=== PATIENT | male | born 1970 | race Caucasian/White ===

== ENCOUNTER → 2016-09-08 | Outpatient (CLI) | payer OTHER, MEDICARE ==
[2016-09-08 13:57] VITALS: BP 166/99; PULSE 93; RESP 20; TEMP 98.1
--- NOTE | 2016-09-08 14:33 | P.PN ---
Subjective This is follow-up visit for this patient with a history of severe and chronic left lower extremity pain, due to crush injury, and subsequent the patient had multiple surgical interventions, and later on he developed complex regional pain syndrome type I, patient had multiple interventional pain management injection, and he did not have any success for long-term relief, patient concerned about spinal cord stimulator because of his ongoing infection and his poorly controlled diabetes, and is currently on pain medications 1- methadone 10 mg 3 times a day 2- [place] 10/325 every 6 hours 3- Lyrica 75 mg 3 times a day Patient denies any side effects of the medication, denies excessive drowsiness or sleepiness, denies suicidal ideation, and reports that the current pain medication is helping To control the pain and improve activity of daily living Physical Examinations : 1-Constitutiona : Cooperative , not in acute distress . 2-HEENT : nech ; supple , no Lymphadenopathy , no Thyromegaly , normal thyroid size . eyes : no ptosis , no icterus, no photophobia . ENT : normal of hearing , normal oropharynx , no Thrush . 3- Respiratory : Chest clear to auscultations Bilaterally , no wheezing , no Rhonchi . 4- Cardiovascular : regular rate and rhythem , S1 , S2 , no S3 , no S4. 5- Gastrointestinal : abdomen soft no tenderness , bowel sounds positive all four quadrents , no organomegally . 6- Genitourinary : Defferred . 7- neurologic : Cranial nerve II to XII intact , no focal neurological deffecit . 8-psychatric : alert , oriented X 3 , appropriate affect , intact judgment and insight . 9-Lymphatic : no Lymphadenopathy . 10- musculoskeltal : exams of the cervical spine = motor strength normal bilateral upper extremities exams of the Lumber spine = motor strength lower extremities ,thigh and legs .5/5 There is significant swelling, and discoloration, and listhesis in the left lower extremity below the knee. There is dysesthesia and allodynia in the left lower extremity below the knee Assessment and plan = Chronic and severe left lower extremity pain, status post crush injury with multiple surgical interventions and patient developed symptoms of RSD Left Lower Extremity, currently patient had swelling in his left leg and possible infection, patient will follow up with his orthopedic surgeon at [facility], and he already has established relationship with her orthopedic surgeon, -chronic and current use of high-risk medication (Opioids). The patient was counseled about risk of opioid use, psychological risk associated with opioids and was orally counseled to not overuse , abuse , divert ,or sell dictations to take medications as prescribed only , and to restore medication in safe location , and patient counseled against driving while using narcotic medications, and also not to use alcohol or any illicit recreational drugs the patient's verbalized understanding that the lack of compliance will result in failure to renew narcotic prescription and possible discharge from the clinic - diagnoses, prognosis, and treatment options including but not limited to physical therapy, surgical interventions, interventional therapies and medication management including narcotics and adjuvant medication were discussed with the patient and all questions answered to the patient's satisfaction. -medication refile =1-methadone 10 mg every 8 hours dispense 90 with 2 refills , 2-[place] 10/325 every 6 hours dispense 120 2 refills 3-Lyrica 75 mg 3 times a day dispense 90 with 2 refills , next visit we will do a urine drug screen , and also next visit and EKG to check his QT intervals because patient use methadone -procedure=none
== END | disposition home or self-care (01) ==
LOC: PNWHC3 13:07
PROVIDERS: ATTEND Specialist
DX: G90.522 Complex regional pain syndrome I of left lower limb (principal); M79.89 Other specified soft tissue disorders; Z98.890 Other specified postprocedural states; Z79.891 Long term (current) use of opiate analgesic; Z79.899 Other long term (current) drug therapy
CPT/HCPCS: 99211

== ENCOUNTER → 2016-12-15 | Outpatient (CLI) | payer OTHER, MEDICARE ==
[2016-12-15 12:09] VITALS: BP 176/114; PULSE 81; RESP 18; TEMP 98
--- NOTE | 2016-12-16 15:10 | P.PN ---
Subjective This is from visits for this 46 years old male with a chronic history of left lower extremity pain, and retool crush injury and subsequently patient had multiple surgical intervention and tone a developed complex regional pain syndrome type I left lower extremity, he had multiple pain management interventions but he never had long-term benefit from it, is currently, methadone 10 mg to 8 hours, [place] 10/325 every 6 hours and Lyrica 75 mg 3 times a day and Lidoderm patch 5% to be applied to the left lower extremity 12 hours on 12 h off , denies any side effect of the medication he denies any excessive drowsiness or sleepiness and he denies any suicidal ideation, he reported that the current pain medication helping him to control his pain, Physical Examinations : 1-Constitutiona : Cooperative , not in acute distress . 2-HEENT : nech ; supple , no Lymphadenopathy , normal thyroid size . eyes : no ptosis , no icterus, no photophobia . ENT : normal of hearing , normal oropharynx , no Thrush . 3- Respiratory : Chest clear to auscultations Bilaterally , no wheezing , no Rhonchi . 4- Cardiovascular : regular rate and rhythem , S1 , S2 , no S3 , no S4. 5- Gastrointestinal : abdomen soft no tenderness , bowel sounds positive all four quadrents , no organomegally . 6- Genitourinary : Defferred . 7- neurologic : Cranial nerve II to XII intact , no focal neurological deffecit . 8-psychatric : alert , oriented X 3 , appropriate affect , intact judgment and insight . 9-Lymphatic : no Lymphadenopathy . 10- musculoskeltal : there is swelling and discoloration, and allodynia and dysesthesia, lower extremity below the knee, Assessment and plan= comples regional pain syndrome type one left lower extremity , stable on the current medication continue the current medication and he will follow up in 2 months , Objective - Vital Signs Vital signs: Vital Signs Temp 98.0 F 12/15/16 11:59 Pulse 81 12/15/16 11:59 Resp 18 12/15/16 11:59 BP 176/114 12/15/16 11:59 Pulse Ox Intake & Output 12/15/16 12/16/16 12/16/16 18:59 06:59 18:59 Weight 145.15 kg
== END | disposition home or self-care (01) ==
LOC: PNWHC3 11:43
PROVIDERS: ATTEND Specialist
DX: G90.522 Complex regional pain syndrome I of left lower limb (principal); Z79.899 Other long term (current) drug therapy
CPT/HCPCS: 99211

== ENCOUNTER → 2017-02-09 | Outpatient (CLI) | payer OTHER, MEDICARE ==
[2017-02-09 13:28] VITALS: BP 156/100; PULSE 74; RESP 16; TEMP 97.5
--- NOTE | 2017-02-09 14:02 | P.PN ---
Progress Note - Text Patient returns for followup for chronic left lower extremity pain worst in the ankle and lower leg due to crush injury, subsequent surgery, and development of complex regional pain syndrome. Patient has not undergone any interventional procedures with our clinic, but has tried lumbar sympathetic blocks in the past with different pain physicians without significant relief and is concerned about spinal cord stimulator implant from a previous opinion from Dr. Manuel as he has tendency to get infections secondary to his weight and poorly controlled DM. Patient continues on methadone and [place] medications for pain with decent relief. Patient denies adverse drug effects from medications. Today, pt denies new-onset weakness, bowel/bladder incontinence, or any other signs or symptoms of cauda equina syndrome. Patient is requesting Lyrica script today. In addition to above, 13-point review of systems is also negative for chest pain , shortness of breath, changes in vision, changes in hearing, new onset weakness , abdominal pain, diarrhea, extreme fatigue, malaise, fever, skin changes, homicidal or suicidal ideation, or bowel or bladder incontinence. Gen: WDWN, AAOx3, NAD, uses cane HEENT: NCAT, EOMI, hearing grossly normal Pulm: resp unlabored Abd: soft, NT, ND Neck: supple, trachea midline Lower extremity: +allodynia, + hyperalgesia along LLE worst in ankle; significant deformity in LLE with swelling. Decreased ROM dorsiflexion/ plantarflexion and decreased strength; decreased ROM and strength in knee flexion/extension Neuro: CN II-XII grossly intact, muscle strength lower extremities 3+/5 LLE in ankle, 5/5 RLE ankle Assessment: 1. complex regional pain syndrome type II left lower extremity 2. chronic pain syndrome 3. morbid obesity Plan: 1. Explanation: Opioid and psychological risk scores were reviewed. Diagnoses , prognoses, and multiple treatment options including but not limited to physical therapy, interventional therapies, adjuvant medical therapies, narcotic medication therapies, and surgery were discussed with the patient and all questions were answered to the patient's satisfaction. 2. Opioid agreement: Patient signed narcotic agreement previously, and was orally counseled to not overuse, abuse, divert, or cell medications, and to take them as prescribed by only 1 healthcare provider. The patient was also counseled to take medications as prescribed by only 1 healthcare provider and to store opioid medications in the safe and preferably locked location. Patient was also counseled against driving while using narcotic medications and also to not use alcohol or any illicit or recreational drugs. The patient verbalized understanding that lack of compliance with any of the above and likely result in failure to renew narcotic prescriptions, possible discharge from the clinic, and possible legal ramifications thereafter if indicated. 3. Counseling: The patient was counseled extensively on BODY MASS INDEX, EXERCISE. Specifically, the patient was instructed regarding the importance of obesity and exercise in the context of both chronic pain and overall health. 4. Procedures: None 5. Consultations: None 6. Investigations: none 7. Medications: Methadone 10 mg #90 with one refill, [place] decreased to 10/ 325 #90 with one refill; increased Lyrica to 100 mg po TID PQRS measures: 1-Patient's medications are documented in the chart. 2-Tobacco use is negative. 3-Patient has not had a pneumococcal vaccine. 4-Advanced care planning discussed, patient cannot give. 5-Opioid contract signed with the patient. 6-Pain positive, follow-up visit or procedure scheduled 7-Patient's blood pressure measured and documented, and patient will follow up with the primary care due to hypertension. 8-Patient's weight was measured, and body mass index ABOVE the normal limits, and counseling was done. Patient instructed to follow up with PCP for weight loss techniques and possible pharmacologic management. 9-Patient WAS NOT identified as an unhealthy alcohol user.
== END | disposition home or self-care (01) ==
LOC: PNWHC3 13:06
PROVIDERS: ATTEND Anesthesiology
DX: G57.72 Causalgia of left lower limb (principal); G89.4 Chronic pain syndrome; E66.01 Morbid (severe) obesity due to excess calories
CPT/HCPCS: 80307; 80356; 80358; 80364; 99211

== ENCOUNTER → 2017-04-06 | Outpatient (CLI) | payer OTHER, MEDICARE ==
--- NOTE | 2017-04-06 15:41 | P.PN ---
Progress Note - Text This is a 46-year-old male with left lower extremity complex regional pain syndrome due to trauma. The patient has severe swelling in the left calf and ankle. His pain has been well-controlled with a combination of methadone 30 mg a day [place] 10 mg 3 times a day , and Lyrica 100 mg 3 times a day. We will continue with these medications and I will repeat the EKG to rule out any prolongation of the QT interval on his next visit. He denies any heart palpitations. He is alert oriented 3 in no apparent distress he does not show any signs of increased sedation or any drug-seeking behavior. He denies any suicidal ideation. We will see the patient 3 months from now.
[2017-04-06 15:47] VITALS: BP 189/95; PULSE 89; RESP 14
== END ==
LOC: PNWHC3 14:27
PROVIDERS: ATTEND Anesthesiology
DX: M79.605 Pain in left leg (principal)
CPT/HCPCS: 99211

== ENCOUNTER → 2017-06-29 | Outpatient (CLI) | payer MEDICARE, OTHER ==
[2017-06-29 13:00] VITALS: RESP 16
--- NOTE | 2017-06-29 13:21 | P.PN ---
Progress Note - Text Progress Note Date: 06/29/17 This is a 46-year-old male with history of complex regional pain syndrome in the left lower extremity due to a job injury. The patient is on disability. His been on a stable dose of methadone 30 mg a day and [place] 3 times a day. He also uses TENS unit to help with this pain. He does not show any drug-seeking behavior and he denies any suicidal or homicidal thoughts. Today I will refill his prescriptions for 3 months I will give him prescription for TENS unit also I will send him to have an EKG to rule out any QT prolongation even though the risk of this happening with the such a small dose of methadone at 30 mg a day is low but just to be extra cautious. PQRS measures: 1-Patient's medications are documented in the chart. 2-Tobacco use is negative, counseling given 3-Patient has had no pneumococcal vaccine. 4-Advanced care planning discussed, patient unable to give 5-Opioid contract signed with the patient. 6-Pain positive, follow-up visit or procedure scheduled 7-Patient's blood pressure measured and documented .BP is elevated. Patient will follow up with his primary care physician about that.. 8-Patient's weight was measured, and body mass index ABOVE the normal limits, and counseling was done. Patient instructed to follow up with PCP. 9-Patient WAS NOT identified as an unhealthy alcohol user.
[2017-06-29 13:44] VITALS: BP 171/100; PULSE 89
== END | disposition home or self-care (01) ==
LOC: PNWHC3 12:16
PROVIDERS: ATTEND Anesthesiology
DX: M79.605 Pain in left leg (principal); Z79.891 Long term (current) use of opiate analgesic
CPT/HCPCS: 93005; 99211

== ENCOUNTER → 2017-09-21 | Outpatient (CLI) | payer OTHER, MEDICARE ==
[2017-09-21 14:16] VITALS: BP 150/93; PULSE 87; RESP 18; TEMP 98.7
--- NOTE | 2017-09-21 14:28 | P.PN ---
Subjective Progress Note Date: 09/21/17 This is follow-up visit for this patient with a history of severe and chronic left lower extremity pain secondary to crush injury to his left lower extremity, patient had multiple surgical intervention and later on he developed complex regional pain syndrome type I left lower extremity, he had multiple pain intervention is procedure, and he never get long-term benefit , Currently she is on methadone 10 mg every 8 hours and [place] 10/325 every 8 hours , Lyrica 100 mg 3 times a day Patient denies any side effects of the medication, denies excessive drowsiness or sleepiness, denies suicidal ideation, and reports that the current pain medication is helping To control the pain and improve activity of daily living Patient denies any motor or sensory deficit , patient denies any fever or night sweats, denies any change in the bowel movements or urination Physical Examinations : 1-Constitutiona : Cooperative , not in acute distress . 2-HEENT : nech ; supple , no Lymphadenopathy , no Thyromegaly , normal thyroid size . eyes : no ptosis , no icterus, no photophobia . ENT : normal of hearing , normal oropharynx , no Thrush . 3- Respiratory : Chest clear to auscultations Bilaterally , no wheezing , no Rhonchi . 4- Cardiovascular : regular rate and rhythem , S1 , S2 , no S3 , no S4. 5- Gastrointestinal : abdomen soft no tenderness , bowel sounds positive all four quadrents , no organomegally . 6- Genitourinary : Defferred . 7- neurologic : Cranial nerve II to XII intact , no focal neurological deffecit . 8-psychatric : alert , oriented X 3 , appropriate affect , intact judgment and insight . 9-Lymphatic : no Lymphadenopathy . 10- musculoskeltal : There is swelling and discoloration and anadenia and dysesthesia in the left lower extremity below the knee Assessment and plan = Complex regional pain syndrome type I left lower extremity Patient had no benefit from interventional pain management procedures, he denies any side effects of the medication continue the current medication, MAPS reviewed, prescription refill for 3 months for methadone 10 mg 3 times a day dispense 90 with 2 refills, [place] 10/ 325 every 8 hours dispense 90 with 2 refills, Lyrica 100 mg 3 times a day dispense 90 with 2 refills , next visit consider UDS Objective - Vital Signs Vital signs: Vital Signs Temp 98.7 F 09/21/17 14:05 Pulse 87 09/21/17 14:05 Resp 18 09/21/17 14:05 BP 150/93 09/21/17 14:05 Pulse Ox 97 09/21/17 14:05 Intake & Output 09/20/17 09/21/17 09/21/17 18:59 06:59 18:59 Weight 131.542 kg
== END | disposition home or self-care (01) ==
LOC: PNWHC3 13:15
PROVIDERS: ATTEND Specialist
DX: G90.522 Complex regional pain syndrome I of left lower limb (principal); Z79.891 Long term (current) use of opiate analgesic; Z79.899 Other long term (current) drug therapy
CPT/HCPCS: 99211

== ENCOUNTER → 2017-12-27 | Outpatient (CLI) | payer OTHER, MEDICARE ==
[2017-12-27 13:27] VITALS: BP 205/115; PULSE 94; RESP 16
--- NOTE | 2017-12-27 20:04 | P.PN ---
Subjective Progress Note Date: 12/27/17 This is a follow-up visit for this 47 years old male with a chronic history of severe left lower extremity pain, is very close with complex regional pain syndrome type I left lower extremity, we have done multiple pain intervention is procedure, and patient with only short-term benefit from it, and he is currently on pain medication methadone 10 mg 3 times a day, [place] 10/325 every 8 hours when necessary, and Lyrica 100 mg 3 times a day, he denies any side effects of the medication he denies any excessive drowsiness or sleepiness, and he reported the current medication helping him to control the pain and electrical activity of daily livings Objective - Vital Signs Vital signs: Vital Signs Temp Pulse 94 12/27/17 13:16 Resp 16 12/27/17 13:16 BP 205/115 12/27/17 13:16 Pulse Ox 97 12/27/17 13:16 Intake & Output 12/27/17 12/27/17 12/28/17 06:59 18:59 06:59 Weight 135.171 kg - Exam Physical Examinations : 1-Constitutiona : Cooperative , not in acute distress . 2-HEENT : nech ; supple , no Lymphadenopathy , normal thyroid size . eyes : no ptosis , no icterus, no photophobia . ENT : normal of hearing , normal oropharynx , no Thrush . 3- Respiratory : Chest clear to auscultations Bilaterally , no wheezing , no Rhonchi . 4- Cardiovascular : regular rate and rhythem , S1 , S2 , no S3 , no S4. 5- Gastrointestinal : abdomen soft no tenderness , bowel sounds , no organomegally . 6- Genitourinary : Defferred . 7- neurologic : Cranial nerve II to XII intact , no focal neurological deffecit . 8-psychatric : alert , oriented X 3 , appropriate affect , intact judgment and insight . 9-Lymphatic : no Lymphadenopathy . 10- musculoskeltal : Left lower extremity discoloration and swelling , positive allodynia left lower extremity below the knee area Assessment and Plan Plan: Assessment and plan=1-complex regional pain syndrome type I left lower extremity. Patient had no benefit from interventional pain management, 2-chronic and current use of high-risk medication specifically opiate, patient currently on methadone 10 mg 3 times a day, [place] 10/325 Every 8 hours when necessary, and Lyrica 100 mg 3 times a day, he denies any side effects of the medication, the prescription refill 2 months is given , urine drug screen ordered today. 3-blood pressure was extremely high and I explained to the patient that he had hypertension emergency and he needs to go to the In the emergency room, for management of his blood pressure, I explained to the patient the risk of not treating high blood pressure which could cause, stroke heart attack liver and kidney damage Time with Patient: Less than 30
== END | disposition home or self-care (01) ==
LOC: PNWHC3 13:01
PROVIDERS: ATTEND Specialist
DX: G90.522 Complex regional pain syndrome I of left lower limb (principal); M79.605 Pain in left leg; I10 Essential (primary) hypertension; Z79.891 Long term (current) use of opiate analgesic
CPT/HCPCS: 80356; 99211

== ENCOUNTER → 2018-02-21 | Outpatient (CLI) | payer MEDICARE, OTHER ==
[2018-02-21 13:29] VITALS: BP 138/97; PULSE 91; RESP 18
--- NOTE | 2018-02-21 14:13 | P.PN ---
Subjective Progress Note Date: 02/21/18 Principal diagnosis: Complex regional pain syndrome in the left leg. This is a 47-year-old male with history of work injury which crashed his left leg. The patient has constant pain in the left upper extremity with severe swelling and the formation of the left calf area. The pain gets worse by weight -bearing activities. The patient has been using methadone 30 mg per day and [place] 10 mg 3 times a day. His last QT interval was 421 ms. Objective - Vital Signs Vital signs: Vital Signs Temp Pulse 91 02/21/18 13:20 Resp 18 02/21/18 13:20 BP 138/97 02/21/18 13:20 Pulse Ox 97 02/21/18 13:20 Intake & Output 02/20/18 02/21/18 02/21/18 18:59 06:59 18:59 Weight 127.006 kg - Constitutional General appearance: Present: morbidly obese - EENT Eyes: Present: PERRLA - Respiratory Respiratory: bilateral: CTA - Cardiovascular Heart sounds: normal: S1, S2 - Neurologic Neurologic Comment(s): The patient has hyperactive left knee reflex and absent left ankle reflex. He has no allodynia to touch in the deformed area of his left leg. His left calf is huge because of his injury. Neurologic: Present: CNII-XII intact - Psychiatric Psychiatric: Present: A&O x's 3, appropriate affect Assessment and Plan Plan: This is a 47-year-old gentleman with a combination of mechanical and neuropathic pain and possible complex regional pain syndrome in the left leg. There is no allodynia to touch in the injected area. The patient is on a daily dose of 30 mg of methadone and usually at this dose he don't see QT interval changes, however to be on the safe side I would order a 12-lead EKG. I will refill his methadone and [place]. We will see him in 2 months.
== END | disposition home or self-care (01) ==
LOC: PNWHC3 12:54
PROVIDERS: ATTEND Anesthesiology
DX: G89.4 Chronic pain syndrome (principal); I45.81 Long QT syndrome
CPT/HCPCS: 93005; 99211

== ENCOUNTER → 2018-08-14 | Outpatient (CLI) | payer MEDICARE, OTHER ==
[2018-08-14 13:24] VITALS: BP 203/104; PULSE 117; RESP 16
--- NOTE | 2018-08-15 10:41 | P.PN ---
Subjective Progress Note Date: 08/14/18 This is a follow-up visit for this 47 years old male with a chronic history of severe left lower extremity pain, started after he had traumatic injury to his left lower extremity, he is Diagnosed with complex regional pain syndrome type I left lower extremity, we have done multiple pain intervention is procedure, and patient with only short-term benefit from it, and he is currently on pain medication methadone 10 mg 3 times a day, [place] 10/325 every 8 hours when necessary, he denies any side effects of the medication he denies any excessive drowsiness or sleepiness, and he reported the current medication helping him to control the pain and electrical activity of daily livings Physical Examinations : 1-Constitutiona : Cooperative , not in acute distress . 2-HEENT : nech ; supple , no Lymphadenopathy , normal thyroid size . eyes : no ptosis , no icterus, no photophobia . ENT : normal of hearing , normal oropharynx , no Thrush . 3- Respiratory : Chest clear to auscultations Bilaterally , no wheezing , no Rhonchi . 4- Cardiovascular : regular rate and rhythem , S1 , S2 , no S3 , no S4. 5- Gastrointestinal : abdomen soft no tenderness , bowel sounds , no organomegally . 6- Genitourinary : Defferred . 7- neurologic : Cranial nerve II to XII intact , no focal neurological deffecit . 8-psychatric : alert , oriented X 3 , appropriate affect , intact judgment and insight . 9-Lymphatic : no Lymphadenopathy . 10- musculoskeltal : Left lower extremity discoloration and swelling , positive allodynia left lower extremity below the knee area Assessment and plan=1-complex regional pain syndrome type I left lower extremity. Patient had no benefit from interventional pain management, 2-chronic and current use of high-risk medication specifically opiate, patient currently on methadone 10 mg 3 times a day, [place] 10/325 every 8 hours dispense 90 with 1 refill he denies any side effects of the medication, the prescription refill 2 months is given , MAPS reviewed and it was ok Patient will follow up with his trauma surgeon for reevaluation . Blood pressure was extremely elevated and I discussed with the patient and the risk of not treating blood pressure, patient reported that he already taking blood pressure medication and is following up with his primary care And I explained to the patient that he has a blood pressure emergency and need to be treated FERNANDO PQRS Measure Charge Sheet Measure #130: Documentation of Current Meds in Medical Chart: Patient's medications documented in chart Measure #226: Tobacco Use: Screen & Cessation Intervention: Pt not a tobacco user Measure #111: Pneumonia Vaccination: Pneumococcal vaccine NOT administered or previously given Measure #47: Advance Care Plan: Advance care planning discussed & documented, pt chose/unable to give Measure #412: Opioid Treatment Agreement: Documented signed opioid trtmnt agreemnt min once during opioid trtmnt Measure #408: Opioid Therapy Follow-up Evaluation: Patient had f/u eval minimum every 3 months during opioid therapy Measure #317: Preventitive Care & Scrn High Bld Press & F/U: Blood pressure elevated he will follow up with his primary care Measure #128: Body Mass Index (BMI) Screening & Follow-up: BMI documented ABOVE normal parameters - f/u documented Measure #131: Pain Assessment & Follow-up: Pain positive & plan documented, Follow-up scheduled Measure #431: Unhealthy Alcohol Use Preventative Care & Scrn: Patient not identified as an unhealthy alcohol user PQRS Narrative: - Controlled Substance Measures Is patient prescribed a controlled substance at discharge?: Yes When asked, does pt state using other controlled substances?: No If prescribed controlled substance>3 days was MAPS reviewed?: Yes If Rx opioid, was Start Talking consent form obtained?: No If opioid is for acute pain is fill amount 7 days or less?: No Was information provided regarding opioid addiction?: Yes Objective - Vital Signs Vital signs: Vital Signs Temp Pulse 117 H 08/14/18 13:19 Resp 16 08/14/18 13:19 BP 203/104 08/14/18 13:19 Pulse Ox 94 L 08/14/18 13:19 Intake & Output 08/14/18 08/15/18 08/15/18 18:59 06:59 18:59 Weight 111.13 kg
== END ==
LOC: PNWHC3 12:50
PROVIDERS: ATTEND Specialist
DX: G90.522 Complex regional pain syndrome I of left lower limb (principal); Z79.891 Long term (current) use of opiate analgesic; Z79.899 Other long term (current) drug therapy
CPT/HCPCS: 99211

== ENCOUNTER → 2018-10-09 | Outpatient (CLI) | payer MEDICARE, OTHER ==
[2018-10-09 13:26] VITALS: BP 149/89; PULSE 81; RESP 16
--- NOTE | 2018-10-10 09:55 | P.PN ---
Subjective Progress Note Date: 10/09/18 This is a follow-up visit for this 48 years old male with a chronic history of severe left lower extremity pain, started after he had traumatic injury to his left lower extremity, he is Diagnosed with complex regional pain syndrome type I left lower extremity, we have done multiple pain intervention is procedure, and patient with only short-term benefit from it, and he is currently on pain medication methadone 10 mg 3 times a day, [place] 10/325 every 8 hours when necessary, he denies any side effects of the medication he denies any excessive drowsiness or sleepiness, and he reported the current medication helping him to control the pain and electrical activity of daily livings Physical Examinations : -Constitutiona : Cooperative , not in acute distress . -HEENT : nech ; supple , no Lymphadenopathy , normal thyroid size . eyes : no ptosis , no icterus, no photophobia . . - musculoskeltal : Left lower extremity discoloration and swelling, positive allodynia left lower extremity below the knee area Assessment and plan=1-complex regional pain syndrome type I left lower extremity. Patient had no benefit from interventional pain management, 2-chronic and current use of high-risk medication specifically opiate, patient currently on methadone 10 mg 3 times a day, [place] 10/325 every 8 hours dispense 90 with 1 refill he denies any side effects of the medication, the prescription refil MAPS reviewed and it was ok Patient will follow up with his trauma surgeon for reevaluation . Blood pressure elevated and I discussed with the patient and the risk of not treating blood pressure, patient reported that he already taking blood pressure medication and is following up with his primary care PQRS Measure Charge Sheet Measure #130: Documentation of Current Meds in Medical Chart: Patient's medications documented in chart Measure #226: Tobacco Use: Screen & Cessation Intervention: Pt not a tobacco user Measure #111: Pneumonia Vaccination: Pneumococcal vaccine NOT administered or previously given Measure #47: Advance Care Plan: Advance care planning discussed & documented, pt chose/unable to give Measure #412: Opioid Treatment Agreement: Documented signed opioid trtmnt agreemnt min once during opioid trtmnt Measure #408: Opioid Therapy Follow-up Evaluation: Patient had f/u eval minimum every 3 months during opioid therapy Measure #317: Preventitive Care & Scrn High Bld Press & F/U: Blood pressure elevated he will follow up with his primary care Measure #128: Body Mass Index (BMI) Screening & Follow-up: BMI documented ABOVE normal parameters - f/u documented Measure #131: Pain Assessment & Follow-up: Pain positive & plan documented, Follow-up scheduled Measure #431: Unhealthy Alcohol Use Preventative Care & Scrn: Patient not identified as an unhealthy alcohol user PQRS Narrative: - Controlled Substance Measures Is patient prescribed a controlled substance at discharge?: Yes When asked, does pt state using other controlled substances?: No If prescribed controlled substance>3 days was MAPS reviewed?: Yes If Rx opioid, was Start Talking consent form obtained?: No If opioid is for acute pain is fill amount 7 days or less?: No Was information provided regarding opioid addiction?: Yes Objective - Vital Signs Vital signs: Vital Signs Temp Pulse 81 10/09/18 13:15 Resp 16 10/09/18 13:15 BP 149/89 10/09/18 13:15 Pulse Ox 98 10/09/18 13:15 Intake & Output 10/09/18 10/10/18 10/10/18 18:59 06:59 18:59 Weight 131.542 kg
== END ==
LOC: PNWHC3 12:45
PROVIDERS: ATTEND Specialist
DX: G90.522 Complex regional pain syndrome I of left lower limb (principal); Z79.891 Long term (current) use of opiate analgesic; Z79.899 Other long term (current) drug therapy
CPT/HCPCS: 99211

== ENCOUNTER → 2018-12-04 | Outpatient (CLI) | payer MEDICARE, OTHER ==
--- NOTE | 2018-12-04 12:39 | P.PN ---
Subjective Progress Note Date: 12/04/18 This is a 48-year-old gentleman with history of complex regional pain syndrome in the left leg status post work injury. The patient's pain has been relatively well controlled with methadone and [place]. He failed to respond to interventional pain procedures with prolonged relief of pain. His orthopedic garcía rgeon is going to put him in a special type of socks as he states. The last time he felt his prescriptions was on 11/15/2018. Today, pt denies new-onset weakness, bowel/bladder incontinence, or any other signs or symptoms of cauda equina syndrome. There are no signs of acute intoxication, and no indications of medication diversion or overuse. In addition to above, 13-point review of systems is also negative for chest pain, shortness of breath, changes in vision, changes in hearing, new onset weakness, abdominal pain, diarrhea, extreme fatigue, malaise, fever, skin changes, homicidal or suicidal ideation, or bowel or bladder incontinence. Vital Signs: Reviewed in EMR Gen: AAOx3, NAD HEENT: PERRLA,hearing grossly normal Pulm: resp unlabored,CTA Heart:S1,S2, No [place] Neck: supple, trachea midline Positive allodynia to touch in the left leg below the knee level. Swelling and the formation of the left leg beneath the knee level. Neuro: CN II-XII grossly intact, Imaging: Reviewed in EMR/chart Assessment: CRPS 1 in the left leg Morbid obesity Opioid dependence Plan: 1. Explanation: Opioid and psychological risk scores were reviewed. Diagnoses, prognoses, and multiple treatment options including but not limited to physical therapy, interventional therapies, adjuvant medical therapies, narcotic medication therapies, and surgery were discussed with the patient and all questions were answered to the patient's satisfaction. 2. Opioid agreement: Signed with the patient and the patient is warned not to use opioids while driving or before driving and not to combine opioids with benzodiazepines or alcohol. 3. Counseling: The patient was counseled extensively on SMOKING CESSATION, BODY MASS INDEX, EXERCISE. Specifically, the patient was instructed regarding the importance of smoking cessation, obesity, and exercise in the context of both chronic pain and overall health. 4. Procedures: None 5. Consultations: None 6. Investigations: None 7. Medications: Continue methadone 30 mg a day and [place] 10 mg 3 times a day 8. Disposition: Return to clinic in 6 weeks 9. Maps were reviewed and were appropriate. PQRS measures: 1-Patient's medications are documented in the chart. 2-Tobacco use is negative, counseling given 3-Patient has not had a pneumococcal vaccine. 4-Advanced care planning discussed, patient unable to give 5-Opioid contract signed with the patient. 6-Pain positive, follow-up visit or procedure scheduled 7-Patient's blood pressure measured and documented above normal limits. The patient will follow up with his primary care physician. 8-Patient's weight was measured, and body mass index ABOVE the normal limits, and counseling was done. Patient instructed to follow up with PCP. 9-Patient WAS NOT identified as an unhealthy alcohol user. Controlled Substance Measures Is patient prescribed a controlled substance at discharge?: Yes When asked, does pt state using other controlled substances?: No If prescribed controlled substance>3 days was MAPS reviewed?: Yes If Rx opioid, was Start Talking consent form obtained?: Yes If opioid is for acute pain is fill amount 7 days or less?: No Was information provided regarding opioid addiction?: Yes Objective - Vital Signs Vital signs: Intake & Output 12/03/18 12/04/18 12/04/18 18:59 06:59 18:59 Weight 131.542 kg
[2018-12-04 12:41] VITALS: BP 189/97; PULSE 78; RESP 18
== END ==
LOC: PNWHC3 12:14
PROVIDERS: ATTEND Anesthesiology
DX: G90.522 Complex regional pain syndrome I of left lower limb (principal); E66.01 Morbid (severe) obesity due to excess calories; F11.20 Opioid dependence, uncomplicated; Z79.899 Other long term (current) drug therapy; Z79.891 Long term (current) use of opiate analgesic
CPT/HCPCS: 99211

== ENCOUNTER → 2019-01-22 | Outpatient (CLI) | payer MEDICARE, OTHER ==
[2019-01-22 14:09] VITALS: BP 181/105; PULSE 93; RESP 18
--- NOTE | 2019-01-22 14:18 | P.PN ---
Subjective Progress Note Date: 01/22/19 This is a 48-year-old gentleman with history of complex regional pain syndrome in the left leg status post work injury. The patient's pain has been relatively well controlled with methadone and [place]. He failed to respond to interventional pain procedures with prolonged relief of pain. He is still await ing on the brace that his orthopedic surgeon was going to design for his left leg. The patient had good response to usage of TENS unit previously. Today, pt denies new-onset weakness, bowel/bladder incontinence, or any other signs or symptoms of cauda equina syndrome. There are no signs of acute intoxication, and no indications of medication diversion or overuse. In addition to above, 13-point review of systems is also negative for chest pain, shortness of breath, changes in vision, changes in hearing, new onset weakness, abdominal pain, diarrhea, extreme fatigue, malaise, fever, skin changes, homicidal or suicidal ideation, or bowel or bladder incontinence. Vital Signs: Reviewed in EMR Gen: AAOx3, NAD HEENT: PERRLA,hearing grossly normal Pulm: resp unlabored,CTA Heart: Regular Neck: supple, trachea midline Positive allodynia to touch in a few patches in the left leg below the knee level. Swelling of the left leg beneath the knee level. Neuro: CN II-XII grossly intact, Imaging: Reviewed in EMR/chart Assessment: CRPS 1 in the left leg Morbid obesity Opioid dependence Plan: 1. Explanation: Opioid and psychological risk scores were reviewed. Diagnoses, prognoses, and multiple treatment options including but not limited to physical therapy, interventional therapies, adjuvant medical therapies, narcotic medication therapies, and surgery were discussed with the patient and all questions were answered to the patient's satisfaction. 2. Opioid agreement: Signed with the patient and the patient is warned not to use opioids while driving or before driving and not to combine opioids with benzodiazepines or alcohol. 3. Counseling: The patient was counseled extensively on SMOKING CESSATION, BODY MASS INDEX, EXERCISE. Specifically, the patient was instructed regarding the importance of smoking cessation, obesity, and exercise in the context of both chronic pain and overall health. 4. Procedures: None 5. Consultations: The patient had good response to TENS unit previously Mike will give him prescription for that today 6. Investigations: None 7. Medications: Continue methadone 30 mg a day and [place] 10 mg 3 times a day 8. Disposition: Return to clinic in 8 weeks 9. Maps were reviewed and were appropriate. PQRS measures: 1-Patient's medications are documented in the chart. 2-Tobacco use is negative, counseling given 3-Patient has not had a pneumococcal vaccine. 4-Advanced care planning discussed, patient unable to give 5-Opioid contract signed with the patient. 6-Pain positive, follow-up visit or procedure scheduled 7-Patient's blood pressure measured and documented above normal limits. The patient will follow up with his primary care physician. 8-Patient's weight was measured, and body mass index ABOVE the normal limits, and counseling was done. Patient instructed to follow up with PCP. 9-Patient WAS NOT identified as an unhealthy alcohol user. Objective - Vital Signs Vital signs: Vital Signs Temp Pulse 93 01/22/19 14:05 Resp 18 01/22/19 14:05 BP 181/105 01/22/19 14:05 Pulse Ox 96 01/22/19 14:05 Intake & Output 01/21/19 01/22/19 01/22/19 18:59 06:59 18:59 Weight 127.006 kg
== END | disposition home or self-care (01) ==
LOC: PNWHC3 13:50
PROVIDERS: ATTEND Anesthesiology
DX: G90.522 Complex regional pain syndrome I of left lower limb (principal); F11.20 Opioid dependence, uncomplicated; E66.01 Morbid (severe) obesity due to excess calories; Z68.38 Body mass index [BMI] 38.0-38.9, adult; Z79.899 Other long term (current) drug therapy; Z79.891 Long term (current) use of opiate analgesic
CPT/HCPCS: 99211

== ENCOUNTER → 2019-04-02 | Outpatient (CLI) | payer OTHER, MEDICARE ==
[2019-04-02 13:38] VITALS: BP 155/93; PULSE 93; RESP 18
--- NOTE | 2019-04-02 14:14 | P.PN ---
Subjective Progress Note Date: 04/02/19 This is a follow-up visit for this 48 years old male with a chronic history of severe left lower extremity pain,he is Diagnosed with complex regional pain syndrome type I left lower extremity, we have done multiple pain intervention is procedure, and patient with only short-term benefit from it, and he is currently on pain medication methadone 10 mg 3 times a day, [place] 10/325 every 8 hours when necessary, he denies any side effects of the medication he denies any excessive drowsiness or sleepiness, and he reported the current medication helping him to control the pain and electrical activity of daily livings Physical Examinations : -Constitutiona : Cooperative , not in acute distress . -HEENT nech : supple , no Lymphadenopathy , normal thyroid size . eyes : no ptosis , no icterus, no photophobia . ENT : normal of hearing , normal oropharynx , no Thrush . - neurologic : Cranial nerve II to XII intact , no focal neurological deffecit . -psychatric : alert , oriented X 3 , appropriate affect , intact judgment and insight . -Lymphatic : no Lymphadenopathy . - musculoskeltal : Left lower extremity discoloration and swelling, positive allodynia left lower extremity below the knee area Assessment and plan=1-complex regional pain syndrome type I left lower extremity. Patient had no benefit from interventional pain management, 2-chronic and current use of high-risk medication specifically opiate, patient currently on methadone 10 mg 3 times a day, [place] 10/325 every 8 hours dispense 90 with 1 refill he denies any side effects of the medication, the prescription refill for 2 months MAPS reviewed and it was ok PQRS Measure Charge Sheet Measure #130: Documentation of Current Meds in Medical Chart: Patient's medications documented in chart Measure #226: Tobacco Use: Screen & Cessation Intervention: Pt not a tobacco user Measure #111: Pneumonia Vaccination: Pneumococcal vaccine NOT administered or previously given Measure #47: Advance Care Plan: Advance care planning discussed & documented, pt chose/unable to give Measure #412: Opioid Treatment Agreement: Documented signed opioid trtmnt agreemnt min once during opioid trtmnt Measure #408: Opioid Therapy Follow-up Evaluation: Patient had f/u eval minimum every 3 months during opioid therapy Measure #317: Preventitive Care & Scrn High Bld Press & F/U: Blood pressure is 155 over history elevated and he will follow up with the primary care Measure #128: Body Mass Index (BMI) Screening & Follow-up: BMI documented ABOVE normal parameters - f/u documented Measure #131: Pain Assessment & Follow-up: Pain positive & plan documented, Follow-up scheduled Measure #431: Unhealthy Alcohol Use Preventative Care & Scrn: Patient not identified as an unhealthy alcohol user PQRS Narrative: - Controlled Substance Measures Is patient prescribed a controlled substance at discharge?: Yes When asked, does pt state using other controlled substances?: No If prescribed controlled substance>3 days was MAPS reviewed?: Yes If Rx opioid, was Start Talking consent form obtained?: No If opioid is for acute pain is fill amount 7 days or less?: No Was information provided regarding opioid addiction?: Yes Objective - Vital Signs Vital signs: Vital Signs Temp Pulse 93 04/02/19 13:27 Resp 18 04/02/19 13:27 BP 155/93 04/02/19 13:27 Pulse Ox 97 04/02/19 13:27 Intake & Output 04/01/19 04/02/19 04/02/19 18:59 06:59 18:59 Weight 129.274 kg Assessment and Plan Time with Patient: Less than 30
== END | disposition home or self-care (01) ==
LOC: PNWHC3 13:02
PROVIDERS: ATTEND Specialist
DX: G90.522 Complex regional pain syndrome I of left lower limb (principal); Z79.891 Long term (current) use of opiate analgesic; Z79.899 Other long term (current) drug therapy
CPT/HCPCS: 99211

== ENCOUNTER → 2019-05-28 | Outpatient (CLI) | payer OTHER, MEDICARE ==
[2019-05-28 12:40] VITALS: BP 160/99; PULSE 91; RESP 16
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
== END | disposition home or self-care (01) ==
LOC: PNWHC3 12:14
PROVIDERS: ATTEND Anesthesiology
DX: G89.4 Chronic pain syndrome (principal); G57.72 Causalgia of left lower limb; E66.01 Morbid (severe) obesity due to excess calories; Z68.38 Body mass index [BMI] 38.0-38.9, adult; Z79.891 Long term (current) use of opiate analgesic
CPT/HCPCS: 80307; 99211; G0482

== ENCOUNTER → 2019-07-24 | Outpatient (CLI) | payer OTHER, MEDICARE ==
[2019-07-24 13:42] VITALS: BP 162/90; PULSE 80; RESP 18
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
== END | disposition home or self-care (01) ==
LOC: PNWHC3 12:16
PROVIDERS: ATTEND Specialist
DX: G90.522 Complex regional pain syndrome I of left lower limb (principal); Z79.891 Long term (current) use of opiate analgesic; Z79.899 Other long term (current) drug therapy
CPT/HCPCS: 99211

== ENCOUNTER → 2019-09-18 | Outpatient (CLI) | payer OTHER, MEDICARE ==
[2019-09-18 12:27] VITALS: BP 175/110; PULSE 102; RESP 18
--- NOTE | 2019-09-18 12:54 | P.PN ---
Subjective Progress Note Date: 09/18/19 This is a 48-year-old gentleman with history of crush injury to the left leg at work. The patient had multiple surgeries afterwards on the left leg. Right now he complains of pain mostly in the left foot with tingling and numbness in the toes and also numbness on the lateral aspect of the left leg beneath the knee level. His pain has been well-controlled with a combination of methadone and [place]. She takes 30 mg of methadone a day and 30 mg of [place] a day as needed. With this dose he is able to do his daily activities .he failed to respond to Lyrica and Neurontin previously due to side effects. Patient denies new-onset weakness, bowel/bladder incontinence, or any other signs or symptoms of cauda equina syndrome. There are no signs of acute intoxication, and no indications of medication diversion or overuse. In addition to above, 13-point review of systems is also negative for chest pain, shortness of breath, changes in vision, changes in hearing, new onset weakness, abdominal pain, diarrhea, extreme fatigue, malaise, fever, skin changes, homicidal or suicidal ideation, or bowel or bladder incontinence. Vital Signs: Reviewed in EMR Gen: AAOx3, NAD HEENT: PERRLA,hearing grossly normal Pulm: resp unlabored Heart: Regular Neck: supple, trachea midline Neuro exam of the lower extremities: The patient has significant enlargement of the left calf muscles with multiple scars from his previous surgeries. He does not have allodynia to touch in these areas however. Neuro: CN II-XII grossly intact, Imaging: Reviewed in EMR/chart Assessment: Left lower extremity complex regional pain syndrome type I Opioid dependence Obesity Plan: 1. Explanation: Opioid and psychological risk scores were reviewed. Diagnoses, prognoses, and multiple treatment options including but not limited to physical therapy, interventional therapies, adjuvant medical therapies, narcotic medication therapies, and surgery were discussed with the patient and all questions were answered to the patient's satisfaction. 2. Opioid agreement: Signed with the patient and the patient is warned not to use opioids while driving or before driving and not to combine opioids with benzodiazepines or alcohol. 3. Counseling: The patient was counseled extensively on SMOKING CESSATION, BODY MASS INDEX, EXERCISE. Specifically, the patient was instructed regarding the importance of smoking cessation, obesity, and exercise in the context of both chronic pain and overall health. 4. Procedures: None 5. Consultations: None 6. Investigations: None 7. Medications: Continue methadone and [place]. We will repeat his EKG today 8. Disposition: Return to clinic in 8 weeks 9. Maps were reviewed and were appropriate. Controlled Substance Measures Is patient prescribed a controlled substance at discharge?: Yes When asked, does pt state using other controlled substances?: No If prescribed controlled substance>3 days was MAPS reviewed?: Yes If Rx opioid, was Start Talking consent form obtained?: Yes If opioid is for acute pain is fill amount 7 days or less?: No Was information provided regarding opioid addiction?: Yes Objective - Vital Signs Vital signs: Vital Signs Temp Pulse 102 H 09/18/19 12:21 Resp 18 09/18/19 12:21 BP 175/110 09/18/19 12:21 Pulse Ox 97 09/18/19 12:21
== END | disposition home or self-care (01) ==
LOC: PNWHC3 12:04
PROVIDERS: ATTEND Anesthesiology
DX: G90.522 Complex regional pain syndrome I of left lower limb (principal); F11.20 Opioid dependence, uncomplicated; E66.9 Obesity, unspecified; Z68.33 Body mass index [BMI] 33.0-33.9, adult
CPT/HCPCS: 99211

== ENCOUNTER → 2020-01-02 | Outpatient (CLI) | payer OTHER, MEDICARE ==
--- NOTE | 2020-01-02 12:24 | P.PN ---
Subjective Progress Note Date: 01/02/20 THIS ENCOUNTER WAS PERFORMED A TELEMEDICINE VISIT VIA SECURE TWO-WAY VIDEO AND AUDIO TO MINIMIZE RISK AND TRANSMISSION OF COVID-19. This is a 49-year-old gentleman with history of crush injury to the left leg at work. The patient had multiple surgeries afterwards on the left leg. Right now he complains of pain mostly in the left foot with tingling and numbness in the toes and also numbness on the lateral aspect of the left leg beneath the knee level. Pain rated as 7/10, described as constant and dull, stabbing in heel of left foot, worse with walking, better with rest, medications. He continues to exercise. His pain has been well-controlled with a combination of methadone and [place]. He takes 30 mg of methadone a day and 10 mg of [place] three times a day as needed. With this dose he is able to do his daily activities .he failed to respond to Lyrica and Neurontin previously due to side effects. He does endorse constipation and is taking a daily stool softner. he has undergone pain procedures in the past including lumbar sympathetic block, with no long lasting and affect. He is not a candidate for spinal cord stimulation, as he has a history of chronic infections, and is on vancomycin periodically. Patient denies new-onset weakness, bowel/bladder incontinence, or any other signs or symptoms of cauda equina syndrome. There are no signs of acute intoxication, and no indications of medication diversion or overuse. In addition to above, 13-point review of systems is also negative for chest pain, shortness of breath, changes in vision, changes in hearing, new onset weakness, abdominal pain, diarrhea, extreme fatigue, malaise, fever, skin changes, homicidal or suicidal ideation, or bowel or bladder incontinence. Physical exam: Constitutional: Healthy appearing, well developed, alert, in no acute distress Psychiatric: Judgement and insight intact, alert and oriented Mood and Affect: mood normal, affect appropriate Head and Face: Inspection: normocephalic atraumatic, extraocular movement intact Respiratory: Breathing non-labored nondyspneic Skin: Head and Neck: skin with no lesions or rash Gait: able to ambulate without assistance, walks with a limp Neurologic: dysesthesia in left lower extremity per patient MSK: redness with scab on medial aspect of left knee Assessment: Left lower extremity complex regional pain syndrome type I Opioid dependence Obesity Plan: 1. Opioid agreement: Signed with the patient and is on file 2. Procedures: None 3. Medications: the patient's written for methadone 10 mg 3 times a day #90 and [place] 10/325 mg 3 times a day #90. Both with one refill. 4. Disposition: Return to clinic in 8 weeks 5. Maps were reviewed and were appropriate. EKG done on 09/18/2019 shows QTC of 398ms.
== END | disposition home or self-care (01) ==
LOC: PNWHC3 07:19
PROVIDERS: ATTEND Anesthesiology
DX: Z53.9 Procedure and treatment not carried out, unspecified reason (principal)

== ENCOUNTER → 2020-02-27 | Outpatient (CLI) | payer MEDICARE, OTHER ==
[2020-02-27 13:09] VITALS: BP 174/97; PULSE 94; RESP 16
--- NOTE | 2020-02-28 07:28 | P.PAINPG ---
Subjective Progress Note Date: 02/27/20 This is a 49-year-old gentleman with history of crush injury to the left leg at work. The patient had multiple surgeries afterwards on the left leg. Right now he complains of pain mostly in the left foot with tingling and numbness in the toes and also numbness on the lateral aspect of the left leg beneath the knee level. Pain rated as 5-8/10, described as constant and dull, radiating, worse with walking, better with rest, medications. His pain has been managed with a combination of methadone and [place]. He takes 30 mg of methadone a day and 10 mg of [place] three times a day as needed. He thinks he was getting better benefit from [place] early on, the effects seem to have worn off. He failed to respond to Lyrica and Neurontin previously due to side effects. He does endorse constipation and is taking a daily stool softner. he has undergone pain procedures in the past including lumbar sympathetic block, with no long lasting benefit. He is not a candidate for spinal cord stimulation, as he has a history of chronic infections, and is on vancomycin periodically. Patient denies new-onset weakness, bowel/bladder incontinence, or any other signs or symptoms of cauda equina syndrome. There are no signs of acute intoxication, and no indications of medication diversion or overuse. In addition to above, 13-point review of systems is also negative for chest pain, shortness of breath, changes in vision, changes in hearing, new onset weakness, abdominal pain, diarrhea, extreme fatigue, malaise, fever, skin changes, homicidal or suicidal ideation, or bowel or bladder incontinence. Physical exam: Vitals: Reviewed in EMR GENERAL: Well appearing, in no acute distress, obese PSYCH: Mood and affect is appropriate. Awake, alert, and oriented SKIN: Skin color, texture, turgor normal, no rashes or lesions in upper extremities HEENT: Normocephalic, atraumatic. EOM intact RESP: Respirations are unlabored, no audible wheezing GI: Abdomen non-distended MUSCULOSKELETAL: Left lower extremity discoloration and swelling, surgical scars well-healed, red papular rash visible in bilateral lower extremities, at the level of [place]. Varicosities noted in bilateral lower legs. Extremities: Limited range of motion in left ankle Gait: Gait is slow, antalgic, he walks with a cane NEUR: Cranial nerves are grossly intact Assessment: Left lower extremity complex regional pain syndrome type I Opioid dependence Obesity Plan: 1. Opioid agreement: Signed with the patient and is on file 2. Procedures: None 3. Medications: He is interested in opioid rotation. I switched him from [place] 10/325 3 times a day to Percocet 10/325 3 times a day, 90 tablets with one refill. If he does not respond to this or develops side effects, we discussed reverting to [place]. He is amenable to this plan. I also filled methadone 10 mg 3 times a day #90 with one refill. 4. Disposition: Return to clinic in 8 weeks 5. Maps were reviewed and were appropriate. EKG done on 09/18/2019 shows QTC of 398ms. urine drug screen sent today. 6. I advised him to wear compression stockings on right lower extremity for varicosities PQRS Measure Charge Sheet Measure #130: Documentation of Current Meds in Medical Chart: Patient's medications documented in chart Measure #226: Tobacco Use: Screen & Cessation Intervention: Pt not a tobacco user Measure #111: Pneumonia Vaccination: Pneumococcal vaccine NOT administered or previously given Measure #47: Advance Care Plan: Advance care planning discussed & documented, pt chose/unable to give Measure #412: Opioid Treatment Agreement: Documented signed opioid trtmnt agreemnt min once during opioid trtmnt Measure #408: Opioid Therapy Follow-up Evaluation: Patient had f/u eval minimum every 3 months during opioid therapy Measure #317: Preventitive Care & Scrn High Bld Press & F/U: Pre-hypertensive or hypertensive BP documented, pt will f/u with PCP Measure #128: Body Mass Index (BMI) Screening & Follow-up: BMI documented ABOVE normal parameters - f/u documented Measure #131: Pain Assessment & Follow-up: Pain positive & plan documented, Follow-up scheduled Measure #431: Unhealthy Alcohol Use Preventative Care & Scrn: Patient not identified as an unhealthy alcohol user PQRS Narrative: Smoking Status Never smoker Narcotic Agreement Date Signed 10/09/18 Pain Intensity [Left Lower Leg 8 ] Hx Alcohol Use (MH) No Home Medications: Ambulatory Orders HYDROcodone/APAP 10-325MG [[place] 10-325] 1 tab PO Q8HR PRN 30 Days #90 tab 01/02/20 Lidocaine 5% Patch [Lidoderm] 1 patch TOPICAL DAILY PRN 02/25/20 Docusate [Colace] 100 mg PO DAILY PRN #30 cap 02/27/20 Methadone [Dolophine] 10 mg PO Q8H PRN 30 Days #90 tab 02/27/20 Methadone [Dolophine] 10 mg PO Q8HR PRN 30 Days #90 tab 02/27/20 oxyCODONE-APAP 10-325MG [Percocet 10-325 mg] 1 tab PO Q8HR PRN #90 tab 02/27/20 oxyCODONE-APAP 10-325MG [Percocet 10-325 mg] 1 tab PO Q8HR PRN 30 Days #90 tab 02/27/20 Controlled Substance Measures - Controlled Substance Measures Is patient prescribed a controlled substance at discharge?: Yes When asked, does pt state using other controlled substances?: No If prescribed controlled substance>3 days was MAPS reviewed?: Yes If Rx opioid, was Start Talking consent form obtained?: Yes If opioid is for acute pain is fill amount 7 days or less?: No Was information provided regarding opioid addiction?: Yes
== END | disposition home or self-care (01) ==
LOC: PNWHC3 12:34
PROVIDERS: ATTEND Anesthesiology
DX: G90.522 Complex regional pain syndrome I of left lower limb (principal); F19.20 Other psychoactive substance dependence, uncomplicated; E66.9 Obesity, unspecified; Z79.891 Long term (current) use of opiate analgesic; Z79.899 Other long term (current) drug therapy
CPT/HCPCS: 80307; 99211; G0482

== ENCOUNTER → 2020-04-23 | Outpatient (CLI) | payer MEDICARE, OTHER ==
[2020-04-23 13:15] VITALS: BP 151/98; PULSE 67; RESP 20; TEMP 98.6
--- NOTE | 2020-04-23 13:34 | P.PN ---
Subjective Progress Note Date: 04/23/20 This is a 49-year-old gentleman with history of complex regional pain syndrome in the left lower extremity status post work injury. The patient has enlarged muscular left calf with malformation due to his work injury. He feels allodynia from the left ankle down to the toes. He has been using methadone 30 mg a day and recently was switched to Percocet from [place] 10 mg 3 times a day. The patient's pain is under control. His last EKG showed a corrected QTc interval of less than 400 ms. Patient denies new-onset weakness, bowel/bladder incontinence, or any other signs or symptoms of cauda equina syndrome. There are no signs of acute intoxication, and no indications of medication diversion or overuse. In addition to above, 13-point review of systems is also negative for chest pain, shortness of breath, changes in vision, changes in hearing, new onset weak ness, abdominal pain, diarrhea, extreme fatigue, malaise, fever, skin changes, homicidal or suicidal ideation, or bowel or bladder incontinence. Vital Signs: Reviewed in EMR Gen: AAOx3, NAD HEENT: PERRLA,hearing grossly normal Pulm: resp unlabored Heart: Regular Neck: supple, trachea midline Neuro: CN II-XII grossly intact, Imaging: Reviewed in EMR/chart Assessment: Left lower extremity complex regional pain syndrome type I Opioid dependence Obesity Prediabetes Plan: 1. Explanation: Opioid and psychological risk scores were reviewed. Diagnoses, prognoses, and multiple treatment options including but not limited to physical therapy, interventional therapies, adjuvant medical therapies, narcotic medication therapies, and surgery were discussed with the patient and all que stions were answered to the patient's satisfaction. 2. Opioid agreement: Signed with the patient and the patient is warned not to use opioids while driving or before driving and not to combine opioids with benzodiazepines or alcohol. 3. Counseling: The patient was counseled extensively on SMOKING CESSATION, BODY MASS INDEX, EXERCISE. Specifically, the patient was instructed regarding the importance of smoking cessation, obesity, and exercise in the context of both chronic pain and overall health. 4. Procedures: None 5. Consultations: None 6. Investigations: None 7. Medications: Continue Percocet 10 mg 3 times a day and methadone 10 mg 3 times a day 8. Disposition: Return to clinic in 8 weeks 9. Maps were reviewed and were appropriate. Controlled Substance Measures Is patient prescribed a controlled substance at discharge?: Yes When asked, does pt state using other controlled substances?: No If prescribed controlled substance>3 days was MAPS reviewed?: Yes If Rx opioid, was Start Talking consent form obtained?: Yes If opioid is for acute pain is fill amount 7 days or less?: No Was information provided regarding opioid addiction?: Yes Objective - Vital Signs Vital signs: Vital Signs Temp 98.6 F 04/23/20 13:08 Pulse 67 04/23/20 13:08 Resp 20 04/23/20 13:08 BP 151/98 04/23/20 13:08 Pulse Ox 98 04/23/20 13:08
== END | disposition home or self-care (01) ==
LOC: PNWHC3 12:45
PROVIDERS: ATTEND Anesthesiology
DX: G90.522 Complex regional pain syndrome I of left lower limb (principal); E66.9 Obesity, unspecified; F11.20 Opioid dependence, uncomplicated; R73.03 Prediabetes
CPT/HCPCS: 99211

== ENCOUNTER → 2020-06-30 | Outpatient (CLI) | payer OTHER ==
[2020-06-30 08:48] VITALS: BP 165/103; PULSE 81; RESP 16; TEMP 98
--- NOTE | 2020-06-30 09:14 | P.PN ---
Subjective Progress Note Date: 06/30/20 This is a follow-up visit for this 49 years old male with a chronic history of severe left lower extremity pain,he is Diagnosed with complex regional pain syndrome type I left lower extremity,patient had multiple surgical interventions on his left lower extremity we have done multiple pain intervention is procedure, and patient with only short-term benefit from it, and he is currently on pain medication methadone 10 mg 3 times a day, percocet 10/325 every 8 hours when necessary, he denies any side effects of the medication he denies any excessive drowsiness or sleepiness, he reported that he used to have a better benefit from the [place] 10/325 was giving to him before and he is wondering if we can put him back on [place] instead of the Percocet ,he tried Neurontin and Lyrica in the past, and he had side effects from both of them, currently is complaining of some pounding pain in his left lower extremity, he denies any fever he denies any discharge Objective - Vital Signs Vital signs: Vital Signs Temp 98 F 06/30/20 08:36 Pulse 81 06/30/20 08:36 Resp 16 06/30/20 08:36 BP 165/103 06/30/20 08:36 Pulse Ox 97 06/30/20 08:36 Intake & Output 06/29/20 06/30/20 06/30/20 18:59 06:59 18:59 Weight 140.16 kg - Exam Physical Examinations : -Constitutiona : Cooperative , not in acute distress . -HEENT nech : supple , no Lymphadenopathy , normal thyroid size . eyes : no ptosis , no icterus, no photophobia . ENT : normal of hearing , normal oropharynx , no Thrush . - neurologic : Cranial nerve II to XII intact , no focal neurological deffecit . -psychatric : alert , oriented X 3 , appropriate affect , intact judgment and insight . -Lymphatic : no Lymphadenopathy . - musculoskeltal : Left lower extremity discoloration and swelling, positive allodynia left lower extremity below the knee area Assessment and Plan Plan: Assessment and plan=1-complex regional pain syndrome type I left lower extremity. Patient had no benefit from interventional pain management, 2-chronic and current use of high-risk medication specifically opiate, patient currently on methadone 10 mg 3 times a day, discontinue Percocet. Will start patient on [place] 10/325 every 8 hours dispense 90 with 1 refill Patient advised to use ibuprofen 200 mg 4 tablet 3 times a day (over the counter ) MAPS reviewed and it was ok PQRS Measure Charge Sheet Measure #130: Documentation of Current Meds in Medical Chart: Patient's medications documented in chart Measure #226: Tobacco Use: Screen & Cessation Intervention: Pt not a tobacco user Measure #111: Pneumonia Vaccination: Pneumococcal vaccine NOT administered or previously given Measure #47: Advance Care Plan: Advance care planning discussed & documented, pt chose/unable to give Measure #412: Opioid Treatment Agreement: Documented signed opioid trtmnt agreemnt min once during opioid trtmnt Measure #408: Opioid Therapy Follow-up Evaluation: Patient had f/u eval minimum every 3 months during opioid therapy Measure #317: Preventitive Care & Scrn High Bld Press & F/U: Pre-hypertensive or hypertensive BP documented, pt will f/u with PCP Measure #128: Body Mass Index (BMI) Screening & Follow-up: BMI documented ABOVE normal parameters - f/u documented Measure #131: Pain Assessment & Follow-up: Pain positive & plan documented, Follow-up scheduled Measure #431: Unhealthy Alcohol Use Preventative Care & Scrn: Patient not identified as an unhealthy alcohol user PQRS Narrative: Time with Patient: Less than 30
== END | disposition home or self-care (01) ==
LOC: PNWHC3 08:25
PROVIDERS: ATTEND Specialist
DX: G90.522 Complex regional pain syndrome I of left lower limb (principal); Z79.899 Other long term (current) drug therapy
CPT/HCPCS: 99211

== ENCOUNTER → 2020-08-25 | Outpatient (CLI) | payer MEDICARE, OTHER ==
[2020-08-25 13:42] VITALS: BP 180/112; PULSE 99; RESP 18; TEMP 97.9
--- NOTE | 2020-08-25 14:15 | P.PN ---
Progress Note - Text Progress Note Date: 08/25/20 Patient returns for follow-up visit and evaluation for chronic left lower pain. Injury occurred over 13 years ago in a work-related incident. Sustained severe injury to his left lower extremity resulting in 20+ surgeries. He's been on his chronic pain regimen for over 10 years. It provides him with relief, ability to perform ADLs and care for his kids. He denies any negative side effects from the medication with the exception of fatigue. He also has complaints of short- term memory loss that is being evaluated by neurologist. Otherwise patient is doing well. Past medical, social, surgical histories reviewed and unchanged from previous visit. In addition to above, 13-point review of systems is also negative for chest pain, shortness of breath, changes in vision, changes in hearing, new onset weakness, abdominal pain, diarrhea, extreme fatigue, malaise, fever, skin changes, homicidal or suicidal ideation, or bowel or bladder incontinence. Gen: WDWN, AAOx3, NAD, uses cane HEENT: NCAT, EOMI, hearing grossly normal Pulm: resp unlabored Abd: soft, NT, ND Neck: supple, trachea midline Lower extremity: +allodynia, + hyperalgesia along LLE worst in ankle; significant deformity in LLE with swelling. Decreased ROM dorsiflexion/plantarflexion and decreased strength; decreased ROM and strength in knee flexion/extension Neuro: CN II-XII grossly intact, muscle strength lower extremities 3+/5 LLE in ankle, 5/5 RLE ankle Assessment: 1. complex regional pain syndrome type II left lower extremity 2. chronic pain syndrome 3. morbid obesity Plan: 1. Explanation: Opioid and psychological risk scores were reviewed. Diagnoses, prognoses, and multiple treatment options including but not limited to physical therapy, interventional therapies, adjuvant medical therapies, narcotic medication therapies, and surgery were discussed with the patient and all questions were answered to the patient's satisfaction. 2. Opioid agreement: Patient signed narcotic agreement previously, and was orally counseled to not overuse, abuse, divert, or cell medications, and to take them as prescribed by only 1 healthcare provider. The patient was also counseled to take medications as prescribed by only 1 healthcare provider and to store opioid medications in the safe and preferably locked location. Patient was also counseled against driving while using narcotic medications and also to not use alcohol or any illicit or recreational drugs. The patient verbalized understanding that lack of compliance with any of the above and likely result in failure to renew narcotic prescriptions, possible discharge from the clinic, and possible legal ramifications thereafter if indicated. 3. Counseling: The patient was counseled extensively on BODY MASS INDEX, EXERCISE. Specifically, the patient was instructed regarding the importance of obesity and exercise in the context of both chronic pain and overall health. 4. Procedures: None 5. Consultations: None 6. Investigations: Maps was queried and appropriate with patient's history. UDS will be done on this visit (08/25/2020) please follow-up with final results in 2 months. 7. Medications: Methadone 10 mg #84 with one refill, [place] decreased to 10/325 #84 with one refill
== END | disposition home or self-care (01) ==
LOC: PNWHC3 13:27
PROVIDERS: ATTEND Anesthesiology
DX: G89.4 Chronic pain syndrome (principal); E66.01 Morbid (severe) obesity due to excess calories; G57.72 Causalgia of left lower limb; Z79.891 Long term (current) use of opiate analgesic
CPT/HCPCS: 80307; 99212; G0482

== ENCOUNTER → 2020-10-20 | Outpatient (CLI) | payer OTHER ==
[2020-10-20 13:56] VITALS: BP 164/115; PULSE 95; RESP 16; TEMP 98.6
--- NOTE | 2020-10-20 14:42 | P.PAINPG ---
Subjective Progress Note Date: 10/20/20 Principal diagnosis: Left leg pain Mr. Ash is a 50-year-old pleasant male came to the [facility] pain management clinic for prescription refill. Patient has ongoing chronic left leg pain secondary to crush injury many 30 years ago. Patient is taking current pain medications for more than 10 years. With the help of pain medication he can able to perform his activities of daily living. Pain medications helping him in relieving his pain. Denied any side effects with the pain medications. He rated his pain 6 out of 10 in severity. He describes his pain is aching, throbbing type of pain sometimes burning. Activities making his pain worse. Resting, and pain medications helping his pain. Sometimes is experiencing constipation with the pain medications but he is managing with MiraLAX, and senna. He denied any problems with sleeping. There are no signs of narcotic diversion, misuse, overdose. No new onset of weakness, bowel/bladder incontinence/red flag symptoms. 13 point review of symptoms negative except as mentioned in the history of present illness. Objective - Vital Signs Vital signs: Vital Signs Temp 98.6 F 10/20/20 13:43 Pulse 95 10/20/20 13:43 Resp 16 10/20/20 13:43 BP 164/115 10/20/20 13:43 Pulse Ox 96 10/20/20 13:43 - Exam General: well-developed, well-nourished, no acute distress. HEENT: Normocephalic, atraumatic. Neurologic: No noticeable focal neurological deficits. Psychiatric: Appropriate mood and affect. Musculoskeletal: Upper extremity : Normal strength and range of motion, and sensation grossly intact.. Lower extremity: Normal strength and decreased range of motion secondary to pain. Left lower extremity swelling, hyperalgesia. Assessment and Plan Assessment: Left lower extremity complex regional pain syndrome type II Chronic pain syndrome Morbid obesity Plan: 1. Opioid and psychological risk tools and scores were reviewed. Diagnoses, prognoses, and multiple treatment options including but not limited to physical therapy, interventional therapies, adjunct medical therapies were discussed with the patient and all questions were answered to the patients satisfaction. 2. Opioid agreement: Patient was discussed regarding the medication side effects, and complications associated with narcotic use. Also counsels against driving while using narcotic medications, and also against using any alcohol or illicit or recreational drugs in conjunction with opioids. Patient understood the consequences. Patient has signed narcotic agreement, and was again asked to re-read this document and will be given a copy to take home if requested. This document outlines the policies of the [facility]. It specifically counsels the patient to not misuse, overuse, abuse, divert, or sell medications, and to take them as prescribed by only one healthcare provider and store the medications in a safe and preferably locked location. This document also counsels against driving while using narcotic medications and also against using any alcohol or illicit or recreational drugs in conjunction with opioids. The patient verbalized understanding to staff that lack of compliance with any of the above will likely result in failure to renew narcotic prescriptions, possible discharge from the clinic, and possible legal ramifications thereafter. 3. The patient was counseled on importance of regular exercise and other relaxation / meditation techniques in controlling chronic pain as well as in terms of overall well-being. Patient also counseled regarding weight control roll in controlling chronic pain and overall other health issues, by losing weight, altering diet habits, and regular exercise, and eliminating/minimizing inflammation worsening foods. The patient was given information regarding intermittent fasting for weight loss and, overall health. 4. Consultations: Continue physical therapy exercises at home 5. Investigations: MAPS- appropriate , and urine drug test-done today, reviewed her previous reports. 6. Diagnostic studies: None. 7. Interventional procedures: Patient appears 8. Medications: #1 methadone 10 mg by mouth every 8 hours dispense 90 with no refill \ #2 [place] 10/325 by mouth every 8 hours as needed dispense 90 with no refills #3 Lidoderm patch 5% applied over the affected area every 12 hours on and every 12 hours off dispense 30 with no refills #4 naloxone 4 mg intranasal for respiratory depression dispense #2 9. Morphine milligram equivalent (MME) doses: 103 10. Durable Medical Equipment (DME) : TENS units. 11. Disposition: Scheduled for follow-up in 4 weeks duration. I have spent greater than 30 minutes with this patient. Including but not limited to: [id number] time, on physical examination, electronic medical record review, counseling, and documentation The QRS measure charge sheet done in separate paper note. PQRS Measure Charge Sheet PQRS Narrative: Smoking Status Never smoker Narcotic Agreement Date Signed 02/27/20 Blood Pressure 164/115 Pain Intensity [Left Lower Leg 6 ] Scale Used Numeric (1 - 10) Hx Alcohol Use (MH) No Home Medications: Ambulatory Orders Docusate [Colace] 100 mg PO DAILY PRN #30 cap 02/27/20 HYDROcodone/APAP 10-325MG [[place] 10-325] 1 tab PO Q8HR PRN 30 Days #90 tab 06/30/20 Methadone [Dolophine] 10 mg PO Q8HR PRN 30 Days #90 tab 06/30/20 metFORMIN HCL 500 mg PO BID 06/30/20 lisinopriL [Zestril] 10 mg PO BID 10/17/20 Naloxone HCl [Narcan] 4 mg INTRANASAL DIRECTED PRN 10/20/20 Controlled Substance Measures - Controlled Substance Measures Is patient prescribed a controlled substance at discharge?: Yes When asked, does pt state using other controlled substances?: No If prescribed controlled substance>3 days was MAPS reviewed?: Yes If Rx opioid, was Start Talking consent form obtained?: Yes If opioid is for acute pain is fill amount 7 days or less?: Yes Was information provided regarding opioid addiction?: Yes
== END ==
LOC: PNWHC3 13:24
DX: G57.72 Causalgia of left lower limb (principal); G89.4 Chronic pain syndrome; E66.01 Morbid (severe) obesity due to excess calories
CPT/HCPCS: 80307; 99212; G0482; 99211

== ENCOUNTER → 2020-11-17 | Outpatient (CLI) | payer MEDICARE, OTHER ==
--- NOTE | 2020-11-17 13:07 | P.PN ---
Subjective Progress Note Date: 11/17/20 This is a follow-up visit for this 50 years old male with a chronic history of severe left lower extremity pain,he is Diagnosed with, complex regional pain syndrome type I left lower extremity,patient had multiple surgical interventions on his left lower extremity,and previously we have done multiple pain intervention procedures, and patient with only short-term benefit from it, and he is currently on pain medication methadone 10 mg 3 times a day, Nor[place]10/325 every 8 hours when necessary, he denies any side effects of the medication ,he denies any excessive drowsiness or sleepiness,he tried Neurontin and Lyrica in the past, and he had side effects from both of them , he denies any fever Physical Examinations : -Constitutiona : Cooperative , not in acute distress . -HEENT nech : supple , no Lymphadenopathy , normal thyroid size . eyes : no ptosis , no icterus, no photophobia . ENT : normal of hearing , normal oropharynx , no Thrush . - neurologic : Cranial nerve II to XII intact , no focal neurological deffecit . -psychatric : alert , oriented X 3 , appropriate affect , intact judgment and insight . -Lymphatic : no Lymphadenopathy . - musculoskeltal : Left lower extremity discoloration and swelling, positive allodynia left lower extremity below the knee area Assessment and Plan Plan: Assessment and plan=1-complex regional pain syndrome type I left lower extremity. Patient had no benefit from interventional pain management, 2-chronic and current use of high-risk medication specifically opiate, patient currently on methadone 10 mg 3 times a day, [place] 10/325 every 8 hours dispense 90 with 1 refill . Colace 100 mg twice a day Patient already had a prescription for Lovenox and 4 mg intranasally when necessary MAPS reviewed and it was ok PQRS Measure Charge Sheet Measure #130: Documentation of Current Meds in Medical Chart: Patient's medications documented in chart Measure #226: Tobacco Use: Screen & Cessation Intervention: Pt not a tobacco user Measure #111: Pneumonia Vaccination: Pneumococcal vaccine NOT administered or pr eviously given Measure #47: Advance Care Plan: Advance care planning discussed & documented, pt chose/unable to give Measure #412: Opioid Treatment Agreement: Documented signed opioid trtmnt agreemnt min once during opioid trtmnt Measure #408: Opioid Therapy Follow-up Evaluation: Patient had f/u eval minimum every 3 months during opioid therapy Measure #317: Preventitive Care & Scrn High Bld Press & F/U: Pre-hypertensive or hypertensive BP documented, pt will f/u with PCP Measure #128: Body Mass Index (BMI) Screening & Follow-up: BMI documented ABOVE normal parameters - f/u documented Measure #131: Pain Assessment & Follow-up: Pain positive & plan documented, Follow-up scheduled Measure #431: Unhealthy Alcohol Use Preventative Care & Scrn: Objective - Vital Signs Vital signs: Vital Signs Temp 97.9 F 11/17/20 12:46 Pulse 91 11/17/20 12:46 Resp 16 11/17/20 12:46 BP 179/110 11/17/20 12:46 Pulse Ox 97 11/17/20 12:46
== END ==
CPT/HCPCS: 99211

== ENCOUNTER → 2021-01-12 | Outpatient (CLI) | payer OTHER ==
[2021-01-12 12:45] VITALS: BP 138/95; PULSE 100; RESP 16; TEMP 97.8
--- NOTE | 2021-01-12 13:01 | P.PN ---
Subjective Progress Note Date: 01/12/21 This is a follow-up visit for this 50 years old male with a chronic history of severe left lower extremity pain,he is Diagnosed with complex regional pain syndrome type I left lower extremity,patient had multiple surgical interventions on his left lower extremity,and previously we have done multiple pain intervention procedures, and patient with only short-term benefit from it, and he is currently on pain medication methadone 10 mg 3 times a day, Norco10/325 every 8 hours when necessary, he denies any side effects of the medication ,he denies any excessive drowsiness or sleepiness,he tried Neurontin and Lyrica in the past, and he had side effects from both of them , he denies any fever , currently patient reported that he had increased intensity of the pain and he has difficulty walking secondary to the pain in his left lower extremity, he has difficulty sleeping at night because of the intensity of the pain, patient uses Colace when necessary for constipation Physical Examinations : -Constitutiona : Cooperative , not in acute distress . -HEENT nech : supple , no Lymphadenopathy , normal thyroid size . eyes : no ptosis , no icterus, no photophobia . ENT : normal of hearing , normal oropharynx , no Thrush . - neurologic : Cranial nerve II to XII intact , no focal neurological deffecit . -psychatric : alert , oriented X 3 , appropriate affect , intact judgment and insight . -Lymphatic : no Lymphadenopathy . - musculoskeltal : Left lower extremity discoloration and swelling, positive allodynia left lower extremity below the knee area Assessment and plan=1-complex regional pain syndrome type I left lower extremity. Patient had no benefit from interventional pain management, 2-chronic and current use of high-risk medication specifically opiate, patient currently on methadone 10 mg 3 times a day, [place] 10/325 every 8 hours dispense 90 with 1 refill . Patient could benefit from amitriptyline 25 mg daily at bedtime to help sleep, and as an adjuvant for pain Colace 100 mg twice a day when necessary for constipation Patient already had a prescription for naloxone 4 mg intranasally when necessary MAPS reviewed and it was ok PQRS Measure Charge Sheet Measure #130: Documentation of Current Meds in Medical Chart: Patient's medications documented in chart Measure #226: Tobacco Use: Screen & Cessation Intervention: Pt not a tobacco user Measure #111: Pneumonia Vaccination: Pneumococcal vaccine NOT administered or previously given Measure #47: Advance Care Plan: Advance care planning discussed & documented, pt chose/unable to give Measure #412: Opioid Treatment Agreement: Documented signed opioid trtmnt agreemnt min once during opioid trtmnt Measure #408: Opioid Therapy Follow-up Evaluation: Patient had f/u eval minimum every 3 months during opioid therapy Measure #317: Preventitive Care & Scrn High Bld Press & F/U: Pre-hypertensive or hypertensive BP documented, pt will f/u with PCP Measure #128: Body Mass Index (BMI) Screening & Follow-up: BMI documented ABOVE normal parameters - f/u documented Measure #131: Pain Assessment & Follow-up: Pain positive & plan documented, Fol low-up scheduled Measure #431: Unhealthy Alcohol Use Preventative Care & Scrn: Objective - Vital Signs Vital signs: Vital Signs Temp 97.8 F 01/12/21 12:44 Pulse 100 01/12/21 12:44 Resp 16 01/12/21 12:44 BP 138/95 01/12/21 12:44 Pulse Ox 96 01/12/21 12:44
== END ==
LOC: PNWHC3 12:31
PROVIDERS: ATTEND Specialist
DX: G90.522 Complex regional pain syndrome I of left lower limb (principal); F11.90 Opioid use, unspecified, uncomplicated; Z88.4 Allergy status to anesthetic agent; Z88.8 Allergy status to other drugs, medicaments and biological substances
CPT/HCPCS: 99211

== ENCOUNTER → 2021-03-09 | Outpatient (CLI) | payer MEDICARE ==
[2021-03-09 12:56] VITALS: BP 163/93; PULSE 85; RESP 18; TEMP 98.1
--- NOTE | 2021-03-09 13:06 | P.PN ---
Subjective Progress Note Date: 03/09/21 This is a follow-up visit for this 50 years old male with a chronic history of severe left lower extremity pain,he is Diagnosed with complex regional pain syndrome type I left lower extremity,patient had multiple surgical interventions on his left lower extremity,and previously we have done multiple pain intervention procedures, and patient with only short-term benefit from it, and he is currently on pain medication, methadone 10 mg 3 times a day, Norco10/325 every 8 hours when necessary, he denies any side effects of the medication ,he denies any excessive drowsiness or sleepiness,he tried Neurontin and Lyrica in the past, and he had side effects from both of them , last visit we started him on amitriptyline and adjuvant for pain and also to help him for sleep tonight because he has difficulty sleeping , he reported that he had side effects from amitriptyline he had hallucination, and very bad dream for this reason I will discontinue amitriptyline he denies any fever , currently patient reported that he had increased intensity of the pain and he has difficulty walking secondary to the pain in his left lower extremity, patient uses Colace when necessary for constipation Physical Examinations : -Constitutiona : Cooperative , not in acute distress . -HEENT nech : supple , no Lymphadenopathy , normal thyroid size . eyes : no ptosis , no icterus, no photophobia . ENT : normal of hearing , normal oropharynx , no Thrush . - neurologic : Cranial nerve II to XII intact , no focal neurological deffecit . -psychatric : alert , oriented X 3 , appropriate affect , intact judgment and insight . -Lymphatic : no Lymphadenopathy . - musculoskeltal : Left lower extremity discoloration and swelling, positive allodynia left lower extremity below the knee area Assessment and plan=1-complex regional pain syndrome type I left lower extremity. Patient had no benefit from interventional pain management, 2-chronic and current use of high-risk medication specifically opiate, patient currently on methadone 10 mg 3 times a day, [place] 10/325 every 8 hours dispense 90 with 1 refill . Discontinue amitriptyline (she had hallucination and bad dreams as a side effect of amitriptyline) Colace 100 mg twice a day when necessary for constipation Patient already had a prescription for naloxone 4 mg intranasally when necessary MAPS reviewed and it was ok PQRS Measure Charge Sheet Measure #130: Documentation of Current Meds in Medical Chart: Patient's medications documented in chart Measure #226: Tobacco Use: Screen & Cessation Intervention: Pt not a tobacco user Measure #111: Pneumonia Vaccination: Pneumococcal vaccine NOT administered or previously given Measure #47: Advance Care Plan: Advance care planning discussed & documented, pt chose/unable to give Measure #412: Opioid Treatment Agreement: Documented signed opioid trtmnt agreemnt min once during opioid trtmnt Measure #408: Opioid Therapy Follow-up Evaluation: Patient had f/u eval minimum every 3 months during opioid therapy Measure #317: Preventitive Care & Scrn High Bld Press & F/U: Pre-hypertensive or hypertensive BP documented, pt will f/u with PCP Measure #128: Body Mass Index (BMI) Screening & Follow-up: BMI documented ABOVE normal parameters - f/u documented Measure #131: Pain Assessment & Follow-up: Pain positive & plan documented, Follow-up scheduled Measure #431: Unhealthy Alcohol Use Preventative Care & Scrn: Objective - Vital Signs Vital signs: Vital Signs Temp 98.1 F 03/09/21 12:51 Pulse 85 03/09/21 12:51 Resp 18 03/09/21 12:51 BP 163/93 03/09/21 12:51 Pulse Ox 96 03/09/21 12:51
== END ==
LOC: PNWHC3 12:32
PROVIDERS: ATTEND Specialist
DX: G90.522 Complex regional pain syndrome I of left lower limb (principal); Z79.891 Long term (current) use of opiate analgesic; Z88.4 Allergy status to anesthetic agent; Z88.8 Allergy status to other drugs, medicaments and biological substances
CPT/HCPCS: 99211

== ENCOUNTER → 2021-05-04 | Outpatient (CLI) | payer MEDICARE, OTHER ==
[2021-05-04 12:55] VITALS: BP 159/102; PULSE 67; RESP 18; TEMP 97
--- NOTE | 2021-05-04 13:09 | P.PN ---
Subjective Progress Note Date: 05/04/21 This is a follow-up visit for this 50 years old male with a chronic history of severe left lower extremity pain,he is Diagnosed with complex regional pain syndrome type I left lower extremity,patient had multiple surgical interventions ,on his left lower extremity,and previously we have done multiple pain intervention procedures, and patient with only short-term benefit from it, and he is currently on pain medication, methadone 10 mg 3 times a day, Norco10/325 every 8 hours when necessary, he denies any side effects of the medication ,he denies any excessive drowsiness or sleepiness,he tried Neurontin and Lyrica ,amitriptylin , and he had side effects from them , currently patient reported that he had left foot pain ,and ingroin toe nail ,left foot Physical Examinations : -Constitutiona : Cooperative , not in acute distress . -HEENT nech : supple , no Lymphadenopathy , normal thyroid size . eyes : no ptosis , no icterus, no photophobia . ENT : normal of hearing , normal oropharynx , no Thrush . - neurologic : Cranial nerve II to XII intact , no focal neurological deffecit . -psychatric : alert , oriented X 3 , appropriate affect , intact judgment and insight . -Lymphatic : no Lymphadenopathy . - musculoskeltal : Left lower extremity discoloration and swelling, positive allodynia left lower extremity below the knee area Assessment and plan=1-complex regional pain syndrome type I left lower extremity. Patient had no benefit from interventional pain management, 2-chronic and current use of high-risk medication specifically opiate, patient currently on methadone 10 mg 3 times a day, [place] 10/325 every 8 hours dispense 90 with 1 refill . Colace 100 mg twice a day when necessary for constipation Patient already had a prescription for naloxone 4 mg intranasally when necessary MAPS reviewed and it was ok PQRS Measure Charge Sheet Measure #130: Documentation of Current Meds in Medical Chart: Patient's medications documented in chart Measure #226: Tobacco Use: Screen & Cessation Intervention: Pt not a tobacco user Measure #111: Pneumonia Vaccination: Pneumococcal vaccine NOT administered or previously given Measure #47: Advance Care Plan: Advance care planning discussed & documented, pt chose/unable to give Measure #412: Opioid Treatment Agreement: Documented signed opioid trtmnt agreemnt min once during opioid trtmnt Measure #408: Opioid Therapy Follow-up Evaluation: Patient had f/u eval minimum every 3 months during opioid therapy Measure #317: Preventitive Care & Scrn High Bld Press & F/U: Pre-hypertensive or hypertensive BP documented, pt will f/u with PCP Measure #128: Body Mass Index (BMI) Screening & Follow-up: BMI documented ABOVE normal parameters - f/u documented Measure #131: Pain Assessment & Follow-up: Pain positive & plan documented, Follow-up scheduled Measure #431: Unhealthy Alcohol Use Preventative Care & Scrn: Objective Objective - Vital Signs Vital signs: Vital Signs Temp 97.0 F L 05/04/21 12:45 Pulse 67 05/04/21 12:45 Resp 18 05/04/21 12:45 BP 159/102 05/04/21 12:45 Pulse Ox 100 05/04/21 12:45 Intake & Output 05/03/21 05/04/21 05/04/21 18:59 06:59 18:59 Weight 127.139 kg
== END ==
LOC: PNWHC3 12:31
PROVIDERS: ATTEND Specialist
DX: G90.522 Complex regional pain syndrome I of left lower limb (principal); Z79.891 Long term (current) use of opiate analgesic; Z88.4 Allergy status to anesthetic agent; Z88.8 Allergy status to other drugs, medicaments and biological substances
CPT/HCPCS: 99211

== ENCOUNTER 2021-06-14 18:49 | Emergency (ER) | payer MEDICARE ==
[2021-06-14] MEDS ORDERED: SODIUM CHLORIDE 0.9% 1,000 ML IV STA (20:41)
[2021-06-14] MEDS ORDERED: IBUPROFEN 600 MG TAB PO STA (20:41)
[2021-06-14] MEDS ORDERED: ONDANSETRON 4 MG/2 ML VIAL IVP STA (20:41)
[2021-06-14] MEDS ORDERED: ACETAMINOPHEN TAB 325 MG TAB PO STA (20:41)
[2021-06-14 21:31] LABS: Basophils % (A) 1 %; Eosinophils % (A) 0 %; HCT 41.4 % (39.0-53.0); Lymphocytes # (A) 0.6 k/uL (1.0-4.8); Lymphocytes % (A) 11 %; MCH 29.3 pg (25.0-35.0); MCHC 33.9 g/dL (31.0-37.0); MCV 86.2 fL (80.0-100.0); Mean Platelet Volume 7.8; Monocytes # (A) 0.3 k/uL (0-1.0); Monocytes % (A) 7 %; Neutrophils # (A) 4.2 k/uL (1.3-7.7); Neutrophils % (A) 80 %; Platelet Count 128 k/uL (150-450); RDW 12.9 % (11.5-15.5); WBC 5.2 k/uL (3.8-10.6)
[2021-06-14 21:38] LABS: Appearance,Urine Cloudy (Clear); Bacteria,Urine Rare /hpf; Bilirubin,Urine Negative (Negative); Blood,Urine Large (Negative); Budding Yeast,Urine Occasional /hpf; Color,Urine Yellow; Glucose,Urine (UA) 4+ (Negative); Ketones,Urine Negative (Negative); Leukocyte Esterase,Urine Negative (Negative); Mucus,Urine Few /hpf; Nitrite,Urine Negative (Negative); PH, Urine 5.5 (5.0-8.0); Protein,Urine 1+ (Negative); RBC,Urine 15 /hpf (0-5); Specific Gravity,Urine 1.025 (1.001-1.035); Squamous Epithelial Cell,Urine <1 /hpf (0-4); Urobilinogen,Urine <2.0 mg/dL (<2.0); WBC,Urine 2 /hpf (0-5)
[2021-06-14 21:51] LABS: ALT 26 U/L (4-49); AST 41 U/L (17-59); African American GFR (CKD) >90 (>60 ml/min/1.73 sqM); Albumin 4.2 g/dL (3.5-5.0); Alkaline Phosphatase 47 U/L (38-126); Amylase 84 U/L (30-110); Anion Gap 8 mmol/L; Blood Urea Nitrogen 16 mg/dL (9-20); Carbon Dioxide 24 mmol/L (22-30); Chloride 102 mmol/L (98-107); Glucose 142 mg/dL (74-99); Lipase 104 U/L (23-300); Non-African American GFR(CKD) 90 (>60 ml/min/1.73 sqM); Potassium 3.7 mmol/L (3.5-5.1); Sodium 134 mmol/L (137-145); Total Bilirubin 0.7 mg/dL (0.2-1.3); Total Protein 8.1 g/dL (6.3-8.2)
[2021-06-14 22:01] VITALS: BP 125/79; PULSE 85; RESP 18; TEMP 101.1
--- NOTE | 2021-06-14 22:59 | CT ---
EXAMINATION TYPE: CT abdomen pelvis w con DATE OF EXAM: 06/14/2021 COMPARISON: 08/14/2012 HISTORY: LLQ pain with fever and possible fall CT DLP: 2349.1 mGycm Automated exposure control for dose reduction was used. CONTRAST: Performed with IV Contrast, patient injected with 100 mL of Isovue 300. Lung bases are clear. There is no pleural effusion. Heart size is normal. There is no pericardial eff usion. Liver spleen stomach pancreas gallbladder appear normal. The bile ducts are not dilated. There is no adrenal mass. Kidneys show satisfactory contrast opacification. There is no hydronephrosi s. Delayed images show normal renal excretion. There are bilateral 1.5 cm renal cortical cysts. There is no retroperitoneal adenopathy. Bladder distends smoothly. There is no inguinal hernia. There is n o free fluid in the pelvis. There is no evidence of a pelvic mass. There are surgical clips at the cecum. There is a mild lumbar levoscoliosis. There is mild thoracic dextroscoliosis. There is multilevel mild spondylotic changes in the lumbar spine. Bony pelvis is intact. Hip joints a re intact. There is no mesenteric edema. There is no ascites or free air. There is no sign of a bowel obstructio n. IMPRESSION: No acute abnormality of the abdomen pelvis. No adverse change compared to old exam.
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
== END 2021-06-15 00:02 | disposition home or self-care (01) ==
LOC: EC 18:49
DX: N20.0 Calculus of kidney (principal); E11.9 Type 2 diabetes mellitus without complications; I10 Essential (primary) hypertension
CPT/HCPCS: 36415; 80053; 82150; 83690; 85025; 81001; 74177; 99284; 96374; 96361; J2405; Q9967

== ENCOUNTER 2021-06-21 11:15 | Inpatient (IN) | payer MEDICARE ==
[2021-06-21] MEDS ORDERED: SODIUM CHLORIDE 0.9% 1,000 ML IV STA (12:58)
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
[2021-06-21 14:05] LABS: ALT 25 U/L (4-49); AST 29 U/L (17-59); African American GFR (CKD) >90 (>60 ml/min/1.73 sqM); Alkaline Phosphatase 59 U/L (38-126); Anion Gap 12 mmol/L; Basophils % (A) 0 %; Blood Urea Nitrogen 19 mg/dL (9-20); Calcium 9.2 mg/dL (8.4-10.2); Carbon Dioxide 26 mmol/L (22-30); Chloride 100 mmol/L (98-107); Eosinophils # (A) 0.1 k/uL (0-0.7); Eosinophils % (A) 1 %; Glucose 193 mg/dL (74-99); HCT 41.1 % (39.0-53.0); HGB 14.1 gm/dL (13.0-17.5); Lymphocytes # (A) 0.8 k/uL (1.0-4.8); Lymphocytes % (A) 9 %; MCH 29.5 pg (25.0-35.0); MCHC 34.3 g/dL (31.0-37.0); MCV 86.1 fL (80.0-100.0); Magnesium 2.3 mg/dL (1.6-2.3); Mean Platelet Volume 7.7; Monocytes # (A) 0.5 k/uL (0-1.0); Monocytes % (A) 6 %; Neutrophils # (A) 7.1 k/uL (1.3-7.7); Neutrophils % (A) 82 %; Non-African American GFR(CKD) >90 (>60 ml/min/1.73 sqM); Platelet Count 212 k/uL (150-450); Potassium 3.8 mmol/L (3.5-5.1); RBC 4.77 m/uL (4.30-5.90); RDW 12.9 % (11.5-15.5); Sodium 138 mmol/L (137-145); Total Bilirubin 0.7 mg/dL (0.2-1.3); Total Protein 8.3 g/dL (6.3-8.2); WBC 8.6 k/uL (3.8-10.6)
[2021-06-21 14:09] LABS: INR 1.2 (<1.2); Partial Thromboplastin Time 23.2 sec (22.0-30.0); Prothrombin Time 12.1 sec (9.0-12.0)
[2021-06-21 14:17] LABS: Appearance,Urine Clear (Clear); Bacteria,Urine Rare /hpf; Bilirubin,Urine Negative (Negative); Blood,Urine Large (Negative); Budding Yeast,Urine Few /hpf; Color,Urine Yellow; Glucose,Urine (UA) 4+ (Negative); Ketones,Urine Negative (Negative); Leukocyte Esterase,Urine Negative (Negative); Mucus,Urine Rare /hpf; Nitrite,Urine Negative (Negative); PH, Urine 5.5 (5.0-8.0); Protein,Urine 1+ (Negative); RBC,Urine 110 /hpf (0-5); Specific Gravity,Urine 1.037 (1.001-1.035); Urobilinogen,Urine <2.0 mg/dL (<2.0); WBC,Urine 4 /hpf (0-5)
--- NOTE | 2021-06-21 14:24 | XR ---
EXAMINATION TYPE: XR chest 2V DATE OF EXAM: 06/21/2021 COMPARISON: Chest radiograph 04/14/2013 HISTORY: Fever TECHNIQUE: Frontal and lateral views of the chest are obtained. FINDINGS: There is no focal air space opacity, pleural effusion, or pneumothorax seen. The cardiac silhouette size is within normal limits. The osseous structures are intact. IMPRESSION: No acute cardiopulmonary process.
[2021-06-21] MEDS ORDERED: cefTRIAXone IN SWFI 1,000 MG/10 ML SYRINGE IVP STA (14:25)
[2021-06-21] MEDS ORDERED: MORPHINE SULFATE 4 MG/ML SYRINGE IVP STA (14:32)
[2021-06-21] MEDS ORDERED: LORazepam 2 MG/ML INJ IV STA (14:33)
[2021-06-21] MEDS ORDERED: HYDROmorphone 0.5 MG/0.5 ML SYRINGE IVP PRN (15:56)
[2021-06-21] MEDS ORDERED: LORazepam 2 MG/ML INJ IV PRN (15:56)
[2021-06-21] MEDS ORDERED: NALOXONE 0.4 MG/ML 1 ML VIAL IV PRN (15:56)
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
[2021-06-21] MEDS: ACETAMINOPHEN TAB 325 MG TAB PO PRN (18:12)
[2021-06-21] MEDS: METHADONE 10 MG TAB PO SCH ×2 (19:01→22:00)
[2021-06-21] MEDS: SODIUM CHLORIDE 0.9% 1,000 ML IV SCH (20:08)
[2021-06-21] MEDS: INSULIN ASPART (NovoLOG) 100 UNIT/ML VIAL SQ SCH ×2 (20:09→20:52)
[2021-06-21 20:35] LABS: Glucose,Whole Blood 183 mg/dL (75-99)
[2021-06-21] MEDS: HYDROcodone/APAP 10-325MG 1 EACH TAB PO PRN (20:35)
[2021-06-21] MEDS: IBUPROFEN 400 MG TAB PO PRN (20:36)
[2021-06-22] MEDS: IBUPROFEN 400 MG TAB PO PRN ×4 (04:36→22:48)
[2021-06-22] MEDS: HYDROcodone/APAP 10-325MG 1 EACH TAB PO PRN ×3 (04:37→21:27)
[2021-06-22] MEDS: SODIUM CHLORIDE 0.9% 1,000 ML IV SCH ×2 (05:42→21:28)
[2021-06-22 07:56] LABS: Glucose,Whole Blood 115 mg/dL (75-99)
[2021-06-22] MEDS: INSULIN ASPART (NovoLOG) 100 UNIT/ML VIAL SQ SCH ×4 (09:07→21:27)
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
[2021-06-22] MEDS: METHADONE 10 MG TAB PO SCH ×3 (09:13→22:48)
[2021-06-22] MEDS: amLODIPine 5 MG TAB PO SCH (09:14)
[2021-06-22] MEDS: lisinopriL 10 MG TAB PO SCH (09:14)
[2021-06-22] MEDS ORDERED: VANCOMYCIN IV PER PHARMACY 1 EACH MISC MISCELLANE PRN (09:56)
[2021-06-22] MEDS: IOPAMIDOL CONTRAST (ORAL USE) VIAL PO PRN ×2 (10:02→10:48)
[2021-06-22] MEDS ORDERED: VANCOMYCIN 2,000 MG in SODIUM CHLORIDE 0.9% 500 ML 500 ML IVPB ONE (10:30)
[2021-06-22 11:00] LABS: Glucose,Whole Blood 162 mg/dL (75-99)
[2021-06-22 12:40] LABS: Appearance,Urine Clear (Clear); Bilirubin,Urine Negative (Negative); Blood,Urine Large (Negative); Budding Yeast,Urine Rare /hpf; Color,Urine Yellow; Glucose,Urine (UA) 3+ (Negative); Ketones,Urine Negative (Negative); Leukocyte Esterase,Urine Negative (Negative); Mucus,Urine Rare /hpf; Nitrite,Urine Negative (Negative); Protein,Urine 1+ (Negative); RBC,Urine >182 /hpf (0-5); Squamous Epithelial Cell,Urine <1 /hpf (0-4); Urobilinogen,Urine <2.0 mg/dL (<2.0); WBC,Urine 1 /hpf (0-5)
[2021-06-22 12:42] LABS: Specific Gravity,Urine >1.050 (1.001-1.035)
--- NOTE | 2021-06-22 12:42 | CT ---
EXAMINATION TYPE: CT abdomen pelvis w con DATE OF EXAM: 06/22/2021 COMPARISON: 06/14/2021 INDICATION: Fever. DLP: 2098.1 mGycm, Automated exposure control for dose reduction was used. CONTRAST: 100 mL of Isovue M300. Study performed with Oral Contrast TECHNIQUE: Axial images were obtained from above the diaphragm to the pubic rami in the axial plane a t 5 mm thick sections. Reconstructed images are reviewed on the computer in the coronal plane. FINDINGS: Limited CT sections are obtained the lung bases. The lung bases are clear. CT ABDOMEN: Liver: Normal Spleen: Normal Pancreas: Normal Adrenal glands: The adrenal glands are normal. Gallbladder: Normal Kidneys: No masses are evident. No hydronephrosis is present. Small cortical renal cysts are presen t bilaterally. Delayed images were obtained through the kidneys, which remain unremarkable. Aorta: Normal Inferior vena cava: Normal. CT PELVIS: Loops of bowel within the abdomen and pelvis are normal. There are loops of bowel which are incom pletely distended or lack oral contrast limiting their evaluation. Appendix: History of prior appendectomy Urinary bladder: Normal. Genitourinary structures: Prostate is unremarkable Osseous structures: No suspicious lytic or sclerotic lesions. IMPRESSIONS: 1. No suspicious abnormality to account for fever. 2. Scattered small cortical renal cysts, present previously.
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
[2021-06-22] MEDS ORDERED: VANCOMYCIN 2,000 MG in SODIUM CHLORIDE 0.9% 500 ML 500 ML IVPB SCH (14:00)
[2021-06-22] MEDS: DOCUSATE 100 MG CAP PO PRN (15:54)
[2021-06-22 16:58] LABS: Glucose,Whole Blood 259 mg/dL (75-99)
[2021-06-22] MEDS: VANCOMYCIN 2,000 MG in SODIUM CHLORIDE 0.9% 500 ML 500 ML IVPB SCH (18:10)
--- NOTE | 2021-06-22 19:51 | PN ---
PROGRESS NOTE DATE OF SERVICE: 06/21/2021 REASON FOR FOLLOWUP: 1. Fever. 2. Bacteremia. INTERVAL HISTORY: The patient is afebrile today. The patient is breathing comfortably, currently on room air. Denies any chest pain, shortness of breath or cough. Abdominal discomfort is currently resolved. No vomiting and no diarrhea PHYSICAL EXAMINATION: Blood pressure 154/84, pulse of 109, temperature 99. He is 98% on room air. General description is a middle-aged male up in the chair in no distress. Respiratory system: Unlabored breathing, decreased breath sounds in the bases. No wheeze. Heart S1, S2. Regular rate and rhythm. Abdomen soft, no tenderness. LABS: Blood culture is currently positive with Gram-positive cocci. White count is normal. Repeat CT did not show any acute abdominal pathology. DIAGNOSTIC IMPRESSION AND PLAN: Patient admitted to hospital with fever, now with evidence of Gram-positive bacteremia. We will wait for the final ID of this pathogen to determine further workup. Vancomycin has been added. Blood cultures will be repeated to document clearance of his bacteremia. Continue with supportive care. MMODL / IJN: [id number] /
[2021-06-22 20:07] LABS: Glucose,Whole Blood 160 mg/dL (75-99)
[2021-06-23] MEDS: VANCOMYCIN 2,000 MG in SODIUM CHLORIDE 0.9% 500 ML 500 ML IVPB SCH ×2 (02:33→09:34)
[2021-06-23] MEDS: ACETAMINOPHEN TAB 325 MG TAB PO PRN (02:33)
[2021-06-23] MEDS: HYDROcodone/APAP 10-325MG 1 EACH TAB PO PRN ×3 (05:34→21:19)
[2021-06-23] MEDS: IBUPROFEN 400 MG TAB PO PRN ×3 (05:35→17:57)
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
[2021-06-23 07:30] LABS: Glucose,Whole Blood 106 mg/dL (75-99)
[2021-06-23] MEDS: INSULIN ASPART (NovoLOG) 100 UNIT/ML VIAL SQ SCH ×4 (07:52→20:43)
[2021-06-23] MEDS: METHADONE 10 MG TAB PO SCH ×3 (08:05→20:44)
[2021-06-23] MEDS: DOCUSATE 100 MG CAP PO PRN ×2 (08:06→20:44)
[2021-06-23] MEDS: lisinopriL 10 MG TAB PO SCH (08:06)
[2021-06-23] MEDS: amLODIPine 5 MG TAB PO SCH (08:06)
[2021-06-23 08:07] LABS: ALT 29 U/L (4-49); AST 34 U/L (17-59); African American GFR (CKD) >90 (>60 ml/min/1.73 sqM); Albumin 3.4 g/dL (3.5-5.0); Albumin/Globulin Ratio 0.9; Alkaline Phosphatase 61 U/L (38-126); Anion Gap 8 mmol/L; Blood Urea Nitrogen 15 mg/dL (9-20); Calcium 8.5 mg/dL (8.4-10.2); Carbon Dioxide 24 mmol/L (22-30); Chloride 104 mmol/L (98-107); Globulin 3.7 g/dL; Glucose 121 mg/dL (74-99); Non-African American GFR(CKD) >90 (>60 ml/min/1.73 sqM); Sodium 136 mmol/L (137-145); Total Bilirubin 0.6 mg/dL (0.2-1.3); Total Protein 7.1 g/dL (6.3-8.2)
[2021-06-23] MEDS: SODIUM CHLORIDE 0.9% 1,000 ML IV SCH (08:07)
[2021-06-23 08:37] LABS: C Reactive Protein 15.6 mg/dL (<1.0)
[2021-06-23 12:39] LABS: Glucose,Whole Blood 149 mg/dL (75-99)
--- NOTE | 2021-06-23 12:41 | ECHOF ---
Referral Reason:G+ bacteremia MEASUREMENTS -------- HEIGHT: 180.3 cm WEIGHT: 122.5 kg BP: RVIDd: 2.6 cm (< 3.3) IVSd: 1.7 cm (0.6 - 1.1) LVIDd: 5.2 cm (3.9 - 5.3) LVPWd: 1.7 cm (0.6 - 1.1) IVSs: 2.0 cm LVIDs: 3.5 cm LVPWs: 2.0 cm LAESV Index (A-L): 29.07 ml/m Ao Diam: 3.8 cm (2.0 - 3.7) AV Cusp: 2.6 cm (1.5 - 2.6) LA Diam: 3.5 cm (2.7 - 3.8) MV EXCURSION: 18.959 mm (> 18.000) MV EF SLOPE: 210 mm/s (70 - 150) EPSS: 0.8 cm RAP: 5.00 mmHg RVSP: 8.33 mmHg FINDINGS -------- This was a technically difficult study with suboptimal views. The left ventricular size is normal. There is moderate concentric left ventricular hypertrophy. O verall left ventricular systolic function is normal with, an EF between 55 - 60 %. The diastolic fi lling pattern is normal for the age of the patient {E/E'}. The right ventricle is normal in size. The left atrial size is normal. Normal LA size by volume 22+/-6 ml/m2. The right atrial size is normal. xx ml of Lumason was utilized for enhancement of images. The aortic valve is trileaflet and appears structurally normal. The mitral valve is normal. There is trace mitral regurgitation. The tricuspid valve appears structurally normal. Trace tricuspid regurgitation present. Right sarah tricular systolic pressure is normal at < 35 mmHg. The pulmonic valve was not well visualized. The aortic root size is normal. IVC Not well visulized. There is no pericardial effusion. CONCLUSIONS -------- 1. The left ventricular size is normal. 2. There is moderate concentric left ventricular hypertrophy. 3. Overall left ventricular systolic function is normal with, an EF between 55 - 60 %. 4. The diastolic filling pattern is normal for the age of the patient {E/E'} 5. There is trace mitral regurgitation. 6. Trace tricuspid regurgitation present. 7. There is no pericardial effusion. NATURAL RESOURCE TECHNICIAN: Parris Muñoz RDCS
[2021-06-23 17:38] LABS: Glucose,Whole Blood 152 mg/dL (75-99)
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
[2021-06-23 19:40] LABS: Glucose,Whole Blood 210 mg/dL (75-99)
--- NOTE | 2021-06-23 22:18 | PN ---
PROGRESS NOTE DATE OF SERVICE: 06/23/2021 REASON FOR FOLLOWUP: MSSA bacteremia. INTERVAL HISTORY: Patient is currently afebrile. Patient is breathing comfortably. Denies any chest pain, shortness of breath or cough. No nausea, vomiting. No abdominal pain. No diarrhea. PHYSICAL EXAMINATION: Blood pressure 138/86, pulse of 95, temperature 98.7. He is 98% on room air. General description is a middle-aged male lying in bed in no distress. Respiratory system: Unlabored breathing, clear to auscultation anteriorly. Heart S1, S2. Regular rate and rhythm. Abdomen soft, no tenderness. Left leg did have some swelling and deformity, but no redness, open wound or any drainage. Spine with no tenderness. LABS: Creatinine 0.64. Blood culture with MSSA. DIAGNOSTIC IMPRESSION AND PLAN: Patient with persistent MSSA bacteremia in this patient the hospital with fever and did have some hematuria. A CT of abdomen and pelvis was negative. Echocardiogram did not show any vegetation source being the left lower extremity, he did have multiple surgeries. CT will be ordered to further evaluate the left leg. Blood cultures will be repeated daily to document clearance of bacteremia. Antibiotic has been adjusted to cefazolin. Family at the bedside. Their questions and concerns were answered. MMODL / IJN: [id number] /
[2021-06-24] MEDS ORDERED: VANCOMYCIN TROUGH DUE 1 EACH MISC MISCELLANE ONE (01:00)
[2021-06-24] MEDS: IBUPROFEN 400 MG TAB PO PRN ×3 (01:18→14:54)
[2021-06-24] MEDS: ACETAMINOPHEN TAB 325 MG TAB PO PRN (04:11)
[2021-06-24] MEDS: HYDROcodone/APAP 10-325MG 1 EACH TAB PO PRN ×3 (06:17→23:06)
[2021-06-24 07:25] LABS: Glucose,Whole Blood 144 mg/dL (75-99)
[2021-06-24] MEDS: INSULIN ASPART (NovoLOG) 100 UNIT/ML VIAL SQ SCH ×4 (08:17→20:43)
[2021-06-24] MEDS: METHADONE 10 MG TAB PO SCH ×3 (08:19→20:43)
[2021-06-24] MEDS: lisinopriL 10 MG TAB PO SCH (08:20)
[2021-06-24] MEDS: amLODIPine 5 MG TAB PO SCH (08:20)
--- NOTE | 2021-06-24 08:36 | CT ---
EXAMINATION TYPE: CT lower extremity LT w con DATE OF EXAM: 06/24/2021 COMPARISON: MRI left leg April 17, 2013. Left leg x-ray April 14, 2013 HISTORY: Fever, Bacteremia CT DLP: 1466.7 mGycm Automated exposure control for dose reduction was used. CONTRAST: Performed with IV Contrast, patient injected with 100 mL of Isovue 300. FINDINGS: There is chronic lateral bowing to the proximal fibular diaphysis. There is heterotopic soft tissue o ssification or bony bridging from peak of curvature extending anteriorly to the lateral aspect of the proximal tibial diaphysis. This is unchanged in appearance from 2013 studies. Close approximation of the proximal tibia and fibular head redemonstrated with mild to moderate spurring at this level. The re is no new suspicious bony destruction. There is fairly moderate generalized muscular atrophy throu ghout the visualized left leg redemonstrated. No new concerning rim-enhancing focal fluid collection is seen. Mild subcutaneous edema distally is redemonstrated. Asymmetric enlargement of the left leg i s redemonstrated. Small vessel arterial calcification noted. Proximal Superficial varicose veins rede monstrated. IMPRESSION: No new suspicious bony destruction to suggest osteomyelitis or rim-enhancing fluid collec tion to suggest abscess. No significant change from the 2013 MRI.
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
[2021-06-24] MEDS ORDERED: HYDROcodone/APAP 7.5-325MG 1 EACH TAB PO PRN (12:08)
[2021-06-24 12:11] LABS: Glucose,Whole Blood 189 mg/dL (75-99)
[2021-06-24] MEDS ORDERED: LORazepam 2 MG/ML INJ IV PRN (12:16)
[2021-06-24] MEDS ORDERED: HYDROmorphone 1 MG/ML 1 ML SYRINGE IVP PRN (12:21)
[2021-06-24] MEDS ORDERED: HYDROmorphone 0.5 MG/0.5 ML SYRINGE IVP PRN (12:24)
[2021-06-24 17:32] LABS: Glucose,Whole Blood 232 mg/dL (75-99)
[2021-06-24 20:23] LABS: Glucose,Whole Blood 230 mg/dL (75-99)
[2021-06-25] MEDS: ACETAMINOPHEN TAB 325 MG TAB PO PRN ×3 (02:13→22:45)
[2021-06-25] MEDS: IBUPROFEN 400 MG TAB PO PRN ×3 (04:52→19:43)
[2021-06-25 07:34] LABS: Glucose,Whole Blood 276 mg/dL (75-99)
[2021-06-25] MEDS: HYDROcodone/APAP 10-325MG 1 EACH TAB PO PRN ×3 (08:21→23:24)
[2021-06-25] MEDS: amLODIPine 5 MG TAB PO SCH (08:21)
[2021-06-25] MEDS: DOCUSATE 100 MG CAP PO PRN (08:21)
[2021-06-25] MEDS: METHADONE 10 MG TAB PO SCH ×2 (08:21→17:25)
[2021-06-25] MEDS: lisinopriL 10 MG TAB PO SCH (08:21)
[2021-06-25] MEDS: INSULIN ASPART (NovoLOG) 100 UNIT/ML VIAL SQ SCH ×4 (08:23→20:35)
--- NOTE | 2021-06-25 08:23 | CDI ---
Documentation Clarification Form Date: 06/25/2021 07:59:59 AM From: Rizwana Womack RN CCDS Admit Date: 06/22/2021 01:54:00 PM Patient Name: Suman Ash Visit Number: [id number] Discharge Date: ATTENTION: The Clinical Documentation Specialists (CDI) and [facility] Coding Staff appreciate your assistance in clarifying documentation. Please respond to the clarification below the line at the bottom and electronically sign. The CDI & [facility] Coding staff will review the response and follow-up if needed. Please note: Queries are made part of the Legal Health Record. If you have any questions, please contact the author of this message via ITS. Dr. Candido Calvert There is documentation of Gram-positive bacteremia 06/22 through 06-24, medicine progress notes. location]. Bacteremia is considered a lab finding. Additional clarification regarding bacteremia is requested. Patient history/risk factors: 50-year-old male presents to the ED for intermittent fevers and chills with nonspecific pain all over the body. The patient has had fevers up to 103 F at home. Medical History: Chronic pain on methadone and [place] at home, DM, HTN and Musculoskeletal Disorder. Clinical Indicators: WBC: 06/22 8.6 Blood Culture: 06/21 Staphylococcus aureus ID Progress Note: 06/22 Patient admitted with fever, now with evidence of Gram- positive bacteremia. Blood Cultures will be repeated to document clearance of his bacteremia. Treatment: 06/21 0.9NS 1L bolus x1 Antibiotics: 06/21 Rocephin 1,000 mg x1, 06/22 06/23 Ceftriaxone 2gm IVPB Q24HR, 06/22 x1 Vancomycin 2,000mg IVPB x1, 06/22 06/23 Vancomycin 2,000mg IVPB Q8HR, 06/23 to current Cefazolin 2gm IVPB Q8HR, Please provide additional clarification regarding the etiology/cause and/or clinical significance of the bacteremia: [ ] Bacteremia is related to sepsis [ ] Bacteremia is due to infectious process, please specify: [ ] Other, please specify [ X ] Unable to determine (Template Last Revised: October 2020) Documented in my progress note every day that source of bacteremia is unknown MTDD
[2021-06-25 09:18] LABS: Basophils # (A) 0.02 X 10*3/uL (0.00-0.10); Basophils % (A) 0.3 %; Eosinophils % (A) 1.3 %; HCT 35.6 % (39.6-50.0); HGB 11.2 g/dL (13.0-17.0); Lymphocytes # (A) 1.27 X 10*3/uL (0.90-5.00); Lymphocytes % (A) 16.1 %; MCH 27.5 pg (27.0-32.0); MCHC 31.5 g/dL (32.0-37.0); MCV 87.5 fL (80.0-97.0); Mean Platelet Volume 9.9 fL (9.5-12.2); Monocytes # (A) 0.61 X 10*3/uL (0.20-1.00); Monocytes % (A) 7.8 %; Neutrophils # (A) 5.83 X 10*3/uL (1.80-7.70); Platelet Count 240 X 10*3/uL (140-440); RBC 4.07 X 10*6/uL (4.40-5.60); RDW 12.7 % (11.5-14.5); WBC 7.87 X 10*3/uL (4.50-10.00)
--- NOTE | 2021-06-25 10:08 | PN ---
PROGRESS NOTE DATE OF SERVICE: 06/24/2021 REASON FOR FOLLOWUP: MSSA bacteremia. INTERVAL HISTORY: The patient is afebrile. The patient is currently breathing comfortably. Denies any chest pain or shortness of breath or cough. No abdominal pain or pain to the left leg area. PHYSICAL EXAMINATION: Blood pressure is 136/84 with a pulse of 86, temperature 97.9. He is 96% on room air. General description is a middle-aged male lying in bed in no distress. Respiratory system: Unlabored breathing, clear to auscultation anteriorly. Heart S1, S2. Regular rate and rhythm. Abdomen soft, no tenderness. LABS: Repeat blood culture has been negative so far. DIAGNOSTIC IMPRESSION AND PLAN: Patient with MSSA bacteremia without any obvious focus. CT of the left leg was negative. Echocardiogram was negative. We will obtain a WBC scan to see if that will help in localizing the source of this infection. For now, continue with cefazolin. Family at the bedside. Multiple questions were answered. MMODL / IJN: [id number] /
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
--- NOTE | 2021-06-25 11:23 | P.PN ---
Progress Note - Text Progress Note Date: 06/25/21 The patient remains afebrile. He continues to report shoulder pain. The cause of his Staph aureus bacteremia remains unknown. He is scheduled to undergo a WBC scan. He denies dysuria, and states that his urine is now normal in appearance. He understands that a cause for the microhematuria has not been identified, and he will undergo outpatient cystoscopy to rule out intravesical pathology. Please notify me if I can be of any further assistance.
[2021-06-25 12:26] LABS: Glucose,Whole Blood 108 mg/dL (75-99)
[2021-06-25 13:05] LABS: African American GFR (CKD) 117.2 (60.0-200.0); Albumin 3.3 g/dL (3.8-4.9); Albumin/Globulin Ratio 1.02 (1.60-3.17); Anion Gap 12.2 mmol/L (4.00-12.00); BUN/Creat Ratio 16.08 Ratio (12.00-20.00); Blood Urea Nitrogen 13.6 mg/dL (9.0-27.0); C Reactive Protein 7.1 mg/dL (0.00-0.80); Calcium 8.5 mg/dL (8.7-10.3); Carbon Dioxide 24.6 mmol/L (21.6-31.8); Globulin 3.3 g/dL (1.6-3.3); Non-African American GFR(CKD) 101.1 (60.0-200.0); Potassium 4.2 mmol/L (3.5-5.5); Total Bilirubin 0.3 mg/dL (0.30-1.20); Total Protein 6.6 g/dL (6.2-8.2)
[2021-06-25 16:54] LABS: Erythrocyte Sedimentation Rate 70 mm/Hr (0-20)
[2021-06-25] MEDS ORDERED: METHADONE 10 MG TAB PO PRN (17:00)
[2021-06-25 17:37] LABS: Glucose,Whole Blood 157 mg/dL (75-99)
--- NOTE | 2021-06-25 19:00 | NM ---
EXAMINATION TYPE: NM WBC whole body DATE OF EXAM: 06/25/2021 COMPARISON: CT left lower extremity 06/24/2021 HISTORY: Bacteremia TECHNIQUE: Following administration of 17.4 mCi Tc99m Ceretec. Images obtained 4 hours post injecti on. FINDINGS: Normal physiological tracer activity is noted in the liver and spleen and in the bone marrow of the a xial and appendicular skeleton. There is no abnormal radiotracer activity of the left lower extremity or other focal abnormal region of activity. There is nonfocal activity of the lateral distal right thigh. IMPRESSION: 1. No evidence for abnormal focal tracer activity. 2. Nonfocal activity of the lateral distal right thigh with somewhat serpiginous appearance may be r elated to vascularity such as varices, although differential could include less likely cellulitis. Re commend correlation with physical exam.
[2021-06-25 20:23] LABS: Glucose,Whole Blood 252 mg/dL (75-99)
--- NOTE | 2021-06-25 22:57 | PN ---
PROGRESS NOTE DATE OF SERVICE: 06/25/2021 REASON FOR FOLLOWUP: MSSA bacteremia. INTERVAL HISTORY: The patient is afebrile. The patient is breathing comfortably. Denies any chest pain, shortness of breath or cough. No abdominal pain or diarrhea. PHYSICAL EXAMINATION: Blood pressure is 146/91 with a pulse of 84, temperature 98.8. He is 100% on room air. General description is a middle-aged male up in the chair in no distress. Respiratory system: Unlabored breathing, clear to auscultation anteriorly. Heart S1, S2. Regular rate and rhythm. Abdomen soft, no tenderness. Extremities no edema of the feet. LABS: Hemoglobin is 11.2, white count 7.87. Sed rate is 70. Creatinine 0.8. Blood culture repeat has been negative. WBC scan did not show any obvious uptakes. DIAGNOSTIC IMPRESSION AND PLAN: Patient with MSSA bacteremia without any clear localizing focus. Patient is covered with cefazolin and plan at this time is to obtain a PICC line for outpatient IV antibiotic. Continue with supportive care. MMODL / IJN: [id number] /
[2021-06-26] MEDS: METHADONE 10 MG TAB PO SCH ×3 (01:04→17:15)
[2021-06-26] MEDS: ACETAMINOPHEN TAB 325 MG TAB PO PRN ×2 (05:39→20:28)
[2021-06-26 07:14] LABS: Glucose,Whole Blood 146 mg/dL (75-99)
[2021-06-26] MEDS: HYDROcodone/APAP 10-325MG 1 EACH TAB PO PRN ×2 (07:43→15:34)
[2021-06-26] MEDS: amLODIPine 5 MG TAB PO SCH (08:33)
[2021-06-26] MEDS: INSULIN ASPART (NovoLOG) 100 UNIT/ML VIAL SQ SCH ×4 (08:33→20:33)
[2021-06-26] MEDS: lisinopriL 10 MG TAB PO SCH (08:34)
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
[2021-06-26 12:26] LABS: Glucose,Whole Blood 142 mg/dL (75-99)
[2021-06-26] MEDS: IBUPROFEN 400 MG TAB PO PRN ×2 (12:43→20:32)
[2021-06-26 17:32] LABS: Glucose,Whole Blood 205 mg/dL (75-99)
--- NOTE | 2021-06-26 17:40 | PN ---
PROGRESS NOTE DATE OF SERVICE: 06/26/2021 REASON FOR FOLLOWUP: MSSA bacteremia. INTERVAL HISTORY: The patient is afebrile. The patient is currently breathing comfortably. No chest pain, shortness of breath or cough. No nausea, no vomiting. No abdominal pain or diarrhea. PHYSICAL EXAMINATION: Blood pressure 155/97, pulse of 82, temperature of 97.8. He is 98% on room air. General description is a middle-aged male up in the chair in no distress. Respiratory system: Unlabored breathing, clear to auscultation anteriorly. Heart S1, S2. Regular rate and rhythm. Abdomen soft, no tenderness. Extremities no edema of the feet. Examination of the bilateral shoulder area: There is no swelling or redness. No tenderness. Examination of the spine: patient has no swelling, no redness and no tenderness on deep palpation. LABS: No new labs have been obtained today. Blood cultures from 06/23, 06/24 and 06/26 are negative. DIAGNOSTIC IMPRESSION AND PLAN: Patient with MSSA bacteremia, possible skin and soft tissue source, as the patient did have some ulceration to the wound on the left foot toe. The patient did have extensive workup to look for any focus. That has been negative. CT of abdomen and pelvis was negative. Echocardiogram was negative. WBC scan was negative. The patient cleared his bacteremia quickly. Will plan for at least 2-4 weeks of IV cefazolin, for which a PICC line will be placed, and close outpatient followup. He did have multiple questions. Those were answered in layman's terms. MMODL / IJN: [id number] /
[2021-06-26 20:17] LABS: Glucose,Whole Blood 210 mg/dL (75-99)
[2021-06-27] MEDS: METHADONE 10 MG TAB PO SCH ×3 (00:41→16:17)
[2021-06-27] MEDS: HYDROcodone/APAP 10-325MG 1 EACH TAB PO PRN ×3 (00:41→15:57)
[2021-06-27] MEDS: ACETAMINOPHEN TAB 325 MG TAB PO PRN ×3 (04:08→23:08)
[2021-06-27] MEDS: IBUPROFEN 400 MG TAB PO PRN ×4 (04:08→21:25)
[2021-06-27 07:18] LABS: Glucose,Whole Blood 166 mg/dL (75-99)
[2021-06-27] MEDS: lisinopriL 10 MG TAB PO SCH (08:34)
[2021-06-27] MEDS: amLODIPine 5 MG TAB PO SCH (08:34)
[2021-06-27] MEDS: INSULIN ASPART (NovoLOG) 100 UNIT/ML VIAL SQ SCH ×4 (08:37→21:26)
[2021-06-27] MEDS: DOCUSATE 100 MG CAP PO PRN (10:44)
[2021-06-27 12:27] LABS: Glucose,Whole Blood 226 mg/dL (75-99)
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
[2021-06-27 17:21] LABS: Glucose,Whole Blood 264 mg/dL (75-99)
[2021-06-27 19:45] LABS: Glucose,Whole Blood 195 mg/dL (75-99)
--- NOTE | 2021-06-27 20:17 | PN ---
PROGRESS NOTE DATE OF SERVICE: 06/27/2021 REASON FOR FOLLOWUP: MSSA bacteremia. INTERVAL HISTORY: The patient is currently afebrile. The patient seems to be is to be slightly upset, as he is waiting for outpatient antibiotic arrangement before discharge. Patient denies having any chest pain, shortness of breath or cough. No abdominal pain or diarrhea. PHYSICAL EXAMINATION: Blood pressure is 165/89 with pulse of 85, temperature 97.9. He is 100% on room air. General description is a middle-aged male up in the chair in no distress. Respiratory system: Unlabored breathing, clear to auscultation anteriorly. Heart S1, S2. Regular rate and rhythm. Abdomen soft, no tenderness. Lower extremity: No redness or any drainage. LABS: No new labs have been obtained today. Blood culture repeat has been negative. DIAGNOSTIC IMPRESSION AND PLAN: Patient with MSSA bacteremia. Concern for possible skin and soft tissue source. The patient has some superficial to the toe area, but no definite cellulitis. The patient does not have any evidence of cellulitis or tenderness to the shoulder or the spine area. ROWAN was negative. CT of abdomen and pelvis was negative. Patient has cleared his bacteremia. Waiting for the outpatient IV cefazolin to be arranged for 2 weeks and close outpatient followup. MMODL / IJN: [id number] /
[2021-06-28] MEDS: HYDROcodone/APAP 10-325MG 1 EACH TAB PO PRN ×3 (00:07→18:05)
[2021-06-28] MEDS: METHADONE 10 MG TAB PO SCH ×3 (01:50→17:21)
[2021-06-28] MEDS: IBUPROFEN 400 MG TAB PO PRN ×3 (04:50→20:16)
[2021-06-28 07:27] LABS: Glucose,Whole Blood 122 mg/dL (75-99)
[2021-06-28] MEDS: lisinopriL 10 MG TAB PO SCH (08:19)
[2021-06-28] MEDS: amLODIPine 5 MG TAB PO SCH (08:19)
[2021-06-28] MEDS: DOCUSATE 100 MG CAP PO PRN (08:38)
[2021-06-28] MEDS: INSULIN ASPART (NovoLOG) 100 UNIT/ML VIAL SQ SCH ×4 (08:39→22:19)
[2021-06-28 09:01] LABS: African American GFR (CKD) 112.6 (60.0-200.0); Anion Gap 10.4 mmol/L (4.00-12.00); BUN/Creat Ratio 18.88 Ratio (12.00-20.00); Blood Urea Nitrogen 17.2 mg/dL (9.0-27.0); Calcium 9.3 mg/dL (8.7-10.3); Carbon Dioxide 29.3 mmol/L (21.6-31.8); Non-African American GFR(CKD) 97.1 (60.0-200.0); Potassium 4.8 mmol/L (3.5-5.5)
[2021-06-28] MEDS: ACETAMINOPHEN TAB 325 MG TAB PO PRN ×2 (11:13→22:29)
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
[2021-06-28 12:17] LABS: Glucose,Whole Blood 188 mg/dL (75-99)
[2021-06-28 17:12] LABS: Glucose,Whole Blood 176 mg/dL (75-99)
[2021-06-28 21:21] LABS: Glucose,Whole Blood 189 mg/dL (75-99)
[2021-06-29] MEDS: METHADONE 10 MG TAB PO SCH ×3 (01:04→16:59)
[2021-06-29] MEDS: HYDROcodone/APAP 10-325MG 1 EACH TAB PO PRN ×3 (02:41→17:59)
[2021-06-29] MEDS: IBUPROFEN 400 MG TAB PO PRN ×3 (04:16→19:50)
[2021-06-29 07:12] LABS: Glucose,Whole Blood 149 mg/dL (75-99)
[2021-06-29 08:15] VITALS: BMI 36.6
--- NOTE | 2021-06-29 08:25 | PN ---
PROGRESS NOTE DATE OF SERVICE: 06/28/2021 REASON FOR FOLLOWUP: MSSA bacteremia possible skin and soft tissue source. INTERVAL HISTORY: Patient is afebrile. The patient is currently breathing comfortably. Denies any chest pain, shortness of breath or cough. No nausea, no vomiting. No abdominal pain. No diarrhea. PHYSICAL EXAMINATION: Blood pressure 155/86, pulse of 88, temperature 97.7. He is 100% on room air. General description is a middle-aged male up in the chair in no distress. Respiratory system: Unlabored breathing. Clear to auscultation anteriorly. Heart S1, S2. Regular rate and rhythm. Abdomen soft, no tenderness. Extremities: No edema of the feet. LABS: Creatinine 0.9. Blood culture repeat has been negative. DIAGNOSTIC IMPRESSION AND PLAN: Patient with MSSA bacteremia in this patient who did have extensive workup with no evidence of any deep infection. The patient is covered on cefazolin waiting for outpatient IV antibiotic arrangement on discharge. Plan is for 2 weeks of antibiotics and close outpatient followup. MMODL / IJN: [id number] /
[2021-06-29] MEDS: amLODIPine 5 MG TAB PO SCH (08:34)
[2021-06-29] MEDS: lisinopriL 10 MG TAB PO SCH (08:34)
[2021-06-29] MEDS: INSULIN ASPART (NovoLOG) 100 UNIT/ML VIAL SQ SCH ×4 (08:35→21:08)
[2021-06-29 11:57] LABS: Glucose,Whole Blood 212 mg/dL (75-99)
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
--- NOTE | 2021-06-29 14:43 | PN ---
PROGRESS NOTE DATE OF SERVICE: 06/29/2021 REASON FOR FOLLOWUP: MSSA bacteremia. INTERVAL HISTORY: Patient is afebrile. The patient is currently breathing comfortably, seems to be slightly upset for not being able to discharge. Denies any chest pain, though. No cough. No abdominal pain. No diarrhea. PHYSICAL EXAMINATION: Blood pressure 154/82 with a pulse of 75. Temperature is 97.4. He is 96% on room air. General description is a middle-aged male up in the chair in no distress. Respiratory system: Unlabored breathing, decreased intensity of breath sounds. No wheeze. Heart S1, S2. Regular rate and rhythm. Abdomen soft. No tenderness. LABS: No new labs have been obtained today. DIAGNOSTIC IMPRESSION AND PLAN: Patient with MSSA bacteremia, this patient has cleared his bacteremia quickly. No evidence of any deep infection with all the investigations. Plan is for cefazolin 2 grams q.8 hours for 2 weeks with close outpatient followup. Prescription provided to the senior strategy manager. MMODL / IJN: [id number] /
[2021-06-29] MEDS: ACETAMINOPHEN TAB 325 MG TAB PO PRN ×2 (15:18→22:01)
[2021-06-29 17:21] LABS: Glucose,Whole Blood 210 mg/dL (75-99)
[2021-06-29 20:46] LABS: Glucose,Whole Blood 260 mg/dL (75-99)
[2021-06-30] MEDS: METHADONE 10 MG TAB PO SCH ×2 (01:02→08:44)
[2021-06-30] MEDS: HYDROcodone/APAP 10-325MG 1 EACH TAB PO PRN ×2 (02:13→11:07)
[2021-06-30 02:43] VITALS: PULSE 86; RESP 18
[2021-06-30 08:11] VITALS: BP 163/95; TEMP 97.8
[2021-06-30 08:14] LABS: Glucose,Whole Blood 204 mg/dL (75-99)
[2021-06-30] MEDS: lisinopriL 10 MG TAB PO SCH (08:47)
[2021-06-30] MEDS: amLODIPine 5 MG TAB PO SCH (08:47)
[2021-06-30] MEDS: INSULIN ASPART (NovoLOG) 100 UNIT/ML VIAL SQ SCH ×2 (08:47→12:22)
[2021-06-30] MEDS: IBUPROFEN 400 MG TAB PO PRN (08:57)
[2021-06-30 12:12] LABS: Glucose,Whole Blood 135 mg/dL (75-99)
--- NOTE | 2021-06-30 14:37 | PN ---
PROGRESS NOTE DATE OF SERVICE: 06/30/2021 REASON FOR FOLLOWUP: MSSA bacteremia. INTERVAL HISTORY: The patient is afebrile. The patient is currently breathing comfortably. Denies having any chest pain. No shortness of breath, No cough. No abdominal pain. No diarrhea. PHYSICAL EXAMINATION: Blood pressure 109/95 with a pulse of 83, temperature 97.8. He is 99% on room air. General description is a middle-aged male lying in bed in no distress. Respiratory system: Unlabored breathing. Clear to auscultation anteriorly. Heart S1, S2. Regular rate and rhythm. Abdomen soft, no tenderness. LABS: No new labs have been obtained today. DIAGNOSTIC IMPRESSION AND PLAN: Patient with MSSA bacteremia. This patient did have extensive workup. No evidence of any deep focus. Patient has cleared bacteremia very quickly, only 2 days. Plan is for 2 weeks of IV cefazolin. Close outpatient followup. All his questions and concerns were answered. MMODL / IJN: [id number] /
== END 2021-06-30 14:37 | disposition home or self-care (01) | DRG 603 ==
LOC: EC 11:15 → 6NMEDSUR 15:57 → OBSVTOIN 06-22 13:54
PROVIDERS: ADMIT Internal Medicine; ATTEND Internal Medicine
PROC: 02HV33Z Insertion of Infusion Device into Superior Vena Cava, Percutaneous Approach (ICD-10-PCS; principal; 2021-06-29)
DX: L08.9 Local infection of the skin and subcutaneous tissue, unspecified (principal); R78.81 Bacteremia; Z20.822 Contact with and (suspected) exposure to COVID-19; E11.65 Type 2 diabetes mellitus with hyperglycemia; G89.4 Chronic pain syndrome; R31.29 Other microscopic hematuria; M54.9 Dorsalgia, unspecified; I10 Essential (primary) hypertension; B95.61 Methicillin susceptible Staphylococcus aureus infection as the cause of diseases classified elsewhere; K59.00 Constipation, unspecified; L97.529 Non-pressure chronic ulcer of other part of left foot with unspecified severity; N28.1 Cyst of kidney, acquired; Z79.84 Long term (current) use of oral hypoglycemic drugs; Z79.899 Other long term (current) drug therapy; Z87.828 Personal history of other (healed) physical injury and trauma; Z88.8 Allergy status to other drugs, medicaments and biological substances; Z81.8 Family history of other mental and behavioral disorders; Z80.9 Family history of malignant neoplasm, unspecified; Z82.49 Family history of ischemic heart disease and other diseases of the circulatory system
CPT/HCPCS: 36410; 36415; 71046; 74177; 76937; 78306; 80048; 80053; 81001; 83605; 83735; 84145; 85025; 85379; 85610; 85652; 85730; 86140; 87040; 87077; 87186; 87449; 87502; 87634; 87635; 93005; 93306; 96374; 96375; 99285

== ENCOUNTER → 2021-07-06 | Outpatient (CLI) | payer MEDICARE, OTHER ==
[2021-07-06 11:20] VITALS: BP 129/82; PULSE 120; RESP 18; TEMP 98.3
--- NOTE | 2021-07-07 09:25 | P.PN ---
Subjective Progress Note Date: 07/06/21 This is a follow-up visit for this 50 years old male with a chronic history of severe left lower extremity pain,he is Diagnosed with complex regional pain syndrome type I left lower extremity,patient had multiple surgical interventions ,on his left lower extremity,and previously we have done multiple pain intervention procedures, and patient had only short-term benefit from it, and he is currently on pain medication, methadone 10 mg 3 times a day, Norco10/325 every 8 hours when necessary, he denies any side effects of the medication ,he denies any excessive drowsiness or sleepiness,he tried Neurontin and Lyrica ,amitriptylin , and he had side effects from them , patient had some constipation and uses Colace PRN, patient was admitted recently to [facility] secondary fever and chills and found out that he had bacteremia from unknown source, he was treated with antibiotic and he had also microscopic hematuria, patient will follow up with his primary care and infectious disease Physical Examinations : -Constitutiona : Cooperative , not in acute distress . -HEENT nech : supple , no Lymphadenopathy , normal thyroid size . eyes : no ptosis , no icterus, no photophobia . ENT : normal of hearing , normal oropharynx , no Thrush . - neurologic : Cranial nerve II to XII intact , no focal neurological deffecit . -psychatric : alert , oriented X 3 , appropriate affect , intact judgment and insight . -Lymphatic : no Lymphadenopathy . - musculoskeltal : Left lower extremity discoloration and swelling, positive allodynia left lower extremity below the knee area Assessment and plan=1-complex regional pain syndrome type I left lower extremity. Patient had no benefit from interventional pain management, 2-chronic and current use of high-risk medication specifically opiate, patient currently on methadone 10 mg 3 times a day, [place] 10/325 every 8 hours dispense 90 with 1 refill . Colace 100 mg twice a day when necessary for constipation Patient already had a prescription for naloxone 4 mg intranasally when necessary MAPS reviewed and it was ok. Patient denies any side effects of the current pain medication and the current treatment/medication helping the patient to do activity of daily living , Diagnoses, prognosis, treatment options, including but not limited to physical therapy, medication management, interventional therapies, and surgery, were discussed with the patient All the questions answered The narcotic consent was signed and patient agreed and understood the side effects and complications of opioid treatment.Patient signed the narcotic agreement, and was orally counseled, not to overuse, not to abuse, not to Divert , not tp sell pain medication, and to take it as prescribed only, Patient was counseled not to drive or operate heavy equipment while using narcotic medication, and advised not to use alcohol or any Illicit drugs while using the narcotis.understanding that lack of compliance with any of the above instructions, will likely to cause discharge from, the pain service, not to renew his narcotic prescriptions PQRS Measure Charge Sheet Measure #130: Documentation of Current Meds in Medical Chart: Patient's medications documented in chart Measure #226: Tobacco Use: Screen & Cessation Intervention: Pt not a tobacco user Measure #111: Pneumonia Vaccination: Pneumococcal vaccine NOT administered or previously given Measure #47: Advance Care Plan: Advance care planning discussed & documented, pt chose/unable to give Measure #412: Opioid Treatment Agreement: Documented signed opioid trtmnt agreemnt min once during opioid trtmnt Measure #408: Opioid Therapy Follow-up Evaluation: Patient had f/u eval minimum every 3 months during opioid therapy Measure #317: Preventitive Care & Scrn High Bld Press & F/U: Pre-hypertensive or hypertensive BP documented, pt will f/u with PCP Measure #128: Body Mass Index (BMI) Screening & Follow-up: BMI documented ABOVE normal parameters - f/u documented Measure #131: Pain Assessment & Follow-up: Pain positive & plan documented, Follow-up scheduled Measure #431: Unhealthy Alcohol Use Preventative Care & Scrn: Objective - Vital Signs Vital signs: Vital Signs Temp 98.3 F 07/06/21 11:12 Pulse 120 H 07/06/21 11:12 Resp 18 07/06/21 11:12 BP 129/82 07/06/21 11:12 Pulse Ox 98 07/06/21 11:12 Intake & Output 07/06/21 07/07/21 07/07/21 18:59 06:59 18:59 Weight 119.758 kg
== END ==
LOC: PNWHC3 10:42
PROVIDERS: ATTEND Specialist
DX: G90.522 Complex regional pain syndrome I of left lower limb (principal); Z79.891 Long term (current) use of opiate analgesic; Z88.4 Allergy status to anesthetic agent; Z88.8 Allergy status to other drugs, medicaments and biological substances
CPT/HCPCS: 80307; 99212; G0482

== ENCOUNTER → 2021-07-28 | Outpatient (CLI) | payer OTHER, MEDICARE ==
--- NOTE | 2021-07-29 12:43 | CT ---
EXAMINATION TYPE: CT cervical spine wo con DATE OF EXAM: 07/28/2021 COMPARISON: None HISTORY: h/o c5-[address] DLP: 1105.9 mGycm Automated exposure control for dose reduction was used. TECHNIQUE: CT scan of the cervical spine is obtained without contrast, axial images are obtained, sa gittal and coronal reformatted images are also reviewed. FINDINGS: There is loss of the normal cervical lordosis with a kyphosis at the C5-C6 level. There is marked irregularity of the endplates at both C5 and C6. There also appears to be soft tissue fullness anterior to the vertebral segments. Uncovertebral joint hypertrophy and posterior spurring results i n canal stenosis and foraminal encroachment. A discitis or osteomyelitis would be in the differential diagnosis. Report was called to the patient's office and referring clinician 11:45 AM 07/29/2021. Degenerative disc disease at C3-4, C4-5 and C6-C7. Lung apices clear. Chronic appearing deformity of the right clavicle. IMPRESSION: 1. There is a kyphosis of the level C5-C6 which is at the reported history of previous fracture. No p rior exams are available. Of C5 and C6 are markedly irregular with possible mild destructive change a nd soft tissue fullness in the prevertebral soft tissues. Report was called to referring clinician's office. Correlate with MRI with contrast to exclude a discitis or osteomyelitis.
== END | disposition home or self-care (01) ==
LOC: RADCTMAIN 18:13
PROVIDERS: ATTEND Orthopaedic Surgery Orthopaedic Surgery of the Spine
DX: M40.202 Unspecified kyphosis, cervical region (principal)
CPT/HCPCS: 72125

== ENCOUNTER → 2021-08-19 | Outpatient (CLI) | payer OTHER ==
[2021-08-19 13:31] VITALS: BP 169/98; PULSE 105; RESP 18
--- NOTE | 2021-08-19 14:14 | P.PN ---
Subjective Progress Note Date: 08/19/21 Principal diagnosis: A 50 yr old male with a history of severe and chronic low back pain secondary to lumbar degenerative disc diseases and lumbar spondylosis with facet arthropathy presents today for medication refills. Pain level is 8 /10 but he would be happier if the pain level was manageable to 4 /10. He recently was also diagnosed with comminuted fractures of the cervical spine and is due to have a cervical fusion of the C3-C7. He needs an intermittent increase in his pain medications. He also was discontinued of Metformin and given insulin while hospitalized last month for fever of unknown origin and has felt increased constipation where the dose/ frequency of colace is insufficient. He only empties once or twice a month. He feels impacted otherwise. Pain in his lumbar spine is dull/ achy with radiation down to the left toes. There, he has numbness in the toes. Pain is provoked by bending, twisting or lifting. Pain is alleviated with medications, injections (which only were effective for 1-3 days), rest, elevation of the left lower extremity, repositioning and TENS unit use. Interventional pain procedures completed include Daniele MAK Patient is currently on Ravenel 10/325mg, Methadone 10mg Patient denies any side effects of the medication(s), denies excessive drowsiness or sleepiness, denies suicidal ideation and reports that the current pain medication is helping to control the pain and improve activities of daily living. Patient denies any motor or sensory deficits. Patient denies any fever or night sweats, denies any change in the bowel movements or urination. Physical Examination: -Constitutional: Cooperative. Not in acute distress . -HEENT: Neck is supple. No lymphadenopathy. No thyromegaly. Normal thyroid size. Eyes: No ptosis , no icterus, no photophobia. ENT: No auditory deficits. Normal oropharynx. No Thrush. - Respiratory: Chest clear to auscultations bilaterally. No wheezing. No rhonchi. - Cardiovascular: Regular rate and rhythm. S1 / S2 , no S3 , no S4. - Gastrointestinal: Abdomen soft no tenderness. Bowel sounds positive in all four quadrants. No organomegaly. - Genitourinary: Deferred. - Neurologic: Cranial nerve II to XII intact. No focal neurological deficits . - Psychatric: Alert & oriented x 3. Matching mood & appropriate affect. Judgment and insight intact. - Lymphatic: No Lymphadenopathy. - Musculoskeletal: Cervical spine: Muscle bulk/ tone/ strength in the bilateral upper extremities normal. Hard C collar in place Unable to determine range of motion at this time Unable to palpate cervical spine at this time Facet loading test cervical area positive. Lumbar spine: Motor bulk/ tone lower extremities , thigh and legs : 5/5 Left lower extremity strength 4/5 Left lower extremity ecchymosed, edematous, tender to touch Deep tendon reflexes : Normal Knee Jerk. Normal Ankle Jerk . Lumbar Facet Loading Test positive Straight Leg Raise: positive at 30 degrees right side/ left side Jaimee test: positive right side / left side Range of motion: Flexion of the lumbar spine <60 degrees Range of motion: Extension of the lumbar spine <20 degrees Severe tenderness over the Sacroiliac joint: right side / left side Assessment and plan: Chronic low back pain secondary to lumbar degenerative disc disease with facet arthropathy without myelopathy Recommendation to increase Ravenel to Q6h for 1 month while the patient is awaiting surgery Increase frequency of Colace Discussed increased water intake, increased psyllium fiber supplementation Chronic and current use of high-risk medication (Opioids). The patient was counseled about risk of opioid use, psychological risk associated with opioids and was orally counseled to not overuse , divert or sell medications. Pt is to store medication in a safe location. The patient is counseled against driving while using narcotic medications and also not to use alcohol or any illicit recreational drugs. Patient verbalized understanding that the lack of compliance will result in failure to renew narcotic prescription(s) as well as possible discharge from the clinic Diagnoses, prognosis and treatment options including but not limited to physical therapy, surgical interventions, interventional therapies and medication management including narcotics and adjuvant medication were discussed. All patient questions answered UDS reviewed and was consistent Opioid agreement reviewed and is up to date MAPS reviewed and it was appropriate. Prescription refill for I have spent 31 minutes on patient care today. Dr Vargas was available by phone for the evaluation of this patient. The time was used to review the [facility] records including relevant urine studies and Prescription history (MAPs), review of the available imaging, evaluation and examination of the patient, coordination of care with the medical staff and if applicable referring physicians, as well as creation of the medical record Objective - Vital Signs Vital signs: Vital Signs Temp Pulse 105 H 08/19/21 13:25 Resp 18 08/19/21 13:25 BP 169/98 08/19/21 13:25 Pulse Ox 97 08/19/21 13:25 PQRS Measure Charge Sheet Mode of Arrival: Ambulatory - Pain Location Left Leg Non-Pharmacological Interventions: Elevation, Inactivity, Position/Reposition, Stretching, TENS Unit Pharmacological Interventions: PRN Medication, Scheduled Medication PQRS Narrative: Smoking Status Never smoker Narcotic Agreement Date Signed 03/09/21 Blood Pressure 169/98 Pain Intensity [Left Leg] 8 Scale Used Numeric (1 - 10) Hx Alcohol Use (MH) No Home Medications: Ambulatory Orders amLODIPine BESYLATE/BENAZEPRIL [amLODIPine BESYLATE/BENAZEPRIL 5-10 mg] 1 cap PO DAILY 03/09/21 metFORMIN HCL [Glucophage] 1,000 mg PO BID 06/14/21 Docusate [Colace] 100 mg PO DAILY PRN #30 cap 07/06/21 HYDROcodone/APAP 10-325MG [Ravenel 10-325] 1 tab PO Q8HR PRN 30 Days #90 tab 07/06/21 Methadone HCl 10 mg PO Q8H 30 Days #90 tablet 07/06/21 Lidocaine [Lidoderm 5% Patch] 1 patch TRANSDERM DAILY 08/13/21
== END ==
LOC: PNWHC3 12:42
PROVIDERS: ATTEND Physician Assistant Medical
DX: M51.36 Other intervertebral disc degeneration, lumbar region (principal); M47.816 Spondylosis without myelopathy or radiculopathy, lumbar region; G89.29 Other chronic pain; Z79.891 Long term (current) use of opiate analgesic; Z88.4 Allergy status to anesthetic agent; Z88.8 Allergy status to other drugs, medicaments and biological substances
CPT/HCPCS: 99211

== ENCOUNTER → 2021-08-27 | Outpatient (CLI) | payer SELFPAY ==
[2021-08-27 16:44] LABS: Basophils % (A) 0 %; Eosinophils # (A) 0.1 k/uL (0-0.7); Eosinophils % (A) 2 %; HCT 42.4 % (39.0-53.0); HGB 13.3 gm/dL (13.0-17.5); Hypochromasia Slight; Lymphocytes # (A) 1.1 k/uL (1.0-4.8); Lymphocytes % (A) 20 %; MCH 27.8 pg (25.0-35.0); MCHC 31.3 g/dL (31.0-37.0); Monocytes # (A) 0.2 k/uL (0-1.0); Monocytes % (A) 4 %; Neutrophils # (A) 3.8 k/uL (1.3-7.7); Neutrophils % (A) 71 %; Platelet Count 179 k/uL (150-450); RBC 4.76 m/uL (4.30-5.90); RDW 13.7 % (11.5-15.5); WBC 5.4 k/uL (3.8-10.6)
[2021-08-27 16:52] LABS: INR 1.1 (<1.2); Partial Thromboplastin Time 25.5 sec (22.0-30.0); Prothrombin Time 11.7 sec (9.0-12.0)
[2021-08-27 23:54] LABS: African American GFR (CKD) 109.9 (60.0-200.0); Anion Gap 10.9 mmol/L (10.00-18.00); BUN/Creat Ratio 20.02 Ratio (12.00-20.00); Blood Urea Nitrogen 18.6 mg/dL (9.0-27.0); Calcium 9.4 mg/dL (8.7-10.3); Carbon Dioxide 26.7 mmol/L (20.0-27.5); Non-African American GFR(CKD) 94.8 (60.0-200.0); Potassium 4.3 mmol/L (3.5-5.5)
== END | disposition home or self-care (01) ==
LOC: LABPAT 15:11
PROVIDERS: ATTEND Orthopaedic Surgery Orthopaedic Surgery of the Spine
DX: Z01.812 Encounter for preprocedural laboratory examination (principal); M48.02 Spinal stenosis, cervical region
CPT/HCPCS: 36415; 80048; 85025; 85610; 85730

== ENCOUNTER → 2021-09-10 | Outpatient (CLI) | payer MEDICARE ==
[~2021-09-10] MED LIST: SODIUM CHLORIDE 0.9% 50 ML IVPB ONE; SODIUM CHLORIDE 0.9% 500 ML 500 ML in EMPTY BAG 1 BAG IV PRN; SOTROVIMAB (EUA) 500 MG in SODIUM CHLORIDE 0.9% 100 ML IVPB ONE
[2021-09-10 13:52] VITALS: TEMP 97.8
[2021-09-10 13:59] VITALS: RESP 16
[2021-09-10 14:38] VITALS: BP 120/76; PULSE 66
== END ==
LOC: PROCWHC3 12:57
PROVIDERS: ATTEND Family Medicine
DX: U07.1 COVID-19 (principal); E11.9 Type 2 diabetes mellitus without complications; Z88.8 Allergy status to other drugs, medicaments and biological substances; Z88.4 Allergy status to anesthetic agent
CPT/HCPCS: 96360; Q0247; M0247

== ENCOUNTER → 2021-09-17 | Outpatient (CLI) | payer MEDICARE, OTHER ==
[2021-09-17 10:24] VITALS: BP 136/79; PULSE 84; RESP 18; TEMP 98.6
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
== END ==
LOC: PNWHC3 09:54
PROVIDERS: ATTEND Physician Assistant Medical
DX: S87.82XS Crushing injury of left lower leg, sequela (principal); M51.36 Other intervertebral disc degeneration, lumbar region; M47.816 Spondylosis without myelopathy or radiculopathy, lumbar region; G89.29 Other chronic pain; Z79.891 Long term (current) use of opiate analgesic; Z88.4 Allergy status to anesthetic agent; Z88.8 Allergy status to other drugs, medicaments and biological substances
CPT/HCPCS: 99211

== ENCOUNTER → 2021-09-23 | Outpatient (CLI) | payer MEDICARE ==
[~2021-09-23] MED LIST changes: +REGADENOSON 0.4 MG/5 ML SYRINGE IV PRN; -SODIUM CHLORIDE 0.9% 50 ML IVPB ONE; -SODIUM CHLORIDE 0.9% 500 ML 500 ML in EMPTY BAG 1 BAG IV PRN; -SOTROVIMAB (EUA) 500 MG in SODIUM CHLORIDE 0.9% 100 ML IVPB ONE
--- NOTE | 2021-09-23 12:30 | NM ---
EXAMINATION TYPE: NM stress lexiscan cardiolite DATE OF EXAM: 09/23/2021 COMPARISON: NONE HISTORY: Abnormal EKG. History of hypertension and diabetes. Presurgical study. TECHNIQUE: After the intravenous administration of 10.2 mCi Tc 99m Sestamibi - Cardiolite resting SP ECT images acquired 75 minutes post injection. The patient received 0.4mg Lexiscan, 25.4 mCi Tc 99m Sestamibi - Stress images obtained [address] injection FINDINGS: Review of stress and rest SPECT images demonstrates no distinct perfusion abnormality. Gated analysi s shows normal wall motion with an estimated left ventricular ejection fraction of 58 %. IMPRESSION: No scintigraphic evidence for reversible ischemia.
--- NOTE | 2021-09-23 14:04 | EST ---
EXERCISE STRESS AGE: 51 SEX: M HT: 6' WT: 275 lbs. PROTOCOL: Lexiscan STAGE: NA DURATION OF EXERCISE: NA HEART RATE REST: 85 BLOOD PRESSURE REST: 141/91 MAXIMUM HEART RATE ACHIEVED: 107 MAXIMUM BLOOD PRESSURE: 162/94 85% MPHR: 143 100% MPHR: 168 METS: NA INDICATIONS: Lexiscan Cardiolite CLINICAL INFORMATION: Baseline rhythm is sinus mechanism, rate of 85, normal axis and intervals; cannot exclude anterior wall myocardial infarction. Baseline blood pressure 141/91 mmHg. Patient received injection of Lexiscan. Electrocardiographic monitoring revealed no evidence of diagnostic ischemic ST deviation. Cardiolite was injected per protocol. CONCLUSION: 1. Nondiagnostic electrocardiograph stress testing. 2. Nuclear images will be reported separately. MMODL / IJN: [id number] /
== END | disposition home or self-care (01) ==
LOC: RADNMMAIN 08:15
PROVIDERS: ATTEND Family Medicine
DX: Z01.818 Encounter for other preprocedural examination (principal); R94.31 Abnormal electrocardiogram [ECG] [EKG]
CPT/HCPCS: 93017; 78452; A9500; J2785

== ENCOUNTER 2021-11-18 11:18 | Day surgery (SDC) | payer MEDICARE ==
[2021-11-16 17:33] VITALS: BMI 37.3
[~2021-11-18 11:18] MED LIST changes: +DEXAMETHASONE SOD PHOSPHATE 4 MG/ML 1 ML VIAL IV ONE; +LIDOCAINE 1% (10MG/ML) FOR IV START INTRADERMA PRN; +MIDAZOLAM 2 MG/2 ML VIAL IV PRN; +ONDANSETRON 4 MG/2 ML VIAL IVP ONE; -REGADENOSON 0.4 MG/5 ML SYRINGE IV PRN; +ceFAZolin 1,000 MG in SODIUM CHLORIDE 0.9% IRRIGATIO 1,000 ML IRRIGATION PRN; +ceFAZolin 3 GM in SODIUM CHLORIDE 0.9% 100 ML IVPB PRN
[2021-11-18 12:34] LABS: Glucose,Whole Blood 144 mg/dL (75-99)
[2021-11-18] MEDS: LACTATED RINGERS 1,000 ML IV SCH (12:37)
[2021-11-18] MEDS ORDERED: NEOSTIGMINE 1 MG/ML 10 ML VIAL ONE (14:16)
[2021-11-18] MEDS ORDERED: PHENYLEPHRINE-0.9% NACL SYG 1,000 MCG/10 ML SYRINGE ONE (14:16)
[2021-11-18] MEDS ORDERED: LIDOCAINE 1% INJ 10MG/ML (20 ML MDV) ONE (14:16)
[2021-11-18] MEDS ORDERED: PROPOFOL 10 MG/ML 20 ML VIAL IV ONE (14:16)
[2021-11-18] MEDS ORDERED: SUCCINYLCHOLINE CHLORIDE VIAL 200 MG/10 ML VIAL IV ONE (14:16)
[2021-11-18] MEDS ORDERED: MIDAZOLAM 2 MG/2 ML VIAL ONE (14:16)
[2021-11-18] MEDS ORDERED: ROCURONIUM 10 MG/ML (5 ML VIAL) IV ONE (14:16)
[2021-11-18] MEDS ORDERED: fentaNYL (PF) 50 MCG/ML 2 ML AMP ONE (14:16)
[2021-11-18] MEDS ORDERED: HYDROmorphone (PF) 1 MG/ML ONE (14:16)
[2021-11-18] MEDS ORDERED: DEXAMETHASONE SOD PHOSPHATE 10 MG/ML 1 ML VIAL ONE (14:16)
[2021-11-18] MEDS ORDERED: KETAMINE 10 MG/ML 20 ML VIAL ONE (14:16)
[2021-11-18] MEDS ORDERED: ePHEDrine 50 MG/ML 1 ML VIAL ONE (14:16)
[2021-11-18] MEDS ORDERED: GLYCOPYRROLATE 0.2 MG/ML 2 ML VIAL ONE (14:16)
[2021-11-18] MEDS ORDERED: LIDOCAINE 0.5%-EPI 1:200,000 50 ML VIAL SQ ONE (14:20)
[2021-11-18] MEDS ORDERED: THROMBIN (BOVINE) 5,000 UNIT VIAL TOPICAL ONE (14:20)
[2021-11-18] MEDS ORDERED: GELATIN SPONGE,ABSORB (LARGE) 1 EACH SPONGE TOPICAL ONE (14:20)
[2021-11-18] MEDS ORDERED: LACTATED RINGERS 1,000 ML IV ONE ×2 (14:56→17:26)
--- NOTE | 2021-11-18 15:52 | XR ---
EXAMINATION TYPE: XR cervical spine 1V DATE OF EXAM: 11/18/2021 COMPARISON: NONE HISTORY: Neck pain. TECHNIQUE: Single portable crosstable lateral view of cervical spine is obtained intraoperatively. FINDINGS: Exam is for surgical planning and not for diagnostic purposes. Metallic pointer localized t o the anterior C4-C5 disc space level is noted. IMPRESSION: As above.
[2021-11-18 17:07] LABS: Glucose,Whole Blood 140 mg/dL (75-99)
[2021-11-18] MEDS ORDERED: BENZOCAINE/MENTHOL LOZENG 1 EACH LOZENGE MUCOUS MEM PRN (18:24)
[2021-11-18] MEDS ORDERED: HYDROmorphone 1 MG/ML 1 ML SYRINGE IVP PRN (18:24)
[2021-11-18] MEDS ORDERED: CYCLOBENZAPRINE 10 MG TAB PO PRN (18:24)
[2021-11-18] MEDS ORDERED: HYDROcodone/APAP 7.5-325MG 1 EACH TAB PO PRN (18:24)
[2021-11-18] MEDS ORDERED: MAGNESIUM HYDROXIDE 2,400 MG/10 ML CUP PO PRN (18:24)
[2021-11-18] MEDS ORDERED: diazePAM 5 MG TAB PO PRN (18:24)
[2021-11-18] MEDS ORDERED: LIDOCAINE 5% PATCH TOPICAL PRN (18:26)
--- NOTE | 2021-11-18 18:48 | P.OP ---
Date of Procedure: 11/18/21 Preoperative Diagnosis: C5 and C6 6 cervical vertebral body fracture malunion, severe cervical stenosis C3 4 C4 5 C5 6 C6 7, upper extremity radiculopathy, neck pain, herniated nucleus pulposis C34 C4 5 C5 6 C6 7 Postoperative Diagnosis: C5 and C6 6 cervical vertebral body fracture malunion, severe cervical stenosis C3 4 C4 5 C5 6 C6 7, upper extremity radiculopathy, neck pain, herniated nucleus pulposis C34 C4 5 C5 6 C6 7 Anesthesia: GETA Pathology: none sent Condition: stable Disposition: PACU Description of Procedure: BRIEF OPERATIVE NOTE Preoperative Diagnosis:C5 and C6 6 cervical vertebral body fracture malunion, severe cervical stenosis C3 4 C4 5 C5 6 C6 7, upper extremity radiculopathy, neck pain, herniated nucleus pulposis C34 C4 5 C5 6 C6 7 Postoperative Diagnosis:C5 and C6 6 cervical vertebral body fracture malunion, severe cervical stenosis C3 4 C4 5 C5 6 C6 7, upper extremity radiculopathy, neck pain, herniated nucleus pulposis C34 C4 5 C5 6 C6 7, Procedure: Takedown of C5 6 vertebral body fracture malunion Open reduction internal fixation of C5 and C6 vertebral body fractures C6 corpectomy for decompression C5 subtotal corpectomy for decompression and fracture fixation Harvesting of local autogenous bone graft for use in grafting for the corpectomy Anterior cervical decompression with discectomy and fusion C3 4 C4 5 C5 6 and C6 7 Placement of anterior peek strut graft from C5 to C7 Placement of interbody allograft bone graft C3 4 C4 5 Application of anterior cervical plate from C3 to C7 Surgeon: Dr. Pitts Special Services Coordinator: Andrea Fortune is present throughout the entire the case persistence during positioning, dissection, exposure, visualization, and all crucial elements of the case as well as closure. Anesthesia: General anesthesia per Dr. Vargas Estimated blood loss: Approximately 250 mL Complications: None apparent Components implanted: Peek interbody strut graft from C5 to C7 measuring 22 mm, Vikos interbody allograft bone graft 2, K2M Orange anterior cervical plate with screws with 1 mL DBX bone putty Disposition: To recovery room in good stable condition. OPERATIVE INDICATIONS The patient has had an injury in June when he slipped and had a violent fall on the ice. He was in the hospital in June 2021. He later presented to my office for initial consultation in July 2021 where he was found have significant neck pain and deformity with evidence of fracture at C5 and C6. There was collapse at that level and we ordered computed tomography scan which confirmed fracture at C5 and C6 with focal kyphosis due to the injury and stenosis. We started treatment with immobilization and plan for surgical intervention. The patient has a number of medical issues and underwent medical evaluation for clearance. Unfortunately the patient had a number of cardiac issues which precluded him from pursuing any significant surgical intervention. He was under medical management for a period time while maintaining immobilization with hard cervical collar for his cervical spine. He is not having any neurologic decline. His medical status and cardiac status was ultimately stabilized however the patient suffered quickly contracted Covid and had a bit of a prolonged course. He ultimately recovered from this and was then able to be cleared for surgical intervention at his cervical spine. During this time he maintained immobilization with hard cervical collar. He does not have any evidence of neurologic decline over this time. The patient did continue to have pain at his neck and some radicular symptoms at his fingers without weakness. We felt that he would's in significant we were position at his cervical spine with severe stenosis with his cervical cord at risk. We felt that surgical intervention with decompression and fixation at the fracture sites best option for him. We discussed various treatment options including surgery, and the patient wishes to proceed with surgery We discussed the risk, patient's alternatives and benefits of surgery including but not limited to, risk of bleeding risk of infection, risk of need for further surgery, risk of decreased, loss of motion, muscle function, malunion nonunion, hardware failure, nerve damage, paralysis, heart attack, and . OPERATIVE SUMMARY After discussing all the risks, patient alternatives and benefits at length, the patient elected to proceed with surgical intervention, signed informed consent, and presented for their procedure. The patient was seen and examined in the preoperative holding area and the surgical site was marked. The patient was given antibiotics and brought to the operating room. The patient was positioned on the operating room table in a supine position being careful to pad any bony prominences and pressure points. The patient was sedated and intubated by anesthesia in standard fashion. Once the airway and C- spine were stabilized the patient's arms were padded and tucked at her side, with her shoulders gently taped. The head was placed in a donut pad with the neck in good neutral alignment and position. We were careful to maintain the patient's cervical spine and good neutral alignment and position throughout. The patient was prepped and draped in a normal standard fashion. An appropriate timeout and keystone protocol performed. We were able to proceed with the surgery. The local wound area was infiltrated with local anesthetic. An incision was made vertically approximately 3-1/2 cm over the appropriate levels from C3 to C7. Dissection was taken down subcutaneously to the level of the platysma which was split in line with its fibers. Dissection was taken with a carotid approach, with the trachea and esophagus medial and the carotid sheath laterally. The dissection was significant copiously and that he had had a hematoma around the site of his fracture which had significant we fibrosed over the past couple of months. This added a great deal of time to the dissection. We dissected down to the anterior surface of the vertebral bodies. Intraoperative x-ray was taken which showed a marker at the appropriate level at C4 5. Dissecting down to the vertebral bodies it was obvious that there was a great deal of bony change with severe collapse at C5 6. There is a great deal of fibrosis within the vertebral bodies at C5 6 and complete obliteration of the disc space. It had essentially had findings of a fibrotic nonunion at the anterior and midportion of the vertebral bodies area over the course of the surgery was able to remove the fibrosis between C5 6 which had collapsed and her multiple Gonzalez fragments and fibrotic tissue within that space. Was serially there had been bony bridge which had united from C5 6 but in a sitting Bierley kyphosis position. I felt we had to take down the malunion in order to provide better alignment at his cervical spine. Most of C6 was obliterated and fill the fibrosis. There was approximately one third of the vertebral body of C5 remaining and I felt we could save that portion of C5 and perform subtotal corpectomy of C5 and a total corpectomy of C6 to allow for grafting and decompression. With the appropriate level positively confirmed, we were able to proceed with decompression and discectomy first at C67 and then at C4 5. As I mentioned above the risks very little inferior aspect of the vertebral body of C6 and I did not feel that we could use the vertebral body of C6 further and chose to perform a complete corpectomy at C6. At C5 I felt we could use the cephalad aspect of vertebral body as an anchor for the strut graft from C5 to C7. I was able to perform excellent decompression discectomy at C4 5 and at C6 7. I performed a corpectomy of C6 and decompression. There was severe stenosis behind each of the levels at C4 5 C5 6 and C6 7 as well as at C3 4. As able get excellent decompression at each of these levels. With the corpectomy at C6 I was able to then take down the malunion at C5 6 posteriorly. This further provided or decompression and further access to decompress the disc at C5 6 posteriorly which was causing further severe stenosis. With this completed I was able to get some realignment and reduction from C5 to C7. I placed interbody allograft bone graft at C4 5. We were able to perform gentle in-line traction at his cervical spine with the help of anesthesia and measure and then place a peek interbody cage which was filled with local autogenous bone graft from C5 to C7 for reduction and fixation of the fracture from C5 to C7. The graft was good alignment and position and had good stability. At C4 5 had good alignment and position and stability. We then turned our attention to the C3 4 level and a discectomy was performed at C3 4. It had severe disc degeneration and large disc herniation posteriorly posterior osteophytes which were taken down. The posterior longitudinal ligament was taken down and provided excellent central and bilateral foraminal decompression. I was able to prepare the bony endplates and measure for the appropriate size interbody graft. Interbody graft was chosen coated with DBX bone putty and placed in good alignment good position with anterior surface flush with the anterior surface of vertebral bodies at C3 4. All of the grafts were checked a nd found to be stable at C34 C4 5 and from C5 to 7. The wound was copiously irrigated and suctioned dry as had been done periodically throughout the case. With the grafts intact, from C3 to C7 and reduction of the fractures completed, I was able to measure and contour and appropriate sized plate. The plate was positioned at the midline over the appropriate levels from C3 to C7. Screw holes were established with a hand drill and drill guide. Screws were placed in good alignment and position with excellent bony purchase. They were seated under the locking device. The construct was checked and found to be stable. Intraoperative x-ray was taken which showed good alignment and position of the implants at the appropriate levels. There was no evidence of any dural tear or leak. Good hemostasis was maintained. The wound was copiously irrigated and suctioned dry as had been done periodically throughout the case. The platysma was closed with absorbable suture. The subcutaneous tissue was closed. The subcuticular tissue was closed with absorbable suture. The wound was cleaned and dried and dressed appropriately. A hard cervical collar was placed appropriately. The patient was woken up by anesthesia, extubated, transferred back gently to their hospital bed and brought to the recovery room in good stable condition. The patient will be admitted to the hospital for appropriate postoperative care, medical management and monitoring. We will continue to follow them closely about the postoperative course.
[2021-11-18] MEDS: SODIUM CHLORIDE 0.9% 1,000 ML IV SCH (19:01)
[2021-11-18] MEDS: HYDROmorphone 0.5 MG/0.5 ML SYRINGE IVP PRN ×2 (19:07→19:15)
--- NOTE | 2021-11-18 19:08 | XR ---
EXAMINATION TYPE: XR cervical spine 1V DATE OF EXAM: 11/18/2021 COMPARISON: NONE HISTORY: Spine surgery TECHNIQUE: Single view FINDINGS: Single lateral view shows placement of plate and screws fusing anteriorly the cervical spin e from C3 to C7. C7 not well seen due to the shoulders. Vertebral have normal alignment. IMPRESSION: No complicating process seen.
[2021-11-18 19:12] LABS: Glucose,Whole Blood 170 mg/dL (75-99)
[2021-11-18 21:10] LABS: Glucose,Whole Blood 198 mg/dL (75-99)
[2021-11-18] MEDS: DOCUSATE 100 MG CAP PO SCH (22:32)
[2021-11-18] MEDS: metFORMIN 500 MG TAB PO SCH (22:32)
[2021-11-18] MEDS: ceFAZolin 3 GM in SODIUM CHLORIDE 0.9% 100 ML IVPB SCH (22:33)
[2021-11-18] MEDS: HYDROcodone/APAP 10-325MG 1 EACH TAB PO PRN (22:33)
[2021-11-19] MEDS: METHADONE 10 MG TAB PO SCH ×2 (01:27→08:30)
[2021-11-19 03:22] VITALS: RESP 18
[2021-11-19] MEDS: HYDROcodone/APAP 10-325MG 1 EACH TAB PO PRN ×2 (05:43→12:06)
[2021-11-19] MEDS: ceFAZolin 3 GM in SODIUM CHLORIDE 0.9% 100 ML IVPB SCH (05:43)
[2021-11-19 06:59] LABS: Glucose,Whole Blood 170 mg/dL (75-99)
[2021-11-19] MEDS: metFORMIN 500 MG TAB PO SCH (08:29)
[2021-11-19] MEDS: DOCUSATE 100 MG CAP PO SCH (08:32)
[2021-11-19] MEDS ORDERED: lisinopriL 10 MG TAB PO SCH (09:00)
[2021-11-19] MEDS ORDERED: amLODIPine 5 MG TAB PO SCH (09:00)
[2021-11-19] MEDS ORDERED: SENNOSIDES-DOCUSATE SODIUM 1 EACH TAB PO SCH ×2 (09:00)
[2021-11-19 09:07] VITALS: BP 126/75; PULSE 89; TEMP 98.3
--- NOTE | 2021-11-19 10:34 | P.DS ---
Providers Date of admission: 11/18/21 Attending physician: Ninfa Pitts Primary care physician: [facility] Course: The patient presented on the day of admission as per their operative note. The patient had sustained a fracture at his cervical spine at C5 and 6 back in June after having is significant fall on the ice. The patient also he went on to have a malunion with continued pain in his neck with some upper extremity radiculopathy without focal neurologic loss. Yesterday he underwent anterior cervical takedown of the malunion with open reduction internal fixation of the fracture at C5 and 6 and fusion from C3 to C7 for his cervical stenosis and appropriate realignment for his cervical kyphosis due to his fracture. The patient feels that he is doing well. He is already been up out of bed and is tolerating his soft diet. He is voiding freely. His pain is well-controlled. He says his arms are feeling better today. He is not having any new neurologic change. Physical Exam The incision site is clean dry and intact. There is no erythema no drainage. There is no purulence no evidence of infection. His neck is soft and supple. His collar is intact. Abdomen soft and nontender. Chest has good excursion with deep inspiration and expiration. The patient has active and passive range of motion intact at the upper and lower extremities. There is no acute change in neurologic status. He has good strength in his bilateral upper extremities hands and fingers. He is ambulatory in his room. Hospital Course Postoperative day #1 status post anterior cervical decompression with discectomy and fusion C3 to C7 with takedown of malunion at C5 6 and over reduction internal fixation with corpectomy of C6. The patient has been making good progress postoperatively. His collar is intact and he says he feels stable. He feels his arms are making improvements. They have completed the prophylactic antibiotics without any signs or symptoms of infection. The patient has been able to advance their diet, and is tolerating diet adequately. The pain was initially controlled with IV medications and is now controlled appropriately with oral medications. The patient has been able to increase their mobilization. The patient has progressed appropriately. I think they are in good stable condition for discharge today. They will be sent home with appropriate prescriptions. I answered their questions to the best of my ability in a language that they can understand and they are agreeable with the plan. He should keep his hard collar intact at all times. Even while he showers she should change to an alternate collar and wear that in the shower. He should use his collar while he sleeps. He is instructed to avoid any significant activity but he may ambulate as he tolerates. They will follow up as directed in 1 week. Patient Condition at Discharge: Good Plan - Discharge Summary Discharge Rx Participant: Yes New Discharge Prescriptions: New Cyclobenzaprine [Flexeril] 10 mg PO TID PRN #60 tab PRN Reason: Spasms No Action Docusate [Colace] 100 mg PO BID #60 cap Lidocaine [Lidoderm 5% Patch] 1 patch TRANSDERM QAM PRN 30 Days #30 patch PRN Reason: Pain HYDROcodone/APAP 10-325MG [[place] 10-325] 1 tab PO Q6HR PRN 30 Days #110 tab PRN Reason: Pain Methadone HCl 10 mg PO Q8H amLODIPine BESYLATE/BENAZEPRIL [amLODIPine BESYLATE/BENAZEPRIL 5-10 mg] 1 cap PO QAM metFORMIN HCL [Glucophage] 1,000 mg PO BID Ibuprofen [Motrin Ib] 200 mg PO Q8H PRN PRN Reason: Pain Discharge Medication List amLODIPine BESYLATE/BENAZEPRIL [amLODIPine BESYLATE/BENAZEPRIL 5-10 mg] 1 cap PO QAM 03/09/21 [History] metFORMIN HCL [Glucophage] 1,000 mg PO BID 06/14/21 [History] Docusate [Colace] 100 mg PO BID #60 cap 08/19/21 [Rx] Lidocaine [Lidoderm 5% Patch] 1 patch TRANSDERM QAM PRN 30 Days #30 patch 09/17/21 [Rx] Ibuprofen [Motrin Ib] 200 mg PO Q8H PRN 11/11/21 [History] HYDROcodone/APAP 10-325MG [[place] 10-325] 1 tab PO Q6HR PRN 30 Days #110 tab 11/12/21 [Rx] Methadone HCl 10 mg PO Q8H 11/16/21 [History] Cyclobenzaprine [Flexeril] 10 mg PO TID PRN #60 tab 11/19/21 [Rx] Follow up Appointment(s)/Referral(s): Ninfa Pitts DO [Doctor of Osteopathic Medicine] - 1 Week Activity/Diet/Wound Care/Special Instructions: KEEP HARD CERVICAL COLLAR INTACT AT ALL TIMES. THE PATIENT MAY CHANGE TO AN ALTERNATE HARD CERVICAL COLLAR WHILE IN THE SHOWER. HE SHOULD SLEEP WITH HIS HARD CERVICAL COLLAR INTACT. Keep site clean. May shower with waterproof Tegaderm intact. Do not soak in a tub. After 72 hours postoperatively, patient May remove dressing and then may shower with area uncovered. Leave glue intact and allow it to fray off on its own. May ambulate as tolerated. Avoid heavy or rigorous activity. No repetitive bending twisting or lifting. No overhead work. Discharge Disposition: HOME SELF-CARE
[2021-11-19 10:57] LABS: Glucose,Whole Blood 166 mg/dL (75-99)
[2021-11-19] MEDS: SODIUM CHLORIDE 0.9% 1,000 ML IV SCH (11:53)
[2021-11-19] MEDS: LACTATED RINGERS 1,000 ML IV SCH (11:53)
== END 2021-11-19 13:15 | disposition home or self-care (01) ==
LOC: OR 11:18 → 4SSUR 18:30 → OR 11-19 13:15
PROVIDERS: ATTEND Orthopaedic Surgery Orthopaedic Surgery of the Spine
DX: S12.400A Unspecified displaced fracture of fifth cervical vertebra, initial encounter for closed fracture (principal); S12.500A Unspecified displaced fracture of sixth cervical vertebra, initial encounter for closed fracture; M48.02 Spinal stenosis, cervical region; M50.11 Cervical disc disorder with radiculopathy, high cervical region; M40.292 Other kyphosis, cervical region; W19.XXXA Unspecified fall, initial encounter; E11.9 Type 2 diabetes mellitus without complications; I10 Essential (primary) hypertension; R41.3 Other amnesia; M21.379 Foot drop, unspecified foot; Z86.16 Personal history of COVID-19; Z79.84 Long term (current) use of oral hypoglycemic drugs; Z79.899 Other long term (current) drug therapy; Z83.3 Family history of diabetes mellitus; Z90.49 Acquired absence of other specified parts of digestive tract
CPT/HCPCS: 22551; 22552 ×3; 20930; 20936; 63081; 86900; 86901; 86850; 72020; 22854 ×2; 63082; C1713 ×2; C1762 ×2; J2250; J0330; J1100; J2710; J0690 ×3; J2405; J2001; J3010; S0109; J1170 ×2; J2370; J2704

== ENCOUNTER → 2022-01-07 | Outpatient (CLI) | payer OTHER ==
[2022-01-07 13:07] VITALS: BP 163/95; PULSE 105; RESP 16; TEMP 98.3
--- NOTE | 2022-01-07 13:20 | P.PN ---
Subjective Progress Note Date: 01/07/22 Principal diagnosis: A 51 yr old male with a history of severe and chronic neck pain secondary to degenerative disc diseases and spondylosis with facet arthropathy presents today for medication refills. Pain level is 8 out of 10 in intensity, stabbing in character in the middle and lower aspects of the cervical spine as well as pain in the left lower extremity which is dull, achy, sore in character without radiation of pain. Pain is provoked by cervical spine movements and weightbearing on the left lower extremity. Pain is alleviated with medications, topicals, injections, heat, physical therapy which will start in February 2022, daily home stretching regimen, use of a hard c-collar brace which is permanent until February 2022, repositioning and rest. Patient is currently on methadone 10 mg #90, [place] 10/325 mg #110, lidocaine patch when necessary Patient denies any side effects of the medication(s), denies excessive drowsiness or sleepiness, denies suicidal ideation and reports that the current pain medication is helping to control the pain and improve activities of daily living. Patient denies any motor or sensory deficits. Patient denies any fever or night sweats, denies any change in the bowel movements or urination. Physical Examination: -Constitutional: Cooperative. Not in acute distress . -HEENT: Neck is supple. No lymphadenopathy. No thyromegaly. Normal thyroid size. Eyes: No ptosis , no icterus, no photophobia. ENT: No auditory deficits. Normal oropharynx. No Thrush. - Respiratory: Chest clear to auscultations bilaterally. No wheezing. No rhonchi. - Cardiovascular: Regular rate and rhythm. S1 / S2 , no S3 , no S4. - Gastrointestinal: Abdomen soft no tenderness. Bowel sounds positive in all four quadrants. No organomegaly. - Genitourinary: Deferred. - Neurologic: Cranial nerve II to XII intact. No focal neurological deficits. - Psychatric: Alert & oriented x 3. Matching mood & appropriate affect. Judgment and insight intact. - Lymphatic: No Lymphadenopathy. - Musculoskeletal: Cervical spine: Hard C collar in place. 4" vertical incisional scar Muscle bulk/ tone/ strength in the bilateral upper extremities normal Vertebral body tenderness to palpation over C3, C4, C5, C6, C7 Facet loading test positive Thoracic spine Muscle bulk / tone/ strength in the bilateral paraspinal muscles normal Vertebral body tender to palpation over Facet loading test positive Lumbar spine: Motor bulk/ tone/ strength lower extremities , thigh and legs : 5/5 Deep tendon reflexes : Normal Knee Jerk. Normal Ankle Jerk . Vertebral body tenderness to palpation over Lumbar Facet Loading Test positive Straight Leg Raise: positive at 30 degrees right side/ left side Gaenslen's Test positive Sacral spine : Severe tenderness over the Sacroiliac joint: right side / left side Range of motion: Flexion of the lumbar spine <60 degrees Range of motion: Extension of the lumbar spine <20 degrees Gaenslen's Test positive Faustino's Test positive Jaimee test: positive right side / left side Thigh Thrust Test Sacral Thrust Test Assessment and plan: Chronic neck pain secondary to degenerative disc disease , spondylosis with facet arthropathy without myelopathy Chronic and current use of high-risk medication (Opioids). The patient was counseled about risk of opioid use, psychological risk associated with opioids and was orally counseled to not overuse , divert or sell medications. Pt is to store medication in a safe location. The patient is counseled against driving while using narcotic medications and also not to use alcohol or any illicit recreational drugs. Patient verbalized understanding that the lack of compliance will result in failure to renew narcotic prescription(s) as well as possible discharge from the clinic Diagnoses, prognosis and treatment options including but not limited to physical therapy, surgical interventions, interventional therapies and medication management including narcotics and adjuvant medication were discussed. All patient questions answered MAPS reviewed and it was appropriate. Urine for UDS collected today, 01/07/22 Prescription refill for Methadone 10mg #90, [place] 10/325mg #110 and Lidocaine patches prn w 1 refill I have spent 31 minutes on patient care today. Dr Vargas was available by phone for the evaluation of this patient. The time was used to review the medical records including relevant urine studies and Prescription history (MAPs), review of the available imaging, evaluation and examination of the patient, coordination of care with the medical staff and if applicable referring physicians, as well as creation of the medical record Objective - Vital Signs Vital signs: Vital Signs Temp 98.3 F 01/07/22 12:56 Pulse 105 H 01/07/22 12:56 Resp 16 01/07/22 12:56 BP 163/95 01/07/22 12:56 Pulse Ox 97 01/07/22 12:56 FiO2 Intake & Output 01/06/22 01/07/22 01/07/22 18:59 06:59 18:59 Weight 117.934 kg PQRS Measure Charge Sheet Mode of Arrival: Ambulatory - Pain Location Neck Non-Pharmacological Interventions: Heat, Home Exercise, Inactivity, Position/Reposition, Stretching Pharmacological Interventions: PRN Medication, Scheduled Medication, Topical Medication PQRS Narrative: Smoking Status Never smoker Narcotic Agreement Date Signed 03/09/21 Blood Pressure 163/95 Pain Intensity [Neck] 8 Scale Used Numeric (1 - 10) Hx Alcohol Use (MH) No Home Medications: Ambulatory Orders amLODIPine BESYLATE/BENAZEPRIL [amLODIPine BESYLATE/BENAZEPRIL 5-10 mg] 1 cap PO QAM 03/09/21 metFORMIN HCL [Glucophage] 1,000 mg PO BID 06/14/21 Docusate [Colace] 100 mg PO BID #60 cap 08/19/21 Lidocaine [Lidoderm 5% Patch] 1 patch TRANSDERM QAM PRN 30 Days #30 patch 09/17/21 Ibuprofen [Motrin Ib] 200 mg PO Q8H PRN 11/11/21 HYDROcodone/APAP 10-325MG [[place] 10-325] 1 tab PO Q6HR PRN 30 Days #110 tab 11/12/21 Methadone HCl 10 mg PO Q8H 11/16/21 Cyclobenzaprine [Flexeril] 10 mg PO TID PRN #60 tab 11/19/21
== END ==
LOC: PNWHC3 12:22
PROVIDERS: ATTEND Specialist
DX: M50.30 Other cervical disc degeneration, unspecified cervical region (principal); M47.812 Spondylosis without myelopathy or radiculopathy, cervical region; G89.29 Other chronic pain; Z79.891 Long term (current) use of opiate analgesic; Z88.4 Allergy status to anesthetic agent; Z88.8 Allergy status to other drugs, medicaments and biological substances
CPT/HCPCS: 80307; 99212

== ENCOUNTER → 2022-01-08 | Outpatient (CLI) | payer MEDICARE ==
--- NOTE | 2022-01-08 14:24 | FL ---
"EXAMINATION TYPE: FL barium swallow w video DATE OF EXAM: 01/08/2022 MODIFIED SWALLOW / DEGLUTITION STUDY CLINICAL HISTORY: Dysphagia. History of neck fracture and long segment fusion. TECHNIQUE: Deglutition study is performed utilizing thin liquid barium, honey and nectar thick liqui d barium, barium thick pudding, and barium coated cracker. 2 minutes 7 seconds of fluoro time and 36 64 images obtained. COMPARISON: None. FINDINGS: There is anterior fusion plate with metallic disc material C3-C5 levels with fusion plate e xtending to at least T1 level and metallic vertebral spacer running at least C6-C7 levels only partia lly imaged. There is marked prevertebral soft tissue swelling at this level with anterior displacemen t of the hypopharyngeal airway. The oral and pharyngeal phases show satisfactory initiation and propa gation with all modalities tested. Normal mastication is seen with solid modalities tested. There is one episode of transient penetration with thin liquid barium. No aspiration is observed. No signific ant pharyngeal residue was appreciated. IMPRESSION: Marked prevertebral soft tissue swelling with mass effect pushing the hypopharyngeal airw ay and the proximal esophagus anteriorly. No aspiration observed. Please refer to speech therapist notes for further details if necessary. A Yellow level critical message alert has been initiated for Cesar Collins MD via the [employer] 36 0 | Critical Results System on 01/08/2022 2:21 PM. This message alert has been sent to Cesar Collins MD via the preferences provided by the clinician for the receipt of Radiology Critical Findings. Mess age ID [id number]."
== END | disposition home or self-care (01) ==
LOC: RADFLMAIN 11:05
PROVIDERS: ATTEND Otolaryngology
DX: R13.10 Dysphagia, unspecified (principal); M79.89 Other specified soft tissue disorders
CPT/HCPCS: 74230

== ENCOUNTER → 2022-03-04 | Outpatient (CLI) | payer OTHER ==
[2022-03-04 13:25] VITALS: BP 172/109; PULSE 78; RESP 18; TEMP 98.1
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
== END ==
LOC: PNWHC3 12:19
PROVIDERS: ATTEND Specialist
DX: M51.36 Other intervertebral disc degeneration, lumbar region (principal); M47.816 Spondylosis without myelopathy or radiculopathy, lumbar region; G89.29 Other chronic pain; Z79.891 Long term (current) use of opiate analgesic; Z88.4 Allergy status to anesthetic agent; Z88.6 Allergy status to analgesic agent
CPT/HCPCS: 99211

== ENCOUNTER → 2022-07-14 | Outpatient (CLI) | payer MEDICARE, OTHER ==
[2022-07-14 14:13] VITALS: BP 164/113; PULSE 100; RESP 16; TEMP 98.4
--- NOTE | 2022-07-14 14:27 | P.PAINPG ---
PQRS Measure Charge Sheet Comment: A 51 yr old male with a history of severe and chronic low back pain secondary to lumbar DDD and spondylosis with facet arthropathy without myelopathy presents today for medication refills. Pain level is currently at 8 /10 in intensity, constant, localized in the lumbar spine, L knee and L foot, dull in character without radiation. Pain is provoked by ice, cold weather, over activity. Pain is alleviated with medications, use of a cane for ambulation, reclining, repositioning and rest. Patient is currently on [place] 10/325mg, Methadone 10mg, Ibuprofen, Flexeril Patient denies any side effects of the medication(s), denies excessive drowsiness or sleepiness, denies suicidal ideation and reports that the current pain medication is helping to control the pain and improve activities of daily living. Patient denies any motor or sensory deficits. Patient denies any fever or night sweats, denies any change in the bowel movements or urination. Physical Examination: -Constitutional: Cooperative. Not in acute distress . - Neurologic: Cranial nerve II to XII intact. No focal neurological deficits. - Psychatric: Alert & oriented x 3. Matching mood & appropriate affect. Judgment and insight intact. - Musculoskeletal: Cervical spine: Muscle bulk/ tone/ strength in the bilateral upper extremities normal Vertebral body tenderness to palpation over Spurling test positive Distraction test positive Facet loading test positive Thoracic spine Muscle bulk / tone/ strength in the bilateral paraspinal muscles normal Vertebral body tender to palpation over Facet loading test positive Lumbar spine: Motor bulk/ tone/ strength lower extremities , thigh and legs : 5/5 Deep tendon reflexes : Normal Knee Jerk. Normal Ankle Jerk . Vertebral body tenderness to palpation over Lumbar Facet Loading Test positive Straight Leg Raise: positive at 30 degrees right side/ left side Gaenslen's Test positive Sacral spine : Severe tenderness over the Sacroiliac joint: right side / left side Range of motion: Flexion of the lumbar spine <60 degrees Range of motion: Extension of the lumbar spine <20 degrees Gaenslen's Test positive Jaimee test: positive right side / left side Thigh Thrust Test Sacral Thrust Test Imaging: EKG from May 2022 reviewed Assessment and plan: Chronic low back pain secondary to lumbar degenerative disc disease, spondylosis with facet arthropathy without myelopathy Chronic and current use of high-risk medication (Opioids). The patient was counseled about risk of opioid use, psychological risk associated with opioids and was orally counseled to not overuse , divert or sell medications. Pt is to store medication in a safe location. The patient is counseled against driving while using narcotic medications and also not to use alcohol or any illicit recreational drugs. Patient verbalized understanding that the lack of compliance will result in failure to renew narcotic prescription(s) as well as possible discharge from the clinic Diagnoses, prognosis and treatment options including but not limited to physical therapy, surgical interventions, interventional therapies and medication management including narcotics and adjuvant medication were discussed. All patient questions answered MAPS reviewed and it was appropriate. Prescription refill for [place] 10/325mg #110, Methadone 10mg #90, Ibuprofen, Flexeril w 1 RF I have spent less than 30 minutes on patient care today. Dr Vargas was available by phone for the evaluation of this patient. The time was used to review the medical records including relevant urine studies and Prescription history (MAPs), review of the available imaging, evaluation and examination of the patient, coordination of care with the medical staff and if applicable referring physicians, as well as creation of the medical record PQRS Narrative: Smoking Status Never smoker Narcotic Agreement Date Signed 05/19/22 Hx Alcohol Use (MH) No Home Medications: Ambulatory Orders amLODIPine BESYLATE/BENAZEPRIL [amLODIPine BESYLATE/BENAZEPRIL 5-10 mg] 1 cap PO QAM 03/09/21 metFORMIN HCL [Glucophage] 1,000 mg PO BID 06/14/21 Docusate [Colace] 100 mg PO BID #60 cap 08/19/21 Lidocaine [Lidoderm 5% Patch] 1 patch TRANSDERM QAM PRN 30 Days #30 patch 01/07/22 Cyclobenzaprine [Flexeril] 10 mg PO TID PRN 30 Days #60 tab 07/14/22 HYDROcodone/APAP 10-325MG [[place] 10-325] 1 tab PO Q6HR PRN 30 Days #110 tab 07/14/22 HYDROcodone/APAP 10-325MG [[place] 10-325] 1 tab PO Q6HR PRN 30 Days #110 tab 07/14/22 Ibuprofen [Motrin Ib] 200 mg PO Q8H PRN 30 Days #90 tab 07/14/22 Methadone HCl 10 mg PO TID 30 Days #90 tab 12/07/22 Methadone HCl 10 mg PO TID 30 Days #90 tablet 07/14/22 Controlled Substance Measures - Controlled Substance Measures Is patient prescribed a controlled substance at discharge?: Yes When asked, does pt state using other controlled substances?: No If prescribed controlled substance>3 days was MAPS reviewed?: Yes If Rx opioid, was Start Talking consent form obtained?: Yes Was information provided regarding opioid addiction?: Yes
== END ==
LOC: PNWHC3 13:41
PROVIDERS: ATTEND Specialist
DX: Z51.81 Encounter for therapeutic drug level monitoring (principal); M47.816 Spondylosis without myelopathy or radiculopathy, lumbar region; M51.36 Other intervertebral disc degeneration, lumbar region; G89.29 Other chronic pain; Z79.891 Long term (current) use of opiate analgesic; Z88.8 Allergy status to other drugs, medicaments and biological substances
CPT/HCPCS: 80307; 99212; G0482

== ENCOUNTER → 2022-07-26 | Outpatient (CLI) | payer MEDICARE ==
[2022-07-26 10:15] LABS: African American GFR (CKD) >90 (>60 ml/min/1.73 sqM); Blood Urea Nitrogen 17 mg/dL (9-20); Non-African American GFR(CKD) >90 (>60 ml/min/1.73 sqM)
--- NOTE | 2022-07-26 10:59 | CT ---
EXAMINATION TYPE: CT soft tissue neck w con DATE OF EXAM: 07/26/2022 COMPARISON: Cervical spine 07/28/2021 HISTORY: Localized swelling, post op. CT DLP: 936 mGycm CONTRAST: Patient injected with 70ml mL of Isovue 300. TECHNIQUE: Axial images at 3 mm thick sections. Reconstructed images in the coronal plane and sagitt al plane are reviewed. FINDINGS: Limited CT sections are obtained the lung apices. The lung apices appear clear. CT neck: The torus tubarius and fossa of Rosenmuller are normal. Developmental Therapist spaces are normal. Para nasal sinuses and mastoid air cells are clear. Parotid glands appear normal and symmetrical. Submandibular glands, are normal. Parapharyngeal spac es are normal. No suspicious adenopathy is evident. Some mild postsurgical changes with subcutaneous air is present within the bilateral tonsillar region . Diffuse soft tissue swelling to the tonsillar pillars may be present. No underlying hematoma or abs cess formation is identified. The hypopharynx appears within normal limits. Vocal cord level appear symmetrical. Subglottic airway is unremarkable. Thyroid as visualized is normal. Osseous structures are normal. Anterior cervical fusion changes are evident see 3 through C7. Posteri or endplate spurring is noted through the upper and mid cervical spine IMPRESSIONS: 1. There is a mild diffuse soft tissue swelling within the tonsillar pillar region. Subcutaneous emph ysema is present within these regions. No abscess formation or hematoma identified. Follow-up can be performed as clinically indicated.
== END | disposition home or self-care (01) ==
LOC: RADCTMAIN 09:30
PROVIDERS: ATTEND Otolaryngology
DX: J43.9 Emphysema, unspecified (principal); R22.1 Localized swelling, mass and lump, neck
CPT/HCPCS: 82565; 84520; 70491; 36415; Q9967

== ENCOUNTER → 2022-09-08 | Outpatient (CLI) | payer MEDICARE ==
[2022-09-08 13:50] VITALS: BP 149/89; PULSE 88; RESP 16
--- NOTE | 2022-09-08 14:20 | P.PAINPG ---
PQRS Measure Charge Sheet Comment: A 51 yr old male with a history of severe and chronic LBP secondary to lumbar DDD and spondylosis with facet arthropathy without myelopathy presents today for medication refills. Pain level is provoked at 8 /10 in intensity, constant, localized in the lumbar spine, achy in character w shooting towards the BLEs associated w occasional numbness & tingling. Pain is provoked by bending, twisting, sitting/ standing/ walking for periods of 10 min or more. Pain is alleviated with medications, use of a cane and LSO for ambulatory assistance repositioning and rest. Patient is currently on Flexeril, [place], Motrin Patient denies any side effects of the medication(s), denies excessive drowsiness or sleepiness, denies suicidal ideation and reports that the current pain medication is helping to control the pain and improve activities of daily living. Patient denies any motor or sensory deficits. Patient denies any fever or night sweats, denies any change in the bowel movements or urination. Physical Examination: -Constitutional: Cooperative. Not in acute distress . - Neurologic: Cranial nerve II to XII intact. No focal neurological deficits. - Psychatric: Alert & oriented x 3. Matching mood & appropriate affect. Judgment and insight intact. - Musculoskeletal: Cervical spine: Muscle bulk/ tone/ strength in the bilateral upper extremities normal Vertebral body tenderness to palpation over Spurling test positive Distraction test positive Facet loading test positive Thoracic spine Muscle bulk / tone/ strength in the bilateral paraspinal muscles normal Vertebral body tender to palpation over Facet loading test positive Lumbar spine: Motor bulk/ tone/ strength lower extremities , thigh and legs : 5/5 Deep tendon reflexes : Normal Knee Jerk. Normal Ankle Jerk . Vertebral body tenderness to palpation over L4, L5 Lumbar Facet Loading Test positive Straight Leg Raise: positive at 30 degrees right side/ left side Gaenslen's Test positive Sacral spine : Severe tenderness over the Sacroiliac joint: right side / left side Range of motion: Flexion of the lumbar spine <60 degrees Range of motion: Extension of the lumbar spine <20 degrees Gaenslen's Test positive Jaimee test: positive right side / left side Thigh Thrust Test Sacral Thrust Test Assessment and plan: Chronic LBP secondary to lumbar DDD, spondylosis with facet arthropathy without myelopathy Chronic and current use of high-risk medication (Opioids). The patient was counseled about risk of opioid use, psychological risk associated with opioids and was orally counseled to not overuse , divert or sell medications. Pt is to store medication in a safe location. The patient is counseled against driving while using narcotic medications and also not to use alcohol or any illicit recreational drugs. Patient verbalized understanding that the lack of compliance will result in failure to renew narcotic prescription(s) as well as possible discharge from the clinic Diagnoses, prognosis and treatment options including but not limited to physical therapy, surgical interventions, interventional therapies and medication management including narcotics and adjuvant medication were discussed. All patient questions answered MAPS reviewed and it was appropriate. UDS from 07/14/22 reveiwed and consistent. Prescription refill for [place] 10/325mg #110, Methadone 10mg #90, Flexeril & Motrin prn I have spent less than 30 minutes on patient care today. Dr Vargas was available by phone for the evaluation of this patient. The time was used to review the medical records including relevant urine studies and Prescription history (MAPs), review of the available imaging, evaluation and examination of the patient, coordination of care with the medical staff and if applicable referring physicians, as well as creation of the medical record PQRS Narrative: Smoking Status Never smoker Narcotic Agreement Date Signed 05/19/22 Hx Alcohol Use (MH) No Home Medications: Ambulatory Orders amLODIPine BESYLATE/BENAZEPRIL [amLODIPine BESYLATE/BENAZEPRIL 5-10 mg] 1 cap PO QAM 03/09/21 metFORMIN HCL [Glucophage] 1,000 mg PO BID 06/14/21 Docusate [Colace] 100 mg PO BID #60 cap 08/19/21 Lidocaine [Lidoderm 5% Patch] 1 patch TRANSDERM QAM PRN 30 Days #30 patch 01/07/22 Cyclobenzaprine [Flexeril] 10 mg PO TID PRN 30 Days #60 tab 07/14/22 HYDROcodone/APAP 10-325MG [[place] 10-325] 1 tab PO Q6HR PRN 30 Days #110 tab 07/14/22 HYDROcodone/APAP 10-325MG [[place] 10-325] 1 tab PO Q6HR PRN 30 Days #110 tab 07/14/22 Ibuprofen [Motrin Ib] 200 mg PO Q8H PRN 30 Days #90 tab 07/14/22 Methadone HCl 10 mg PO TID 30 Days #90 tab 07/14/22 Methadone HCl 10 mg PO TID 30 Days #90 tablet 07/14/22 Controlled Substance Measures - Controlled Substance Measures Is patient prescribed a controlled substance at discharge?: Yes When asked, does pt state using other controlled substances?: No If prescribed controlled substance>3 days was MAPS reviewed?: Yes If Rx opioid, was Start Talking consent form obtained?: Yes If opioid is for acute pain is fill amount 7 days or less?: No Was information provided regarding opioid addiction?: Yes
== END ==
LOC: PNWHC3 13:24
PROVIDERS: ATTEND Specialist
DX: M47.816 Spondylosis without myelopathy or radiculopathy, lumbar region (principal); G89.29 Other chronic pain; Z79.891 Long term (current) use of opiate analgesic; Z88.8 Allergy status to other drugs, medicaments and biological substances
CPT/HCPCS: 99211

== ENCOUNTER → 2023-01-27 | Outpatient (CLI) | payer MEDICARE, OTHER ==
[2023-01-27 12:55] VITALS: BP 171/98; PULSE 110; RESP 18; TEMP 99.7
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
== END ==
LOC: PNWHC3 11:20
PROVIDERS: ATTEND Specialist
DX: M51.36 Other intervertebral disc degeneration, lumbar region (principal); M47.816 Spondylosis without myelopathy or radiculopathy, lumbar region; G89.29 Other chronic pain; Z79.891 Long term (current) use of opiate analgesic; Z88.4 Allergy status to anesthetic agent; Z88.8 Allergy status to other drugs, medicaments and biological substances; Z51.81 Encounter for therapeutic drug level monitoring
CPT/HCPCS: 93005; 99211

== ENCOUNTER → 2023-04-13 | Outpatient (CLI) | payer OTHER, MEDICARE ==
[2023-04-13 12:16] VITALS: BP 162/105; PULSE 111; RESP 15; TEMP 98.6
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
== END ==
LOC: PNWHC3 10:16
PROVIDERS: ATTEND Specialist
DX: M51.36 Other intervertebral disc degeneration, lumbar region (principal); M47.816 Spondylosis without myelopathy or radiculopathy, lumbar region; G89.29 Other chronic pain; Z79.891 Long term (current) use of opiate analgesic; Z88.8 Allergy status to other drugs, medicaments and biological substances
CPT/HCPCS: 99211

== ENCOUNTER → 2023-06-08 | Outpatient (CLI) | payer OTHER, MEDICARE ==
[2023-06-08 11:08] VITALS: BP 183/116; PULSE 97; RESP 15; TEMP 98.2
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
== END ==
LOC: PNWHC3 10:18
PROVIDERS: ATTEND Specialist
DX: M51.36 Other intervertebral disc degeneration, lumbar region (principal); M47.816 Spondylosis without myelopathy or radiculopathy, lumbar region; G89.29 Other chronic pain; M54.50 Low back pain, unspecified; Z79.891 Long term (current) use of opiate analgesic; Z88.4 Allergy status to anesthetic agent; Z88.8 Allergy status to other drugs, medicaments and biological substances
CPT/HCPCS: 99211

== ENCOUNTER → 2023-08-11 | Outpatient (CLI) | payer OTHER, MEDICARE ==
[2023-08-11 11:50] VITALS: BP 151/113; PULSE 119; RESP 16; TEMP 98
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
== END ==
LOC: PNWHC3 10:51
PROVIDERS: ATTEND Specialist
DX: M51.36 Other intervertebral disc degeneration, lumbar region (principal); M47.816 Spondylosis without myelopathy or radiculopathy, lumbar region; G89.29 Other chronic pain; Z79.891 Long term (current) use of opiate analgesic; Z88.8 Allergy status to other drugs, medicaments and biological substances; Z88.4 Allergy status to anesthetic agent
CPT/HCPCS: 99212

== ENCOUNTER 2023-08-16 08:40 | Emergency (ER) | payer OTHER, MEDICARE ==
[2023-08-16] MEDS ORDERED: SODIUM CHLORIDE 0.9% 1,000 ML IV STA (09:13)
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
[2023-08-16 09:53] LABS: Basophils % (A) 0 %; Eosinophils % (A) 0 %; HCT 45.1 % (39.0-53.0); HGB 14.9 gm/dL (13.0-17.5); Lymphocytes # (A) 0.5 k/uL (1.0-4.8); Lymphocytes % (A) 6 %; MCH 28.7 pg (25.0-35.0); MCV 86.9 fL (80.0-100.0); Monocytes # (A) 0.5 k/uL (0-1.0); Monocytes % (A) 5 %; Neutrophils # (A) 7.3 k/uL (1.3-7.7); Neutrophils % (A) 87 %; Platelet Count 144 k/uL (150-450); RBC 5.19 m/uL (4.30-5.90); RDW 13.3 % (11.5-15.5); WBC 8.4 k/uL (3.8-10.6)
[2023-08-16 10:04] LABS: ALT 23 U/L (4-49); AST 24 U/L (17-59); African American GFR (CKD) >90 (>60 ml/min/1.73 sqM); Albumin 4.2 g/dL (3.5-5.0); Alkaline Phosphatase 97 U/L (38-126); Anion Gap 15 mmol/L; Blood Urea Nitrogen 17 mg/dL (9-20); Calcium 8.7 mg/dL (8.4-10.2); Carbon Dioxide 22 mmol/L (22-30); Chloride 96 mmol/L (98-107); Glucose 424 mg/dL (74-99); Magnesium 1.8 mg/dL (1.6-2.3); Non-African American GFR(CKD) 89 (>60 ml/min/1.73 sqM); Potassium 3.9 mmol/L (3.5-5.1); Sodium 133 mmol/L (137-145); Total Protein 8.2 g/dL (6.3-8.2)
[2023-08-16 10:06] LABS: INR 1.2 (<1.2); Partial Thromboplastin Time 26.1 sec (22.0-30.0); Prothrombin Time 12.4 sec (10.0-12.5)
--- NOTE | 2023-08-16 10:16 | CT ---
EXAMINATION TYPE: CT brain wo con CT DLP: 1195.4 mGycm, Automated exposure control for dose reduction was used. DATE OF EXAM: 08/16/2023 10:06 AM COMPARISON: None. CLINICAL INDICATION:Male, 52 years old with history of headache, headache and fevers TECHNIQUE: Brain: Axial CT images of the brain were obtained with coronal and sagittal reformats created and rev iewed. Contrast used: None. Oral contrast used: None. FINDINGS: Extra-axial spaces: No abnormal extra-axial fluid collections. Ventricular system: No evidence of hydrocephalus. Asymmetric appearance of the occipital horns of the lateral ventricles, very likely developmental. Cerebral parenchyma: No increased attenuation to suggest acute intraparenchymal hemorrhage. The gra y-white matter interface appears maintained. No significant atrophy. White matter unremarkable by C T. Cerebellum: No acute abnormality. Mass effect: No evidence of mass effect or midline shift. Intracranial vasculature: Atherosclerotic calcifications of the larger arteries near the skull base. Soft tissues: Normal. Visualized orbits: Orbital contents appear grossly intact. Calvarium/osseous structures: No evidence of calvarial fracture. Paranasal sinuses and mastoid air cells: Developmentally nonpneumatized right frontal sinus. Otherwi se clear. MRI is more sensitive for detecting acute processes such as infarct, and may be considered if clinica lly warranted. IMPRESSION: No acute intracranial CT abnormality.
--- NOTE | 2023-08-16 10:36 | XR ---
EXAMINATION TYPE: XR chest 2V DATE OF EXAM: 08/16/2023 COMPARISON: 06/21/2021 HISTORY: 52-year-old male with cough TECHNIQUE: PA and lateral views FINDINGS: The cardiomediastinal silhouette, aorta, and pulmonary vasculature are within normal limits. Lungs an d pleural spaces are clear. ACDF hardware. IMPRESSION: No acute cardiopulmonary process.
--- NOTE | 2023-08-16 12:40 | ED ---
Medical Decision Making - Medical Decision Making Previous charting was reviewed showing the patient had ID confirmed staph aureus bladder infection. Patient blood cultures shows sensitivity to third generation cephalosporins. Patient given prescription for oral cefpodoxime - Lab Data Result diagrams: 08/16/23 09:43 08/16/23 09:43 Lab Results 08/16/23 08/16/23 08/16/23 Range/Units 09:00 09:43 09:43 WBC 8.4 (3.8-10.6) k/uL RBC 5.19 (4.30-5.90) m/uL Hgb 14.9 (13.0-17.5) gm/dL Hct 45.1 (39.0-53.0) % MCV 86.9 (80.0-100.0) fL MCH 28.7 (25.0-35.0) pg MCHC 33.0 (31.0-37.0) g/dL RDW 13.3 (11.5-15.5) % Plt Count 144 L (150-450) k/uL MPV 8.0 Neutrophils % 87 % Lymphocytes % 6 % Monocytes % 5 % Eosinophils % 0 % Basophils % 0 % Neutrophils # 7.3 (1.3-7.7) k/uL Lymphocytes # 0.5 L (1.0-4.8) k/uL Monocytes # 0.5 (0-1.0) k/uL Eosinophils # 0.0 (0-0.7) k/uL Basophils # 0.0 (0-0.2) k/uL PT (10.0-12.5) sec INR (<1.2) APTT (22.0-30.0) sec Sodium 133 L (137-145) mmol/L Potassium 3.9 (3.5-5.1) mmol/L Chloride 96 L (98-107) mmol/L Carbon Dioxide 22 (22-30) mmol/L Anion Gap 15 mmol/L BUN 17 (9-20) mg/dL Creatinine 0.98 (0.66-1.25) mg/dL Est GFR (CKD-EPI)AfAm >90 (>60 ml/min/1.73 sqM) Est GFR (CKD-EPI)NonAf 89 (>60 ml/min/1.73 sqM) Glucose 424 H (74-99) mg/dL Lactic Ac Sepsis Rflx Plasma Lactic Acid Thomas (0.7-2.0) mmol/L Calcium 8.7 (8.4-10.2) mg/dL Magnesium 1.8 (1.6-2.3) mg/dL Total Bilirubin 1.0 (0.2-1.3) mg/dL AST 24 (17-59) U/L ALT 23 (4-49) U/L Alkaline Phosphatase 97 (38-126) U/L Total Protein 8.2 (6.3-8.2) g/dL Albumin 4.2 (3.5-5.0) g/dL Influenza Type A (PCR) Not Detected (Not Detectd) Influenza Type B (PCR) Not Detected (Not Detectd) RSV (PCR) Not Detected (Not Detectd) SARS-CoV-2 (PCR) Not Detected (Not Detectd) 08/16/23 08/16/23 08/16/23 Range/Units 09:43 09:43 10:06 WBC (3.8-10.6) k/uL RBC (4.30-5.90) m/uL Hgb (13.0-17.5) gm/dL Hct (39.0-53.0) % MCV (80.0-100.0) fL MCH (25.0-35.0) pg MCHC (31.0-37.0) g/dL RDW (11.5-15.5) % Plt Count (150-450) k/uL MPV Neutrophils % % Lymphocytes % % Monocytes % % Eosinophils % % Basophils % % Neutrophils # (1.3-7.7) k/uL Lymphocytes # (1.0-4.8) k/uL Monocytes # (0-1.0) k/uL Eosinophils # (0-0.7) k/uL Basophils # (0-0.2) k/uL PT 12.4 (10.0-12.5) sec INR 1.2 H (<1.2) APTT 26.1 (22.0-30.0) sec Sodium (137-145) mmol/L Potassium (3.5-5.1) mmol/L Chloride (98-107) mmol/L Carbon Dioxide (22-30) mmol/L Anion Gap mmol/L BUN (9-20) mg/dL Creatinine (0.66-1.25) mg/dL Est GFR (CKD-EPI)AfAm (>60 ml/min/1.73 sqM) Est GFR (CKD-EPI)NonAf (>60 ml/min/1.73 sqM) Glucose (74-99) mg/dL Lactic Ac Sepsis Rflx Y Plasma Lactic Acid Thomas 2.7 H* (0.7-2.0) mmol/L Calcium (8.4-10.2) mg/dL Magnesium (1.6-2.3) mg/dL Total Bilirubin (0.2-1.3) mg/dL AST (17-59) U/L ALT (4-49) U/L Alkaline Phosphatase (38-126) U/L Total Protein (6.3-8.2) g/dL Albumin (3.5-5.0) g/dL Influenza Type A (PCR) (Not Detectd) Influenza Type B (PCR) (Not Detectd) RSV (PCR) (Not Detectd) SARS-CoV-2 (PCR) (Not Detectd) 08/16/23 Range/Units 11:17 WBC (3.8-10.6) k/uL RBC (4.30-5.90) m/uL Hgb (13.0-17.5) gm/dL Hct (39.0-53.0) % MCV (80.0-100.0) fL MCH (25.0-35.0) pg MCHC (31.0-37.0) g/dL RDW (11.5-15.5) % Plt Count (150-450) k/uL MPV Neutrophils % % Lymphocytes % % Monocytes % % Eosinophils % % Basophils % % Neutrophils # (1.3-7.7) k/uL Lymphocytes # (1.0-4.8) k/uL Monocytes # (0-1.0) k/uL Eosinophils # (0-0.7) k/uL Basophils # (0-0.2) k/uL PT (10.0-12.5) sec INR (<1.2) APTT (22.0-30.0) sec Sodium (137-145) mmol/L Potassium (3.5-5.1) mmol/L Chloride (98-107) mmol/L Carbon Dioxide (22-30) mmol/L Anion Gap mmol/L BUN (9-20) mg/dL Creatinine (0.66-1.25) mg/dL Est GFR (CKD-EPI)AfAm (>60 ml/min/1.73 sqM) Est GFR (CKD-EPI)NonAf (>60 ml/min/1.73 sqM) Glucose (74-99) mg/dL Lactic Ac Sepsis Rflx Plasma Lactic Acid Thomas 1.5 (0.7-2.0) mmol/L Calcium (8.4-10.2) mg/dL Magnesium (1.6-2.3) mg/dL Total Bilirubin (0.2-1.3) mg/dL AST (17-59) U/L ALT (4-49) U/L Alkaline Phosphatase (38-126) U/L Total Protein (6.3-8.2) g/dL Albumin (3.5-5.0) g/dL Influenza Type A (PCR) (Not Detectd) Influenza Type B (PCR) (Not Detectd) RSV (PCR) (Not Detectd) SARS-CoV-2 (PCR) (Not Detectd) Disposition Clinical Impression: Fever Disposition: HOME SELF-CARE Condition: Fair Instructions (If sedation given, give patient instructions): Fever in Adults (ED) Prescriptions: Cefpodoxime Proxetil [Vantin] 200 mg PO Q12HR 10 Days #20 tab Is patient prescribed a controlled substance at d/c from ED?: No Referrals: Huong Jean MD [Primary Care Provider] - 1-2 days
[2023-08-16] MEDS ORDERED: HYDROcodone/APAP 5-325MG 1 EACH TAB PO STA (13:07)
[2023-08-16 13:53] VITALS: BP 140/90; PULSE 116; RESP 12; TEMP 98.9
== END 2023-08-16 13:46 | disposition home or self-care (01) ==
LOC: EC 08:40
DX: R50.9 Fever, unspecified (principal); I10 Essential (primary) hypertension; E11.9 Type 2 diabetes mellitus without complications; Z79.84 Long term (current) use of oral hypoglycemic drugs; Z79.899 Other long term (current) drug therapy; Z88.4 Allergy status to anesthetic agent; Z88.8 Allergy status to other drugs, medicaments and biological substances; Z20.822 Contact with and (suspected) exposure to COVID-19
CPT/HCPCS: 36415; 70450; 71046; 80053; 83605; 83735; 85025; 85610; 85730; 87040; 87077; 87186; 87636; 93005; 96360; 99285

== ENCOUNTER → 2023-09-29 | Outpatient (CLI) | payer MEDICARE | END | disposition home or self-care (01) | LOC: LABWHC1 07:45 | PROVIDERS: ATTEND Internal Medicine Infectious Disease | DX: A41.9 Sepsis, unspecified organism (principal) | CPT/HCPCS: 87040 ==

== ENCOUNTER → 2023-10-03 | Outpatient (CLI) | payer MEDICARE ==
--- NOTE | 2023-10-06 10:44 | NM ---
EXAMINATION TYPE: NM WBC whole body DATE OF EXAM: 10/03/2023 COMPARISON: 06/25/2021 CLINICAL INDICATION: Male, 53 years old with history of R78.81 BACTEREMIA A41.9 SEPSIS; TECHNIQUE: Following administration of 14.9 mCi Tc99m Ceretec. Images obtained 3 hours post injecti on. FINDINGS: Normal physiological tracer activity is noted in the liver and spleen and in the bone marrow of the a xial and appendicular skeleton. There is a small focus of radiotracer at the distal left foot digit which is a new focus from compari son. Correlation with plain film of the left foot is recommended attention metatarsophalangeal joint region digit. No suspicious radiotracer accumulation elsewhere within the body to suggest fever of unknown origin i s identified. IMPRESSION: Abnormal uptake region of the metatarsophalangeal joint left foot fifth digit. Plain film correlation recommended.
== END | disposition home or self-care (01) ==
LOC: RADNMMAIN 09-29 07:02
PROVIDERS: ATTEND Internal Medicine Infectious Disease
DX: A41.9 Sepsis, unspecified organism (principal)
CPT/HCPCS: 78306; A9569

== ENCOUNTER → 2023-10-06 | Outpatient (CLI) | payer MEDICARE | END | disposition home or self-care (01) | LOC: LABWHC1 11:02 | PROVIDERS: ATTEND Physician Assistant Medical | DX: I51.7 Cardiomegaly (principal); I25.2 Old myocardial infarction; R00.0 Tachycardia, unspecified; Z79.899 Other long term (current) drug therapy; R94.31 Abnormal electrocardiogram [ECG] [EKG] | CPT/HCPCS: 93005 ==

== ENCOUNTER → 2023-10-06 | Outpatient (CLI) | payer OTHER ==
[2023-10-06 11:38] VITALS: BP 152/84; PULSE 99; RESP 15; TEMP 97.5
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
== END ==
LOC: PNWHC3 10:32
PROVIDERS: ATTEND Specialist
DX: M51.36 Other intervertebral disc degeneration, lumbar region (principal); M47.816 Spondylosis without myelopathy or radiculopathy, lumbar region; G89.29 Other chronic pain; Z79.891 Long term (current) use of opiate analgesic; Z88.8 Allergy status to other drugs, medicaments and biological substances; Z88.4 Allergy status to anesthetic agent
CPT/HCPCS: 80307; 99212

== ENCOUNTER → 2023-12-01 | Outpatient (CLI) | payer MEDICARE, OTHER ==
[2023-12-01 12:30] VITALS: BP 192/118; PULSE 102; RESP 16
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
== END ==
LOC: PNWHC3 10:10
PROVIDERS: ATTEND Specialist
DX: S87.82XA Crushing injury of left lower leg, initial encounter (principal); M47.816 Spondylosis without myelopathy or radiculopathy, lumbar region; G89.29 Other chronic pain; Z79.891 Long term (current) use of opiate analgesic; Z88.8 Allergy status to other drugs, medicaments and biological substances
CPT/HCPCS: 99211

== ENCOUNTER → 2024-02-23 | Outpatient (CLI) | payer OTHER ==
[2024-02-23 11:07] VITALS: BP 160/93; PULSE 89; RESP 16
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
== END ==
LOC: PNWHC3 01-26 10:13
PROVIDERS: ATTEND Specialist
DX: S87.82XA Crushing injury of left lower leg, initial encounter (principal); S87.81XA Crushing injury of right lower leg, initial encounter; M47.816 Spondylosis without myelopathy or radiculopathy, lumbar region; Z79.891 Long term (current) use of opiate analgesic; Z88.8 Allergy status to other drugs, medicaments and biological substances; X58.XXXA Exposure to other specified factors, initial encounter
CPT/HCPCS: 99211

== ENCOUNTER → 2024-04-23 | Outpatient (CLI) | payer OTHER ==
[2024-04-23 13:24] VITALS: BP 167/109; PULSE 89; RESP 16; TEMP 97.6
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
== END ==
LOC: PNWHC3 12:58
PROVIDERS: ATTEND Specialist
DX: G89.4 Chronic pain syndrome
CPT/HCPCS: 99211

== ENCOUNTER → 2024-06-21 | Outpatient (CLI) | payer OTHER ==
[2024-06-21 11:13] VITALS: BP 167/97; PULSE 118; RESP 17; TEMP 98
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
== END ==
LOC: PNWHC3 10:53
PROVIDERS: ATTEND Specialist
DX: S87.82XA Crushing injury of left lower leg, initial encounter (principal); M12.58 Traumatic arthropathy, other specified site; Z79.891 Long term (current) use of opiate analgesic; Z88.8 Allergy status to other drugs, medicaments and biological substances; W23.0XXA Caught, crushed, jammed, or pinched between moving objects, initial encounter
CPT/HCPCS: 99211

== ENCOUNTER → 2024-06-21 | Outpatient (CLI) | payer OTHER | END | disposition home or self-care (01) | LOC: LABWHC1 11:30 | PROVIDERS: ATTEND Physician Assistant Medical | DX: Z79.891 Long term (current) use of opiate analgesic (principal) | CPT/HCPCS: 36415; 93005 ==

== ENCOUNTER → 2024-08-30 | Outpatient (CLI) | payer MEDICARE, OTHER ==
[2024-08-30 14:00] VITALS: BP 163/104; PULSE 102; RESP 18; TEMP 97.8
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
== END ==
LOC: PNWHC3 12:58
PROVIDERS: ATTEND Specialist
DX: M25.522 Pain in left elbow (principal); M25.521 Pain in right elbow; Z88.8 Allergy status to other drugs, medicaments and biological substances; W23.0XXA Caught, crushed, jammed, or pinched between moving objects, initial encounter
CPT/HCPCS: 99211

== ENCOUNTER → 2024-11-01 | Outpatient (CLI) | payer OTHER ==
[2024-11-01 13:39] VITALS: BP 155/95; PULSE 110; RESP 17; TEMP 98.6
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
== END ==
LOC: PNWHC3 13:07
PROVIDERS: ATTEND Specialist
DX: S87.81XA Crushing injury of right lower leg, initial encounter (principal); S87.82XA Crushing injury of left lower leg, initial encounter; W23.0XXA Caught, crushed, jammed, or pinched between moving objects, initial encounter; Z88.4 Allergy status to anesthetic agent; Z88.8 Allergy status to other drugs, medicaments and biological substances
CPT/HCPCS: 80307; 99212

== ENCOUNTER → 2025-02-13 | Outpatient (CLI) | payer OTHER ==
[2025-02-13 10:35] VITALS: BP 144/85; PULSE 98; RESP 19; TEMP 97.9
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
== END ==
LOC: PNWHC3 09:36
PROVIDERS: ATTEND Specialist
DX: S87.82XA Crushing injury of left lower leg, initial encounter (principal); S87.81XA Crushing injury of right lower leg, initial encounter; M19.90 Unspecified osteoarthritis, unspecified site; W23.0XXA Caught, crushed, jammed, or pinched between moving objects, initial encounter; Z88.4 Allergy status to anesthetic agent; Z88.8 Allergy status to other drugs, medicaments and biological substances
CPT/HCPCS: 99211